=== PATIENT | female | born 1945 | race Asian ===

== ENCOUNTER 2020-01-28 08:21 | Day surgery (SDC) | payer OTHER, SELFPAY ==
[2020-01-22 10:03] VITALS: BMI 26.1
--- NOTE | 2020-01-24 08:45 | MHC.SHP ---
Pre-Procedural Eval Section A The patient is an INPATIENT: No The History & Physical has been completed within 30 days and I have reviewed it.: Yes Section B Chief Complaint: Cataract Left Eye Allergies: Allergies Allergy/AdvReac Type Severity Reaction Status Date / Time beet [BEET] Allergy Severe THROAT Verified 01/22/20 10:14 SWELLING carrot [CARROT] Allergy Severe THROAT Verified 01/22/20 10:14 SWELLING plantain [PLANTAIN] Allergy Severe THROAT Verified 01/22/20 10:14 SWELLING ARI Inhibitors AdvReac Intermediate Cough Verified 01/22/20 10:14 [ARI INHIBITORS] simvastatin [SIMVASTATIN] AdvReac Intermediate Muscle Pain Verified 01/22/20 10:14 ZULMA FRUIT Allergy Severe THROAT Uncoded 01/22/20 10:14 SWELLING SEASONAL ALLERGIES Allergy Intermediate ITCHY Uncoded 01/22/20 10:14 EYES, RUNNY NOSE Plan Diagnosis/Plan: Unchanged Patient has been examined and remains a candidate for the planned procedure
--- NOTE | 2020-01-25 09:02 | P.CONAN_ITS ---
Documented by User: Enid Tang 01/25/20 09:03 HPI - Anesthesia Eval Consult details Narrative: 75yo F for Cataract PCP cleared [facility] Past Medical History Medical History Arthritis Diabetes Elevated cholesterol HTN (hypertension) Lab test negative for COVID-19 virus Patient speaks only a foreign language Family History Family History Father No problems noted. Mother No problems noted. Surgical History Surgical History H/O colonoscopy History of appendectomy History of hemorrhoidectomy History of total knee arthroplasty History of tubal ligation Social History Social History Are you a primary medicare specialist to a significant other at home: No Do you presently have visiting nurse or other home services: No Smoking Status: Never smoker Use of substances other than those prescribed or required for medical reasons: No Have you been hit, kicked, punched, or otherwise hurt by someone within the past year? If so, by whom?: No Advance Directives Information Provided: No Recently lost weight without trying: No Meds Allergies Allergy/AdvReac Type Severity Reaction Status Date / Time beet [BEET] Allergy Severe THROAT Verified 01/22/20 10:14 SWELLING carrot [CARROT] Allergy Severe THROAT Verified 01/22/20 10:14 SWELLING plantain [PLANTAIN] Allergy Severe THROAT Verified 01/22/20 10:14 SWELLING ARI Inhibitors AdvReac Intermediate Cough Verified 01/22/20 10:14 [ARI INHIBITORS] simvastatin [SIMVASTATIN] AdvReac Intermediate Muscle Pain Verified 01/22/20 10:14 ZULMA FRUIT Allergy Severe THROAT Uncoded 01/22/20 10:14 SWELLING SEASONAL ALLERGIES Allergy Intermediate ITCHY Uncoded 01/22/20 10:14 EYES, RUNNY NOSE Home Medications Medication Instructions Recorded Confirmed Type ascorbic acid (vitamin C) [Vitamin 500 mg PO DAILY 01/22/20 01/22/20 History C] aspirin [Aspirin Low Dose] 81 mg PO DAILY 01/22/20 01/22/20 History ferrous sulfate [iron] 325 mg PO DAILY 01/22/20 01/22/20 History glimepiride 2 mg PO QAM 01/22/20 01/22/20 History loratadine 10 mg PO DAILY 01/22/20 01/22/20 History losartan 50 mg PO DAILY 01/22/20 01/28/20 History metformin 500 mg PO BID 01/22/20 01/22/20 History sdtyvqgpgmkv-rizngrec-yyorwh 1 tab PO DAILY 01/22/20 01/22/20 History [Centrum Silver] pravastatin 10 mg PO BEDTIME 01/22/20 01/22/20 History Exam Exam Date and Time: January 25, 2020901 Height,Weight and Vital Signs: Height 4 ft 10.5 in Weight 57.606 kg Narrative Narrative: EKG: NSR Documented by User: Lisa Early 01/28/20 09:46 PMFSH Past Medical History Medical History Arthritis Diabetes Elevated cholesterol HTN (hypertension) Lab test negative for COVID-19 virus Patient speaks only a foreign language Family History Family History Father No problems noted. Mother No problems noted. Surgical History Surgical History H/O colonoscopy History of appendectomy History of hemorrhoidectomy History of total knee arthroplasty History of tubal ligation Social History Social History Are you a primary medicare specialist to a significant other at home: No Do you presently have visiting nurse or other home services: No Smoking Status: Never smoker Use of substances other than those prescribed or required for medical reasons: No Have you been hit, kicked, punched, or otherwise hurt by someone within the past year? If so, by whom?: No Advance Directives Information Provided: No Recently lost weight without trying: No Meds Allergies Allergy/AdvReac Type Severity Reaction Status Date / Time beet [BEET] Allergy Severe THROAT Verified 01/22/20 10:14 SWELLING carrot [CARROT] Allergy Severe THROAT Verified 01/22/20 10:14 SWELLING plantain [PLANTAIN] Allergy Severe THROAT Verified 01/22/20 10:14 SWELLING ARI Inhibitors AdvReac Intermediate Cough Verified 01/22/20 10:14 [ARI INHIBITORS] simvastatin [SIMVASTATIN] AdvReac Intermediate Muscle Pain Verified 01/22/20 10:14 ZULMA FRUIT Allergy Severe THROAT Uncoded 01/22/20 10:14 SWELLING SEASONAL ALLERGIES Allergy Intermediate ITCHY Uncoded 01/22/20 10:14 EYES, RUNNY NOSE Home Medications Medication Instructions Recorded Confirmed Type ascorbic acid (vitamin C) [Vitamin 500 mg PO DAILY 01/22/20 01/22/20 History C] aspirin [Aspirin Low Dose] 81 mg PO DAILY 01/22/20 01/22/20 History ferrous sulfate [iron] 325 mg PO DAILY 01/22/20 01/22/20 History glimepiride 2 mg PO QAM 01/22/20 01/22/20 History loratadine 10 mg PO DAILY 01/22/20 01/22/20 History losartan 50 mg PO DAILY 01/22/20 01/28/20 History metformin 500 mg PO BID 01/22/20 01/22/20 History jclwmhfbqvbn-kezdwend-wbzjcp 1 tab PO DAILY 01/22/20 01/22/20 History [Centrum Silver] pravastatin 10 mg PO BEDTIME 01/22/20 01/22/20 History Exam Airway Mallampati Class: II TM Dist: >3cm Neck ROM: Full Heart: RRR Lungs: CTA BL Assessment and Plan Assessment Anesthesia Assessment: Anesthesia Plan Discussed and Chart Reviewed Final Anesthetic Review ASA Class: II Final Preanesthetic Review: Meds/Allgs Chart Reviewed and Consent Obtained/Reviewed Patient Risk: Low Procedure Risk: Low Anesthetic Plan Anesthetic Plan: MAC: Disposition: Standard PACU Documented by User: Monica Husain 01/28/20 10:14 [facility] Past Medical History Medical History Arthritis Diabetes Elevated cholesterol HTN (hypertension) Lab test negative for COVID-19 virus Patient speaks only a foreign language Family History Family History Father No problems noted. Mother No problems noted. Surgical History Surgical History H/O colonoscopy History of appendectomy History of hemorrhoidectomy History of total knee arthroplasty History of tubal ligation Social History Social History Are you a primary medicare specialist to a significant other at home: No Do you presently have visiting nurse or other home services: No Smoking Status: Never smoker Use of substances other than those prescribed or required for medical reasons: No Have you been hit, kicked, punched, or otherwise hurt by someone within the past year? If so, by whom?: No Advance Directives Information Provided: No Recently lost weight without trying: No Meds Allergies Allergy/AdvReac Type Severity Reaction Status Date / Time beet [BEET] Allergy Severe THROAT Verified 01/22/20 10:14 SWELLING carrot [CARROT] Allergy Severe THROAT Verified 01/22/20 10:14 SWELLING plantain [PLANTAIN] Allergy Severe THROAT Verified 01/22/20 10:14 SWELLING ARI Inhibitors AdvReac Intermediate Cough Verified 01/22/20 10:14 [ARI INHIBITORS] simvastatin [SIMVASTATIN] AdvReac Intermediate Muscle Pain Verified 01/22/20 10:14 ZULMA FRUIT Allergy Severe THROAT Uncoded 01/22/20 10:14 SWELLING SEASONAL ALLERGIES Allergy Intermediate ITCHY Uncoded 01/22/20 10:14 EYES, RUNNY NOSE Home Medications Medication Instructions Recorded Confirmed Type ascorbic acid (vitamin C) [Vitamin 500 mg PO DAILY 01/22/20 01/22/20 History C] aspirin [Aspirin Low Dose] 81 mg PO DAILY 01/22/20 01/22/20 History ferrous sulfate [iron] 325 mg PO DAILY 01/22/20 01/22/20 History glimepiride 2 mg PO QAM 01/22/20 01/22/20 History loratadine 10 mg PO DAILY 01/22/20 01/22/20 History losartan 50 mg PO DAILY 01/22/20 01/28/20 History metformin 500 mg PO BID 01/22/20 01/22/20 History repdtrvbwlnh-etapwjls-ehnczs 1 tab PO DAILY 01/22/20 01/22/20 History [Centrum Silver] pravastatin 10 mg PO BEDTIME 01/22/20 01/22/20 History
[2020-01-28 09:50] LABS: Glucose, Whole Blood 113 mg/dL (60-115)
[2020-01-28 10:02] VITALS: BP 187/87; PULSE 71; RESP 20; TEMP 36.1; O2SAT 100
[2020-01-28] MEDS: Tetracaine HCl/PF 0.5% Oph Sol 4 ML DROPS 1 DROP EYE-LEFT (10:12)
[2020-01-28] MEDS: Tropicamide 1 % Ophth Sol 3 ML BTL 1 DROP EYE-LEFT ×3 (10:14→10:21)
--- NOTE | 2020-01-28 10:46 | HO.PNOPHT ---
Ophthalmology Procedure Procedure Ophthalmology Viscoelastic: Angela Bobbyt Dual Pack Pro Ophthalmology Lenses: TECNIS [id number] (23) Procedure Notes: PREOPERATIVE DIAGNOSIS: Decreased visual acuity left eye secondary to cataract POSTOPERATIVE DIAGNOSIS: Same PROCEDURE: Left cataract extraction with intraocular lens insertion SURGEON: Alcon Nicole M.D. ANESTHESIA: Topical/MAC ESTIMATED BLOOD LOSS: None COMPLICATIONS: None After obtaining informed consent, the patient was brought to the operation room suite and placed in the supine position. After adequate sedation per anesthesia, topical drops of Tetracaine were given to the left eye. The eye was then prepped and draped in the usual sterile fashion. The operating room microscope was then positioned over the operative eye and a lid speculum placed. A paracentesis was created. Viscoelastic was then instilled into the anterior chamber. A three plane incision was then created temporally, utilizing a 2.85 mm keratome. Capsulotomy forceps were then utilized to create a circular tear capsulotomy. Hydrodissection and hydrodelineation were carried out until adequate mobilization of the nucleus occurred. Phacoemulsification was then utilized to remove the dense central nucleus followed by removal of the cortical material utilizing the automated aspiration irrigation unit. Viscoat elastic was instilled into the posterior capsular bag followed by placement of a posterior chamber intraocular lens without difficulty. The residual Viscoat elastic was then removed utilizing the automated IA machine. The wound was check and found to be watertight. The patient tolerated the procedure well and the lid speculum was removed. Intracameral injection of Vigamox 0.1 mL followed by a subtenon injection of Kenalog-40 0.2 mL were administered. The patient will be seen in the a.m.
[2020-01-28 10:50] VITALS: BP 166/78; PULSE 71; RESP 16; TEMP 36.1; O2SAT 99
== END 2020-01-28 11:06 | disposition home or self-care (01) ==
PROVIDERS: PCP Internal Medicine; Visit Provider Ophthalmology
PROC: (CPT 66985; principal; 2020-01-28 10:40)
DX: H25.12 Age-related nuclear cataract, left eye (principal); H54.7 Unspecified visual loss; I10 Essential (primary) hypertension; E11.9 Type 2 diabetes mellitus without complications; Z79.84 Long term (current) use of oral hypoglycemic drugs; Z79.899 Other long term (current) drug therapy; Z88.8 Allergy status to other drugs, medicaments and biological substances; Z96.651 Presence of right artificial knee joint
CPT/HCPCS: 66984; 82947; J2250; J3010; J3300; V2632

== ENCOUNTER 2020-02-18 08:59 | Day surgery (SDC) | payer OTHER, SELFPAY ==
[2020-01-22 10:29] VITALS: BMI 26.1
--- NOTE | 2020-02-11 14:32 | HO.ANESPROP2 ---
Documented by User: Enid Tang 02/11/20 14:32 HPI - Anesthesia Eval Consult details Narrative: 75yo F for Cataract Extraction 1st eye: Fent 50, Midaz 1 PMFSH Past Medical History Medical History Arthritis Diabetes Elevated cholesterol HTN (hypertension) Lab test negative for COVID-19 virus Patient speaks only a foreign language Family History Family History Father No problems noted. Mother No problems noted. Surgical History Surgical History H/O colonoscopy History of appendectomy History of hemorrhoidectomy History of total knee arthroplasty History of tubal ligation Social History Social History Smoking Status: Never smoker Use of substances other than those prescribed or required for medical reasons: No Have you been hit, kicked, punched, or otherwise hurt by someone within the past year? If so, by whom?: No Advance Directives Information Provided: No Recently lost weight without trying: No Meds Allergies Allergy/AdvReac Type Severity Reaction Status Date / Time beet [BEET] Allergy Severe THROAT Verified 01/22/20 10:14 SWELLING carrot [CARROT] Allergy Severe THROAT Verified 01/22/20 10:14 SWELLING plantain [PLANTAIN] Allergy Severe THROAT Verified 01/22/20 10:14 SWELLING ARI Inhibitors AdvReac Intermediate Cough Verified 01/22/20 10:14 [ARI INHIBITORS] simvastatin [SIMVASTATIN] AdvReac Intermediate Muscle Pain Verified 01/22/20 10:14 ZULMA FRUIT Allergy Severe THROAT Uncoded 01/22/20 10:14 SWELLING SEASONAL ALLERGIES Allergy Intermediate ITCHY Uncoded 01/22/20 10:14 EYES, RUNNY NOSE Home Medications Medication Instructions Recorded Confirmed Type ascorbic acid (vitamin C) [Vitamin 500 mg PO DAILY 01/22/20 01/22/20 History C] aspirin [Aspirin Low Dose] 81 mg PO DAILY 01/22/20 01/22/20 History ferrous sulfate [iron] 325 mg PO DAILY 01/22/20 01/22/20 History glimepiride 2 mg PO QAM 01/22/20 01/22/20 History loratadine 10 mg PO DAILY 01/22/20 01/22/20 History losartan 50 mg PO DAILY 01/22/20 01/28/20 History metformin 500 mg PO BID 01/22/20 01/22/20 History rnrnaosnzzss-ytatwiom-gnbtns 1 tab PO DAILY 01/22/20 01/22/20 History [Centrum Silver] pravastatin 10 mg PO BEDTIME 01/22/20 01/22/20 History Exam Exam Date and Time: February 11, 2020 1432 Height,Weight and Vital Signs: Height 4 ft 10.5 in Weight 57.606 kg Assessment and Plan Assessment Anesthesia Assessment: Chart Reviewed Documented by User: Lisa Early 02/18/20 09:54 PMFSH Past Medical History Medical History Arthritis Diabetes Elevated cholesterol HTN (hypertension) Lab test negative for COVID-19 virus Patient speaks only a foreign language Family History Family History Father No problems noted. Mother No problems noted. Surgical History Surgical History H/O colonoscopy History of appendectomy History of hemorrhoidectomy History of total knee arthroplasty History of tubal ligation Social History Social History Smoking Status: Never smoker Use of substances other than those prescribed or required for medical reasons: No Have you been hit, kicked, punched, or otherwise hurt by someone within the past year? If so, by whom?: No Advance Directives Information Provided: No Recently lost weight without trying: No Meds Allergies Allergy/AdvReac Type Severity Reaction Status Date / Time beet [BEET] Allergy Severe THROAT Verified 01/22/20 10:14 SWELLING carrot [CARROT] Allergy Severe THROAT Verified 01/22/20 10:14 SWELLING plantain [PLANTAIN] Allergy Severe THROAT Verified 01/22/20 10:14 SWELLING ARI Inhibitors AdvReac Intermediate Cough Verified 01/22/20 10:14 [ARI INHIBITORS] simvastatin [SIMVASTATIN] AdvReac Intermediate Muscle Pain Verified 01/22/20 10:14 ZULMA FRUIT Allergy Severe THROAT Uncoded 01/22/20 10:14 SWELLING SEASONAL ALLERGIES Allergy Intermediate ITCHY Uncoded 01/22/20 10:14 EYES, RUNNY NOSE Home Medications Medication Instructions Recorded Confirmed Type ascorbic acid (vitamin C) [Vitamin 500 mg PO DAILY 01/22/20 01/22/20 History C] aspirin [Aspirin Low Dose] 81 mg PO DAILY 01/22/20 01/22/20 History ferrous sulfate [iron] 325 mg PO DAILY 01/22/20 01/22/20 History glimepiride 2 mg PO QAM 01/22/20 01/22/20 History loratadine 10 mg PO DAILY 01/22/20 01/22/20 History losartan 50 mg PO DAILY 01/22/20 01/28/20 History metformin 500 mg PO BID 01/22/20 01/22/20 History nddjjswtxkkh-lhslnntx-cvjeba 1 tab PO DAILY 01/22/20 01/22/20 History [Centrum Silver] pravastatin 10 mg PO BEDTIME 01/22/20 01/22/20 History Exam Airway Mallampati Class: III TM Dist: >3cm Neck ROM: Full Heart: RRR Lungs: CTA BL Assessment and Plan Assessment Anesthesia Assessment: Anesthesia Plan Discussed and Chart Reviewed Final Anesthetic Review NPO: Yes (Sip water with meds) ASA Class: III Final Preanesthetic Review: Meds/Allgs Chart Reviewed and Consent Obtained/Reviewed Patient Risk: Low Procedure Risk: Low Anesthetic Plan Anesthetic Plan: MAC: Disposition: Standard PACU
--- NOTE | 2020-02-12 13:11 | MHC.SHP ---
Pre-Procedural Eval Section A The patient is an INPATIENT: No The History & Physical has been completed within 30 days and I have reviewed it.: Yes Section B Chief Complaint: Cataract Right Eye Allergies: Allergies Allergy/AdvReac Type Severity Reaction Status Date / Time beet [BEET] Allergy Severe THROAT Verified 01/22/20 10:14 SWELLING carrot [CARROT] Allergy Severe THROAT Verified 01/22/20 10:14 SWELLING plantain [PLANTAIN] Allergy Severe THROAT Verified 01/22/20 10:14 SWELLING ARI Inhibitors AdvReac Intermediate Cough Verified 01/22/20 10:14 [ARI INHIBITORS] simvastatin [SIMVASTATIN] AdvReac Intermediate Muscle Pain Verified 01/22/20 10:14 ZULMA FRUIT Allergy Severe THROAT Uncoded 01/22/20 10:14 SWELLING SEASONAL ALLERGIES Allergy Intermediate ITCHY Uncoded 01/22/20 10:14 EYES, RUNNY NOSE Plan Diagnosis/Plan: Unchanged Patient has been examined and remains a candidate for the planned procedure
[2020-02-18 09:38] VITALS: BP 171/68; PULSE 76; RESP 16; TEMP 36.1; O2SAT 98
[2020-02-18 09:46] LABS: Glucose, Whole Blood 103 mg/dL (60-115)
[2020-02-18] MEDS: Tetracaine HCl/PF 0.5% Oph Sol 4 ML DROPS 1 DROP EYE-RIGHT (09:46)
[2020-02-18] MEDS: Tropicamide 1 % Ophth Sol 3 ML BTL 1 DROP EYE-RIGHT ×3 (09:48→09:57)
[2020-02-18] MEDS: Lactated Ringers 500 ML 50 ML IV (09:56)
[2020-02-18 10:01] VITALS: BP 171/68; PULSE 76; RESP 16; TEMP 36.1; O2SAT 98
--- NOTE | 2020-02-18 10:53 | HO.PNOPHT ---
Ophthalmology Procedure Procedure Date of Service: 02/18/20 Ophthalmology Viscoelastic: Healon Duet Dual Pack Pro Ophthalmology Lenses: TECNIS [id number] (23.5) Procedure Notes: PREOPERATIVE DIAGNOSIS: Decreased visual acuity right eye secondary to cataract POSTOPERATIVE DIAGNOSIS: Same PROCEDURE: Right cataract extraction with intraocular lens insertion SURGEON: Alcon Nicole M.D. ANESTHESIA: Topical/MAC ESTIMATED BLOOD LOSS: None COMPLICATIONS: None After obtaining informed consent, the patient was brought to the operating room suite and placed in the supine position. After adequate sedation per anesthesia, topical drops of Tetracaine were given to the right eye. The eye was then prepped and draped in the usual sterile fashion. The operating room microscope was then positioned over the operative eye and a lid speculum placed. A paracentesis was created. Viscoelastic was then instilled into the anterior chamber. A three plane incision was then created temporally, utilizing a 2.85 mm keratome. Capsulotomy forceps were then utilized to create a circular tear capsulotomy. Hydrodissection and hydrodelineation were carried out until adequate mobilization of the nucleus occurred. Phacoemulsification was then utilized to remove the dense central nucleus followed by removal of the cortical material utilizing the automated aspiration irrigation unit. Viscoelastic was instilled into the posterior capsular bag followed by placement of a posterior chamber intraocular lens without difficulty. The residual Viscoelastic was then removed utilizing the automated IA machine. The wound was checked and found to be watertight. The patient tolerated the procedure well and the lid speculum was removed. Intracameral injection of Vigamox 0.1 mL followed by a subtenon injection of Kenalog-40 0.2 mL were administered. The patient will be seen in the a.m.
[2020-02-18 10:55] VITALS: BP 147/84; PULSE 79; RESP 16; TEMP 37.1; O2SAT 96
== END 2020-02-18 11:15 | disposition home or self-care (01) ==
PROVIDERS: PCP Internal Medicine; Visit Provider Ophthalmology
PROC: (CPT 66985; principal; 2020-02-18 11:10)
DX: H25.11 Age-related nuclear cataract, right eye (principal); E11.9 Type 2 diabetes mellitus without complications; I10 Essential (primary) hypertension; Z79.84 Long term (current) use of oral hypoglycemic drugs; Z79.899 Other long term (current) drug therapy
CPT/HCPCS: 66984; 82947; J2250; J3010; J3300; V2632

== ENCOUNTER 2020-02-23 09:43 | Outpatient (REF) | payer OTHER, SELFPAY ==
[2020-02-23 10:24] LABS: MANUAL DIFF FLAG NO
[2020-02-23 10:45] LABS: Creatinine Urine 81.12 mg/dL; Microalbum/Creatinine Ratio Ur 20.9 ug/mg cr
[2020-02-23 10:50] LABS: Alanine Aminotransferase 19 U/L (0-31); Albumin Level 4.2 g/dL (3.5-5.0); Alkaline Phosphatase 50 U/L (39-117); Anion Gap 15 (12-20); Aspartate Amino Transferase 17 U/L (5-31); Bilirubin Total 0.6 mg/dL (0.0-1.0); Blood Urea Nitrogen 10 mg/dL (9-16); Calcium 9.6 mg/dL (8.4-10.2); Carbon Dioxide 28 mmol/L (22-29); Chloride 102 mmol/L (96-108); Cholesterol 174 mg/dL; Estimated Glomerular Filt Rate > 60; Glucose Fasting 118 mg/dL (60-99); HDL Cholesterol 46 mg/dL; LDL Cholesterol Calculated 105 mg/dl; Potassium 4.9 mmol/l (3.3-5.1); Sodium 140 mmol/L (135-145); Total Protein 7.7 g/dL (6.5-8.0); Triglycerides 116 mg/dL
[2020-02-23 11:04] LABS: Basophils Absolute Auto 0.1 X10*3/uL (0.0-0.2); Basophils Percent Auto 0.9 % (0-2); Eosinophils Absolute Auto 0.7 X10*3/uL (0.0-0.4); Eosinophils Percent Auto 10.4 % (0-4); Hematocrit 36.3 % (37-47); Hemoglobin 11.1 g/dl (12.0-16.0); Imm Gran Abs Auto 0.02 X10*3/uL (0.00-0.03); Imm Gran Pct Auto 0.3 % (0.0-0.4); Lymphocytes Absolute Auto 2.4 X10*3/uL (1.2-4.9); Lymphocytes Percent Auto 35.8 % (20-40); Mean Corpuscular HGB Conc 30.6 g/dl (31.0-35.0); Mean Corpuscular Hemoglobin 23.7 pg (27.0-33.0); Mean Corpuscular Volume 77.6 fL (80-98); Mean Platelet Volume 9.2 fL (9.4-12.3); Monocytes Absolute Auto 0.5 X10*3/uL (0.1-1.2); Monocytes Percent Auto 7.5 % (2-11); Neutrophils Percent Auto 45.1 % (45-73); Platelet Count 372 X10*3/uL (160-400); Red Blood Count 4.68 X10*6/uL (4.20-5.50); Red Cell Distribution Width 15.6 % (11.0-16.0); White Blood Count 6.7 X10*3/uL (4.8-10.8)
[2020-02-23 11:14] LABS: Thyroid Stimulating Hormone 1.52 uIU/mL (0.32-4.0); Vitamin D 25-OH Total 25.8 ng/mL (>30)
[2020-02-23 11:15] LABS: T4 Thyroxine 8.5 ug/dL (4.5-12.0)
[2020-02-25 09:39] LABS: Folate > 20.0 ng/mL (> or = 4.0); Vitamin B12 249 pg/mL (200-900)
== END 2020-02-23 09:44 | disposition home or self-care (01) ==
LOC: HO.LAB 09:43
PROVIDERS: PCP Internal Medicine; Visit Provider Internal Medicine
DX: E11.65 Type 2 diabetes mellitus with hyperglycemia (principal); I10 Essential (primary) hypertension; E78.00 Pure hypercholesterolemia, unspecified
CPT/HCPCS: 36415; 80053; 80061; 82043; 82306; 82607; 82746; 84436; 84443; 85025

== ENCOUNTER 2020-10-18 09:33 | Outpatient (REF) | payer OTHER, SELFPAY ==
[2020-10-18 10:43] LABS: MANUAL DIFF FLAG NO
[2020-10-18 10:48] LABS: Basophils Absolute Auto 0.1 X10*3/uL (0.0-0.2); Basophils Percent Auto 0.9 % (0-2); Eosinophils Absolute Auto 0.5 X10*3/uL (0.0-0.4); Eosinophils Percent Auto 7.7 % (0-4); Hemoglobin 12.9 g/dl (12.0-16.0); Imm Gran Abs Auto 0.03 X10*3/uL (0.00-0.03); Imm Gran Pct Auto 0.5 % (0.0-0.4); Immature Retic Fraction 10.6 % (3.0-15.9); Lymphocytes Absolute Auto 2.5 X10*3/uL (1.2-4.9); Lymphocytes Percent Auto 38.2 % (20-40); Mean Corpuscular HGB Conc 33.1 g/dl (31.0-35.0); Mean Corpuscular Hemoglobin 29.1 pg (27.0-33.0); Mean Corpuscular Volume 87.8 fL (80-98); Mean Platelet Volume 9.3 fL (9.4-12.3); Monocytes Absolute Auto 0.5 X10*3/uL (0.1-1.2); Monocytes Percent Auto 7.9 % (2-11); Neutrophils Percent Auto 44.8 % (45-73); Platelet Count 287 X10*3/uL (160-400); Red Blood Count 4.44 X10*6/uL (4.20-5.50); Red Cell Distribution Width 12.7 % (11.0-16.0); Retic HGB Equivalent 32.5 pg (30.0-35.0); Reticulocyte Percent 1.4 % (0.5-1.8); Reticulocytes Absolute 0.063 X10*6/uL (0.026-0.095); White Blood Count 6.6 X10*3/uL (4.8-10.8)
[2020-10-18 10:54] LABS: Estimated Average Glucose 157 mg/dL; Hemoglobin A1c % 7.1 %
[2020-10-18 11:11] LABS: Alanine Aminotransferase 17 U/L (0-31); Albumin Level 4.3 g/dL (3.5-5.0); Alkaline Phosphatase 46 U/L (39-117); Anion Gap 16 (12-20); Aspartate Amino Transferase 15 U/L (5-31); Bilirubin Total 0.4 mg/dL (0.0-1.0); Blood Urea Nitrogen 7 mg/dL (9-16); Calcium 9.9 mg/dL (8.4-10.2); Carbon Dioxide 25 mmol/L (22-29); Chloride 104 mmol/L (96-108); Cholesterol 147 mg/dL; Estimated Glomerular Filt Rate > 60; Glucose Random 122 mg/dL (60-115); HDL Cholesterol 34 mg/dL; Iron 67 mcg/dL (30-160); LDL Cholesterol Calculated 70 mg/dl; Percent Iron Saturation 18 % (15-50); Potassium 4.6 mmol/L (3.3-5.1); Sodium 140 mmol/L (135-145); Total Iron Binding Capacity 380 mcg/dL (228-428); Total Protein 7.5 g/dL (6.5-8.0); Triglycerides 219 mg/dL; Unsaturated Iron Binding 313 ug/dL
[2020-10-18 11:32] LABS: Ferritin 53 ng/mL (10-250)
[2020-10-20 08:57] LABS: Folate > 20.0 ng/mL (> or = 4.0); Vitamin B12 1117 pg/mL (200-900)
== END 2020-10-18 09:34 | disposition home or self-care (01) ==
LOC: HO.LAB 09:33
PROVIDERS: PCP Internal Medicine; Visit Provider Internal Medicine
DX: E78.00 Pure hypercholesterolemia, unspecified (principal); D50.8 Other iron deficiency anemias; E11.65 Type 2 diabetes mellitus with hyperglycemia; E53.8 Deficiency of other specified B group vitamins
CPT/HCPCS: 36415; 80053; 80061; 82607; 82728; 82746; 83036; 83540; 85025; 85045

== ENCOUNTER 2021-03-05 09:32 | Outpatient (REF) | payer OTHER, SELFPAY ==
[2021-03-05 09:56] LABS: MANUAL DIFF FLAG NO
[2021-03-05 10:21] LABS: Basophils Percent Auto 0.7 % (0-2); Eosinophils Absolute Auto 0.5 X10*3/uL (0.0-0.4); Eosinophils Percent Auto 7.6 % (0-4); Hematocrit 39.9 % (37.0-47.0); Hemoglobin 13.2 g/dl (12.0-16.0); Imm Gran Abs Auto 0.02 X10*3/uL (0.00-0.03); Imm Gran Pct Auto 0.3 % (0.0-0.4); Immature Retic Fraction 11.1 % (3.0-15.9); Lymphocytes Absolute Auto 2.4 X10*3/uL (1.2-4.9); Lymphocytes Percent Auto 40.4 % (20-40); Mean Corpuscular HGB Conc 33.1 g/dl (31.0-35.0); Mean Corpuscular Hemoglobin 28.6 pg (27.0-33.0); Mean Corpuscular Volume 86.6 fL (80.0-98.0); Mean Platelet Volume 9.2 fL (9.4-12.3); Monocytes Absolute Auto 0.6 X10*3/uL (0.1-1.2); Monocytes Percent Auto 9.6 % (2-11); Neutrophils Absolute Auto 2.5 x10*3/uL (2.0-8.3); Neutrophils Percent Auto 41.4 % (45-73); Platelet Count 268 X10*3/uL (160-400); Red Blood Count 4.61 X10*6/uL (4.20-5.50); Red Cell Distribution Width 12.9 % (11.0-16.0); Retic HGB Equivalent 32.1 pg (30.0-35.0); Reticulocyte Percent 1.6 % (0.5-1.8); Reticulocytes Absolute 0.072 X10*6/uL (0.026-0.095)
[2021-03-05 10:25] LABS: Estimated Average Glucose 160 mg/dL; Hemoglobin A1c % 7.2 %
[2021-03-05 11:05] LABS: Alanine Aminotransferase 22 U/L (0-31); Albumin Level 4.1 g/dL (3.5-5.0); Alkaline Phosphatase 46 U/L (39-117); Anion Gap 14 (12-20); Aspartate Amino Transferase 16 U/L (5-31); Bilirubin Total 0.6 mg/dL (0.0-1.0); Blood Urea Nitrogen 8 mg/dL (9-16); Calcium 10.4 mg/dL (8.4-10.2); Carbon Dioxide 30 mmol/L (22-29); Chloride 103 mmol/L (96-108); Cholesterol 165 mg/dL; Estimated Glomerular Filt Rate > 60; Glucose Random 126 mg/dL (60-115); HDL Cholesterol 36 mg/dL; Iron 117 mcg/dL (30-160); LDL Cholesterol Calculated 88 mg/dl; Percent Iron Saturation 29 % (15-50); Potassium 5.2 mmol/L (3.3-5.1); Sodium 142 mmol/L (135-145); Total Iron Binding Capacity 409 mcg/dL (228-428); Total Protein 7.4 g/dL (6.5-8.0); Triglycerides 205 mg/dL; Unsaturated Iron Binding 292 ug/dL
[2021-03-05 11:06] LABS: Microalbum/Creatinine Ratio Ur 16.8 ug/mg cr
[2021-03-05 11:20] LABS: Ferritin 41 ng/mL (10-250); Free T4 (Free Thyroxine) 0.92 ng/dL (0.71-1.85); Thyroid Stimulating Hormone 2.02 uIU/mL (0.32-4.0); Vitamin D 25-OH Total 19.1 ng/mL (>30)
[2021-03-05 11:54] LABS: Folate > 20.0 ng/mL (> or = 4.0); Vitamin B12 400 pg/mL (200-900)
== END 2021-03-05 09:33 | disposition home or self-care (01) ==
LOC: HO.LAB 09:32
PROVIDERS: Visit Provider Internal Medicine
DX: D50.8 Other iron deficiency anemias (principal); E11.65 Type 2 diabetes mellitus with hyperglycemia; E78.00 Pure hypercholesterolemia, unspecified; I10 Essential (primary) hypertension
CPT/HCPCS: 36415; 80053; 80061; 82043; 82306; 82607; 82728; 82746; 83036; 83540; 84439; 84443; 85025; 85045

== ENCOUNTER 2021-08-31 14:26 | Outpatient (REF) | payer OTHER, SELFPAY ==
--- NOTE | ~2021-08-31 | XR_ITS ---
EXAMINATION: XR CHEST CLINICAL INFORMATION: Exam M81.0 - Age-related osteoporosis without current pathological fracture COMPARISON: Chest radiographs 09/23/2017, 02/05/2016 TECHNIQUE: 2 views of the chest were obtained. FINDINGS: The lungs are clear. The heart is within normal size. The vascularity is normal. There is no pneumothorax, airspace consolidation, groundglass opacity, or effusion. The hilar and mediastinal contours are similar to prior study. No acute bony abnormality. Again, there are multilevel degenerative changes thoracic spine. There is gaseous gastric fundus below the left diaphragm. No free air. XR/XR chest 2V IMPRESSION: Unremarkable examination.
== END 2021-08-31 14:27 | disposition home or self-care (01) ==
LOC: HO.XRAY 14:26
PROVIDERS: PCP Internal Medicine; Visit Provider Internal Medicine
DX: M81.0 Age-related osteoporosis without current pathological fracture (principal)
CPT/HCPCS: 71046

== ENCOUNTER 2021-09-09 12:48 | Outpatient (REF) | payer OTHER, SELFPAY ==
--- NOTE | ~2021-09-09 | MM_ITS ---
EXAMINATION: BONE DENSITOMETRY CLINICAL INDICATION: Age-related osteoporosis without current pathological fracture. COMPARISON: Previous BD dated 02/01/2019 and baseline BD dated 05/01/2009. TECHNIQUE: Using a SMART DXA System (software version: 13.1) manufactured by [employer], dual-energy x-ray absorptiometry was performed of the lumbar spine and left hip. The images are of good technical quality. Summary results are attached. FINDINGS: AP SPINE L1-L4: Current: BMD 0.989 g/cm2, Z-score 0.4, T-score -1.6, osteopenia, 1.0% increase from previous, 8.3% increase from baseline (<5% change is not significant). Prior: BMD 0.979 g/cm2. Baseline: BMD 0.913 g/cm2. LEFT FEMUR, NECK: Current: BMD 0.744 g/cm2, Z-score 0.1, T-score -2.1, osteopenia. Prior: BMD 0.765 g/cm2. Baseline: BMD 0.806 g/cm2. LEFT FEMUR, TOTAL: Current: BMD 0.888 g/cm2, Z-score 1.1, T-score -0.9, normal, 2.4% decrease from previous, 7.0% decrease from baseline (<5% change is not significant). Prior: BMD 0.910 g/cm2. Baseline: BMD 0.955 g/cm2. IDENTIFIED RISK FACTORS: Osteoporosis, history of fracture (adult). Early menopause, secondary osteoporosis, hysterectomy, bilateral oophorectomy. HISTORY OF FRACTURE: None listed. MEDICATIONS: Vitamin D. MM/XR DEXA axial skeleton IMPRESSION: 1. DIAGNOSIS: Osteopenia based on the lowest T-score value of -2.1 in the femoral neck applying World Health Organization criteria. 2. 10-YEAR FRACTURE RISK PREDICTION, FRAX: Major osteoporotic fracture (clinical spine, forearm, hip or shoulder) 17.6%. Hip fracture 10.9%. 3. Treatment Recommendations: NOF guidelines recommend consideration for treatment in postmenopausal women and men age 50 and older presenting with the following: -A hip or vertebral (clinical or morphometric) fracture. -T-score less than or equal to -2.5 at the femoral neck or spine after appropriate evaluation to exclude secondary causes. -Low bone mass at the hip or spine and a 10-year fracture probability by FRAX of greater than or equal to 3% for hip fracture or greater than or equal to 20% for major osteoporotic fracture based on the [place] adapted WHO algorithm. 4. Other Recommendations: All treatment decisions require clinical judgment and consideration of individual patient factors, including patient preferences, comorbidities, previous drug use, risk factors not captured in the FRAX model (e.g. frailty, falls, vitamin D deficiency, increased bone turnover, interval significant decline in bone density) and possible under or overestimation of fracture risk by FRAX. Additional medical evaluation for secondary cause of low bone mineral density may be appropriate. FUTURE SCAN RECOMMENDATION: People with diagnosed cases of osteoporosis or at high risk for fracture should have regular bone mineral density tests. For patients eligible for Medicare, routine testing is allowed once every 2 years. The testing frequency can be increased to one year for patients who have rapidly progressing disease, those who are receiving or discontinuing medical therapy to restore bone mass, or have additional risk factors.
== END 2021-09-09 12:49 | disposition home or self-care (01) ==
LOC: HO.MAMMO 12:48
PROVIDERS: PCP Internal Medicine; Visit Provider Internal Medicine
DX: Z13.820 Encounter for screening for osteoporosis (principal); M81.0 Age-related osteoporosis without current pathological fracture; Z78.0 Asymptomatic menopausal state
CPT/HCPCS: 77080

== ENCOUNTER 2021-12-03 12:34 | Outpatient (REF) | payer OTHER, SELFPAY ==
--- NOTE | ~2021-12-03 | XR_ITS ---
EXAMINATION: X-RAY KNEES STANDING BILATERAL CLINICAL INFORMATION: Right knee pain. COMPARISON: 01/08/2019 knee radiographs. TECHNIQUE: Lateral and axillary views of the left knee were obtained along with bilateral standing AP views of the knees. FINDINGS: Moderate to severe tricompartmental degenerative joint changes are seen in the left knee most pronounced in the medial femoral-tibial compartment with joint space narrowing and periarticular sclerosis. There is a trace suprapatellar joint effusion. No acute fracture. The soft tissues are unremarkable. Right knee hardware appears intact without abnormality. XR/XR knee LT 2V IMPRESSION: 1. Left knee moderate to severe degenerative joint changes without acute abnormality or significant change. 2. No overt right knee hardware abnormality.
--- NOTE | ~2021-12-03 | XR_ITS ---
EXAMINATION: X-RAY KNEES STANDING BILATERAL CLINICAL INFORMATION: Right knee pain. COMPARISON: 01/08/2019 knee radiographs. TECHNIQUE: Lateral and axillary views of the left knee were obtained along with bilateral standing AP views of the knees. FINDINGS: Moderate to severe tricompartmental degenerative joint changes are seen in the left knee most pronounced in the medial femoral-tibial compartment with joint space narrowing and periarticular sclerosis. There is a trace suprapatellar joint effusion. No acute fracture. The soft tissues are unremarkable. Right knee hardware appears intact without abnormality. XR/XR knee standing BI IMPRESSION: 1. Left knee moderate to severe degenerative joint changes without acute abnormality or significant change. 2. No overt right knee hardware abnormality.
== END 2021-12-03 12:35 | disposition home or self-care (01) ==
LOC: HO.HOSX 12:34
PROVIDERS: Visit Provider Physician Assistant
DX: M17.12 Unilateral primary osteoarthritis, left knee (principal)
CPT/HCPCS: 20610; 73560; 73565; J1020

== ENCOUNTER → 2022-01-21 13:55 | Outpatient (BNVA) | payer OTHER, SELFPAY | PROVIDERS: PCP Internal Medicine; Visit Provider Physician Assistant | DX: M17.12 Unilateral primary osteoarthritis, left knee (principal) | CPT/HCPCS: 20610; J7323 ==

== ENCOUNTER → 2022-01-28 13:19 | Outpatient (BNVA) | payer OTHER, SELFPAY | PROVIDERS: PCP Internal Medicine; Visit Provider Physician Assistant | DX: M17.12 Unilateral primary osteoarthritis, left knee (principal) | CPT/HCPCS: 20610; J7323 ==

== ENCOUNTER → 2022-02-04 13:16 | Outpatient (BNVA) | payer OTHER, SELFPAY | PROVIDERS: PCP Internal Medicine; Visit Provider Physician Assistant | DX: M17.12 Unilateral primary osteoarthritis, left knee (principal) | CPT/HCPCS: 20610; J7323 ==

== ENCOUNTER 2022-05-26 09:45 | Outpatient (REF) | payer OTHER, SELFPAY ==
[2022-05-26 10:10] LABS: MANUAL DIFF FLAG NO
[2022-05-26 10:28] LABS: Basophils Absolute Auto 0.1 X10*3/uL (0.0-0.2); Basophils Percent Auto 0.9 % (0-2); Eosinophils Absolute Auto 0.5 X10*3/uL (0.0-0.4); Eosinophils Percent Auto 7.8 % (0-4); Hematocrit 39.2 % (37.0-47.0); Imm Gran Abs Auto 0.02 X10*3/uL (0.00-0.03); Imm Gran Pct Auto 0.3 % (0.0-0.4); Lymphocytes Absolute Auto 2.6 X10*3/uL (1.2-4.9); Lymphocytes Percent Auto 40.2 % (20-40); Mean Corpuscular HGB Conc 33.2 g/dl (31.0-35.0); Mean Corpuscular Hemoglobin 27.9 pg (27.0-33.0); Mean Corpuscular Volume 84.1 fL (80.0-98.0); Mean Platelet Volume 9.1 fL (9.4-12.3); Monocytes Absolute Auto 0.6 X10*3/uL (0.1-1.2); Monocytes Percent Auto 8.6 % (2-11); Neutrophils Absolute Auto 2.7 x10*3/uL (2.0-8.3); Neutrophils Percent Auto 42.2 % (45-73); Platelet Count 280 X10*3/uL (160-400); Red Blood Count 4.66 X10*6/uL (4.20-5.50); White Blood Count 6.4 X10*3/uL (4.8-10.8)
[2022-05-26 10:41] LABS: Estimated Average Glucose 186 mg/dL; Hemoglobin A1c % 8.1 %
[2022-05-26 11:07] LABS: Alanine Aminotransferase 19 U/L (0-31); Albumin Level 4.2 g/dL (3.5-5.0); Alkaline Phosphatase 48 U/L (39-117); Anion Gap 15 (12-20); Aspartate Amino Transferase 16 U/L (5-31); Bilirubin Total 0.6 mg/dL (0.0-1.0); Blood Urea Nitrogen 8 mg/dL (9-16); Calcium 9.9 mg/dL (8.4-10.2); Carbon Dioxide 28 mmol/L (22-29); Chloride 104 mmol/L (96-108); Cholesterol 180 mg/dL; Estimated Glomerular Filt Rate > 60; Glucose Random 143 mg/dL (60-115); HDL Cholesterol 37 mg/dL; LDL Cholesterol Calculated 98 mg/dl; Potassium 4.9 mmol/L (3.3-5.1); Sodium 142 mmol/L (135-145); Total Protein 7.2 g/dL (6.5-8.0); Triglycerides 229 mg/dL
[2022-05-26 11:39] LABS: Folate 12.3 ng/mL (> or = 4.0); Free T4 (Free Thyroxine) 0.92 ng/dL (0.71-1.85); Vitamin B12 384 pg/mL (200-900); Vitamin D 25-OH Total 46.9 ng/mL (>30)
[2022-05-26 12:17] LABS: Microalbum/Creatinine Ratio Ur 16.5 ug/mg cr
== END 2022-05-26 09:46 | disposition home or self-care (01) ==
LOC: HO.LAB 09:45
PROVIDERS: PCP Internal Medicine; Visit Provider Internal Medicine
DX: E11.65 Type 2 diabetes mellitus with hyperglycemia (principal); E78.00 Pure hypercholesterolemia, unspecified; I10 Essential (primary) hypertension; M85.80 Other specified disorders of bone density and structure, unspecified site; E55.9 Vitamin D deficiency, unspecified
CPT/HCPCS: 36415; 80053; 80061; 82043; 82306; 82607; 82746; 83036; 84439; 84443; 85025

== ENCOUNTER 2022-06-09 12:13 | Outpatient (REF) | payer OTHER, SELFPAY ==
[2022-06-09 13:04] LABS: INTERNATIONAL NORM RATIO 1.1 (0.9-1.1); Prothrombin Time 13.2 SEC (10.0-13.1)
== END 2022-06-09 12:14 | disposition home or self-care (01) ==
LOC: HO.LAB 12:13
PROVIDERS: PCP Internal Medicine; Visit Provider Nurse Practitioner Family
DX: Z01.818 Encounter for other preprocedural examination (principal); E11.65 Type 2 diabetes mellitus with hyperglycemia; I10 Essential (primary) hypertension; D50.9 Iron deficiency anemia, unspecified; E11.9 Type 2 diabetes mellitus without complications; Z96.652 Presence of left artificial knee joint
CPT/HCPCS: 36415; 85610

== ENCOUNTER → 2022-06-25 10:26 | Outpatient (BNVA) | payer OTHER, SELFPAY | PROVIDERS: PCP Internal Medicine; Visit Provider Physician Assistant | DX: Z13.89 Encounter for screening for other disorder (principal) ==

== ENCOUNTER 2022-06-30 06:39 | Inpatient (IN) | payer OTHER, SELFPAY ==
[2022-06-23 12:16] VITALS: BP 145/67; PULSE 84; RESP 20; O2SAT 97; BMI 27.1
[2022-06-23 15:01] LABS: MRSA Nasal PCR NEGATIVE (Negative); SA Nasal PCR NEGATIVE (Negative)
--- NOTE | 2022-06-29 09:00 | P.CONAN_ITS ---
Documented by User: Enid Tang NP 06/29/22 09:05 HPI - Anesthesia Eval Consult details Narrative: 77yo F for Left Knee Replacement Total PCP cleared Right [facility] Active Problems Active Problems: All Active Problems (Updated 06/09/22 @ 11:55 by PAMELA Boo) HTN (hypertension) (Acute) Iron deficiency anemia (Acute) Allergic rhinitis (Acute) Cough (Acute) Osteoarthritis of left knee (Acute) Osteopenia (Acute) Preoperative clearance (Acute) Hypercholesterolemia (Acute) Knee osteoarthritis (Acute) Vitamin B12 deficiency (Acute) Type 2 diabetes mellitus with hyperglycemia (Acute) Past Medical History Medical History Age-related osteoporosis without current pathological fracture Anemia Arthritis Cataract Hypercholesterolemia Knee osteoarthritis Osteoporosis Patient speaks only a foreign language Type 2 diabetes mellitus with hyperglycemia Vitamin B12 deficiency Vitamin D deficiency Family History Family History Father No problems noted. Mother No problems noted. Brother No problems noted. Son No problems noted. Son No problems noted. Daughter No problems noted. Sister No problems noted. Sister No problems noted. Sister No problems noted. Surgical History Surgical History H/O colonoscopy History of appendectomy History of bilateral cataract extraction History of hemorrhoidectomy History of total knee arthroplasty History of tubal ligation Social History Social History Housing: House Are you a primary director of managed care to a significant other at home: No Do you presently have visiting nurse or other home services: No Alcohol intake: never Patient Tobacco Use Status: Never used Tobacco Tobacco use type: Cigarette e-Cigarette/Vaping Use: Never Used Second Hand Smoke Exposure: No Use of substances other than those prescribed or required for medical reasons: No Have you been hit, kicked, punched, or otherwise hurt by someone within the past year? 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 Cognitive needs: No Hearing needs: No Vision needs: No Meds Allergies Allergy/AdvReac Type Severity Reaction Status Date / Time beet [BEET] Allergy Severe THROAT Verified 06/25/22 10:44 SWELLING carrot [CARROT] Allergy Severe THROAT Verified 06/25/22 10:44 SWELLING plantain [PLANTAIN] Allergy Severe THROAT Verified 06/25/22 10:44 SWELLING ARI Inhibitors AdvReac Intermediate Cough Verified 06/25/22 10:44 [ARI INHIBITORS] simvastatin [SIMVASTATIN] AdvReac Intermediate Muscle Pain Verified 06/25/22 10:44 ZULMA FRUIT Allergy Severe THROAT Uncoded 06/25/22 10:44 SWELLING SEASONAL ALLERGIES Allergy Intermediate ITCHY Uncoded 06/25/22 10:44 EYES, RUNNY NOSE Home Medications Medication Instructions Recorded Confirmed Last Taken Type cholecalciferol (vitamin D3) 25 25 mcg PO DAILY 03/31/21 06/25/22 Unknown History mcg (1,000 unit) tablet loratadine 10 mg tablet (Allergy 10 mg PO DAILY 06/25/22 06/25/22 Unknown History Relief (loratadine)) Exam Exam Date and Time: June 29, 2022 0900 Height,Weight and Vital Signs: Height 4 ft 10 in Weight 58.967 kg Last Vital Signs Pulse 84 06/23/22 12:16 Resp 20 06/23/22 12:16 BP 145/67 H 06/23/22 12:16 Pulse Ox 97 06/23/22 12:16 O2 Del Method Room Air 06/23/22 12:16 Pertinent Lab Results Pertinent Lab Results: Laboratory Tests 06/23/22 06/23/22 12:55 Unknown Nasal Screen MRSA (PCR) NEGATIVE Nasal S. aureus Screen NEGATIVE Nasal MRSA/S.aureus Interp SEE NOTE Blood Type O Positive Antibody Screen NEGATIVE Laboratory Tests 05/26/22 05/26/22 10:09 10:09 WBC 6.4 Hgb 13.0 Hct 39.2 Plt Count 280 Sodium 142 Potassium 4.9 Chloride 104 Carbon Dioxide 28 BUN 8 L Creatinine 0.67 Narrative Narrative: EKG 05/2022 NSR, 72 BPM Assessment and Plan Assessment Anesthesia Assessment: Chart Reviewed Documented by User: Manish Ha MD 06/30/22 07:28 [facility] Past Medical History Medical History Age-related osteoporosis without current pathological fracture Anemia Arthritis Cataract Hypercholesterolemia Knee osteoarthritis Osteoporosis Patient speaks only a foreign language Type 2 diabetes mellitus with hyperglycemia Vitamin B12 deficiency Vitamin D deficiency Family History Family History Father No problems noted. Mother No problems noted. Brother No problems noted. Son No problems noted. Son No problems noted. Daughter No problems noted. Sister No problems noted. Sister No problems noted. Sister No problems noted. Family history of problems with anesthesia: No Surgical History Surgical History H/O colonoscopy History of appendectomy History of bilateral cataract extraction History of hemorrhoidectomy History of total knee arthroplasty History of tubal ligation History of Problems with Anesthesia: No Social History Social History Housing: House Are you a primary director of managed care to a significant other at home: No Do you presently have visiting nurse or other home services: No Alcohol intake: never Patient Tobacco Use Status: Never used Tobacco Tobacco use type: Cigarette e-Cigarette/Vaping Use: Never Used Second Hand Smoke Exposure: No Use of substances other than those prescribed or required for medical reasons: No Have you been hit, kicked, punched, or otherwise hurt by someone within the past year? 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 Cognitive needs: No Hearing needs: No Vision needs: No Meds Allergies Allergy/AdvReac Type Severity Reaction Status Date / Time beet [BEET] Allergy Severe THROAT Verified 06/25/22 10:44 SWELLING carrot [CARROT] Allergy Severe THROAT Verified 06/25/22 10:44 SWELLING plantain [PLANTAIN] Allergy Severe THROAT Verified 06/25/22 10:44 SWELLING ARI Inhibitors AdvReac Intermediate Cough Verified 06/25/22 10:44 [ARI INHIBITORS] simvastatin [SIMVASTATIN] AdvReac Intermediate Muscle Pain Verified 06/25/22 10:44 ZULMA FRUIT Allergy Severe THROAT Uncoded 06/25/22 10:44 SWELLING SEASONAL ALLERGIES Allergy Intermediate ITCHY Uncoded 06/25/22 10:44 EYES, RUNNY NOSE Home Medications Medication Instructions Recorded Confirmed Last Taken Type cholecalciferol (vitamin D3) 25 25 mcg PO DAILY 03/31/21 06/25/22 Unknown History mcg (1,000 unit) tablet loratadine 10 mg tablet (Allergy 10 mg PO DAILY 06/25/22 06/25/22 Unknown History Relief (loratadine)) Exam Airway Mallampati Class: II TM Dist: <=3cm Neck ROM: Limited Heart: rrr Lungs: cta Assessment and Plan Assessment Anesthesia Assessment: Anesthesia Plan Discussed Final Anesthetic Review Family History of Problems with Anesthesia: No History of Problems with Anesthesia: No NPO: Yes ASA Class: III Final Preanesthetic Review: No Changes in Pt Med Stat, Meds/Allgs Chart Reviewed, Consent Obtained/Reviewed and Anes Risks/Benef Reviewed Patient Risk: Intermediate Procedure Risk: Intermediate Anesthetic Plan Anesthetic Plan: Spinal and Regional Block Disposition: Standard PACU
[2022-06-30] VITALS (11 sets, daily range): BP systolic 113–157; BP diastolic 60–78; PULSE 66–105; RESP 15–20; TEMP 36.3–37.5; O2SAT 93–97
--- NOTE | ~2022-06-30 | XR_ITS ---
EXAMINATION: XR KNEE, LEFT CLINICAL INFORMATION: Postop COMPARISON: Previous x-ray November 2021 TECHNIQUE: Two views of the left knee. FINDINGS: There is a new 3 component knee replacement in satisfactory position. Bone alignment is normal. No fracture or dislocation Postoperative changes to the soft tissues. XR/XR knee LT 2V IMPRESSION: Satisfactory appearance of left knee replacement.
[2022-06-30 07:03] LABS: Hematocrit 39.3 % (37.0-47.0); Hemoglobin 13.2 g/dl (12.0-16.0)
[2022-06-30 07:16] LABS: Glucose, Whole Blood 163 mg/dL (60-115)
[2022-06-30 07:34] LABS: COVID-19 Test Negative (Negative); IDNOW Serial# 08D9AD1C
[2022-06-30] MEDS: Lactated Ringers 1,000 ML 100 ML IVCONT ×3 (07:39→20:25)
--- NOTE | 2022-06-30 10:25 | PHA.MEDREC ---
Pharmacy Consult ? Medication Reconciliation Pharmacy has completed the medication reconciliation. Pharmacy has confirmed the med rec done by short stay nursing.
[2022-06-30] MEDS: glipiZIDE 5 MG TABLET PO (11:24)
[2022-06-30] MEDS: oxyCODONE HCl Immed Release 5 MG TABLET PO ×2 (11:24→18:32)
[2022-06-30] MEDS: HYDROmorphone HCl 0.5 MG/0.5 ML SYRINGE 0.25 MG IVPUSH ×3 (12:31→20:18)
[2022-06-30] MEDS: ceFAZolin Sodium/Dextrose,Iso 2 GM/50 ML PIGGYBACK IV (13:11)
[2022-06-30] MEDS: oxyCODONE HCl ER 10 MG TAB.ER.12H PO ×2 (13:12→20:18)
--- NOTE | 2022-06-30 14:08 | MHC.CM.PN ---
Met with patient family at request of Physical Therapist. Pt/Family interested in STR. Preferences obtained and referrals have been sent. PT rec is Home with services. It was explained to the Pt and family that Insurance authorization will be needed for STR. They understand that P.T. is recommending Home with services. Once a bed is offered the SNF will seek auth. DISPO will be up to [facility].
--- NOTE | 2022-06-30 16:17 | PM.OP ---
Brief Operative Note Date of Service: 06/30/22 Pre-op diagnosis: Left knee OA Post-op diagnosis: same Procedure: Left TKA Implants: [place] Triathlon press fit tibia and cemented PS femur with 12PS insert and 29a press fit patella Surgeon: Gen Kay MD Anesthesia: GETA Was an Contracts Specialist used for this Procedure?: No Contracts Specialist: Donna Santos Estimated blood loss (mL): 150 IV fluids (mL): 1,000 Pathology: other Condition: stable Disposition: PACU
--- NOTE | 2022-06-30 18:31 | HO.PM.IMCN ---
History of Present Illness Data of Consult Service Date: 06/30/22 Requesting physician: Ruthann Carter Primary Care Provider: MD ROMAIN Stokes Reason for consult: medical management 77 year old female with history of iron deficiency anemia, vtiamin b12 deficiency, vegetarian diet, noninsulin dependent type 2 diabetes, diabetic polyneuropathy, and hypertension admitted to orthopedic surgery for management of osteoarthritis left knee s/p TKA with consult placed to hospitalist service for medical management. Pt is reporting 8/10 pain of the left knee. Has no other complaints at this time. Review of Systems Review of Systems: General: No fevers, malaise, unintentional weight loss HEENT: No blurred vision, diplopia. No sore throat, nasal congestion, rhinorrhea, sinus pain, ear pain Cardiovascular: No chest pain, palpitations, or leg edema Respiratory: No shortness of breath, wheezing, cough GI: No abdominal pain, nausea, vomiting, diarrhea, constipation, melena, hematochezia : No dysuria, hematuria, increased urinary frequency, decreased urinary output MSK: No myalgia, back pain. +left knee pain Neuro: No headaches, weakness, paresthesias Skin: No rashes or lesions PMFSH Medical History Age-related osteoporosis without current pathological fracture Anemia Arthritis Cataract Hypercholesterolemia Knee osteoarthritis Osteoporosis Patient speaks only a foreign language Type 2 diabetes mellitus with hyperglycemia Vitamin B12 deficiency Vitamin D deficiency Family History Father No problems noted. Mother No problems noted. Brother No problems noted. Son No problems noted. Son No problems noted. Daughter No problems noted. Sister No problems noted. Sister No problems noted. Sister No problems noted. Surgical History H/O colonoscopy History of appendectomy History of bilateral cataract extraction History of hemorrhoidectomy History of total knee arthroplasty History of tubal ligation Social History Household Members: Family Housing: Apartment Are you a primary manager home healthcare to a significant other at home: No Do you presently have visiting nurse or other home services: No Alcohol intake: never Patient Tobacco Use Status: Never used Tobacco Tobacco use type: Cigarette e-Cigarette/Vaping Use: Never Used Second Hand Smoke Exposure: No Use of substances other than those prescribed or required for medical reasons: No Currently Displaying Signs/Symptoms of Drug Intoxication Withdrawal: No Have you been hit, kicked, punched, or otherwise hurt by someone within the past year? If so, by whom?: No Do you feel safe in your current relationship?: Yes Is there a partner from a previous relationship who is making you feel unsafe now?: No Are you made to feel afraid or neglected: No Are you DNR?: No Advance Directives: No Advance Directives Information Provided: Yes (Kobe Malone Daughter in law- copy on chart) Advance Directives on File: No Do you have thoughts of harming others: None Do you have a plan to hurt others: No Plan Recently lost weight without trying: No Eating poorly because of decreased appetite: No Nutrition Risks: No Nutritional Risk Patient : No : No Poor oral hygiene: No service: No Current occupational status: retired 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 Cognitive needs: No Hearing needs: No Vision needs: No Meds Allergies Allergy/AdvReac Type Severity Reaction Status Date / Time beet [BEET] Allergy Severe THROAT Verified 06/25/22 10:44 SWELLING carrot [CARROT] Allergy Severe THROAT Verified 06/25/22 10:44 SWELLING plantain [PLANTAIN] Allergy Severe THROAT Verified 06/25/22 10:44 SWELLING ARI Inhibitors AdvReac Intermediate Cough Verified 06/25/22 10:44 [ARI INHIBITORS] simvastatin [SIMVASTATIN] AdvReac Intermediate Muscle Pain Verified 06/25/22 10:44 ZULMA FRUIT Allergy Severe THROAT Uncoded 06/25/22 10:44 SWELLING SEASONAL ALLERGIES Allergy Intermediate ITCHY Uncoded 06/25/22 10:44 EYES, RUNNY NOSE Active Medications: Current Medications Acetaminophen (Acetaminophen 325 Mg Tablet) 650 mg PO Q6H PRN PRN Reason: Pain, Mild (Pain Scale 1-3) Amlodipine Besylate (Amlodipine Besylate 5 Mg Tablet) 5 mg PO DAILY TIMOTEO; Protocol Aspirin (Aspirin 325 Mg Tablet) 325 mg PO BID [facility] Celecoxib (Celecoxib 200 Mg Capsule) 200 mg PO BID [facility] Docusate Sodium (Docusate Sodium 100 Mg Capsule) 100 mg PO BID [facility] Glipizide (Glipizide 5 Mg Tablet) 5 mg PO DAILY [facility] Last Admin: 06/30/22 11:24 Dose: 5 mg Hydromorphone HCl (Hydromorphone Hcl 0.5 Mg/0.5 Ml Syringe) 0.25 mg IVPUSH Q4H PRN; Protocol PRN Reason: Pain, Severe (Pain Scale 7-10) Last Admin: 06/30/22 16:21 Dose: 0.25 mg Lactated Ringer's (Lr) 1,000 mls @ 100 mls/hr IVCONT .Q10H [facility] Last Admin: 06/30/22 11:25 Dose: 100 mls/hr Lactated Ringer's (Lr) 1,000 mls @ 100 mls/hr IVCONT .Q10H [facility] Last Admin: 06/30/22 11:27 Dose: Not Given Loratadine (Loratadine 10 Mg Tablet) 10 mg PO DAILY [facility] Losartan Potassium (Losartan Potassium 50 Mg Tablet) 50 mg PO DAILY [facility]; Protocol Metformin HCl (Metformin Hcl 500 Mg Tablet) 500 mg PO BID [facility] Ondansetron HCl (Ondansetron Hcl 4 Mg/2 Ml Vial) 4 mg IVPUSH Q8H PRN PRN Reason: Nausea and Vomiting Oxycodone HCl (Oxycodone Hcl Immed Release 5 Mg Tablet) 5 mg PO Q4H PRN PRN Reason: Pain, Moderate (Pain Scale 4-6 Last Admin: 06/30/22 11:24 Dose: 5 mg Oxycodone HCl (Oxycodone Hcl Er 10 Mg Tab.Er.12h) 10 mg PO BID [facility] Last Admin: 06/30/22 13:12 Dose: 10 mg Pravastatin Sodium (Pravastatin Sodium 10 Mg Tablet) 10 mg PO DAILY [facility] Sodium Chloride (0.9 % Sodium Chloride Flush 3 Ml Syringe) 3 ml IVFLUSH QSHIFT [facility] Last Admin: 06/30/22 14:56 Dose: Not Given Vitamin D (Cholecalciferol (Vitamin D3) 25 Mcg Tablet) 25 mcg PO DAILY [facility] Home Medications Medication Instructions Recorded Confirmed Last Taken Type cholecalciferol (vitamin D3) 25 25 mcg PO DAILY 03/31/21 06/25/22 06/29/22 History mcg (1,000 unit) tablet loratadine 10 mg tablet (Allergy 10 mg PO DAILY 06/25/22 06/30/22 06/29/22 History Relief (loratadine)) Physical Exam Vital Signs and Narrative: Vital Signs: Last Vital Signs Temp 97.9 F 06/30/22 15:33 Pulse 79 06/30/22 15:33 Resp 20 06/30/22 15:33 BP 157/74 H 06/30/22 15:33 Pulse Ox 93 06/30/22 15:33 O2 Del Method Room Air 06/30/22 15:33 BMI result Body Mass Index 27.1 Constitutional - Awake and Alert, No apparent distress Eyes - PERRLA, EOMI Cardiovascular - S1S2, RRR, No edema Respiratory - Normal lung expansion, Normal respiratory effort, No respiratory distress, CTA bilaterally Gastrointestinal - NT / ND; +BS; No rebound or guarding Extremities - no calf tenderness bilaterally, no swelling Skin - Warm/Dry Neurological - Alert & oriented x3 Psychological - Appropriate affect Results Labs 06/30/22 06:56 Labs: Laboratory Results - last 24 hr 06/30/22 06/30/22 06:56 07:10 POC Glucose 163 H COVID-19 ([facility]) Negative COVID-19 Clin Com See Note Imaging Radiologist's Impressions: Impressions Knee X-Ray 06/30/22 10:32 IMPRESSION: Satisfactory appearance of left knee replacement. Assessment and Plan (1) Knee osteoarthritis: Status: Acute Plan 77 year old female with history of iron deficiency anemia, vtiamin b12 deficiency, vegetarian diet, noninsulin dependent type 2 diabetes, diabetic polyneuropathy, and hypertension admitted to orthopedic surgery for management of osteoarthritis left knee s/p TKA with consult placed to hospitalist service for medical management. #Osteoarthritis left knee s/p Left TKA POD 0 -plan per orthopedic surgery # [id number] type 2 diabetes- without hyperglycemia -POC glucose -Diabetic diet -Continue home meds #HTN- reasonably controlled -resume antihypertives tomorrow am #Diabetic polyneuropathy -continue gabapentin Thank you for allowing me to participate in this consult. Signing off at this time. Please do not hesitate to call for further questions. Time Spent With Patient Time: Total time managing care of this patient today ____ minutes.
[2022-06-30] MEDS: Acetaminophen 325 MG TABLET 650 MG PO (20:17)
[2022-06-30] MEDS: metFORMIN HCl 500 MG TABLET PO (20:18)
[2022-06-30] MEDS: 0.9 % Sodium Chloride Flush 3 ML SYRINGE IVFLUSH (20:18)
[2022-06-30] MEDS: Celecoxib 200 MG CAPSULE PO (20:18)
[2022-06-30] MEDS: Docusate Sodium 100 MG CAPSULE PO (20:18)
[2022-07-01 03:33] VITALS: BP 149/70; PULSE 96; RESP 18; TEMP 36.8; O2SAT 96
[2022-07-01] MEDS: oxyCODONE HCl Immed Release 5 MG TABLET PO ×3 (05:47→18:11)
[2022-07-01] MEDS: Acetaminophen 325 MG TABLET 650 MG PO ×2 (05:48→18:11)
[2022-07-01] MEDS: Lactated Ringers 1,000 ML 100 ML IVCONT (05:48)
[2022-07-01 06:16] LABS: MANUAL DIFF FLAG NO
[2022-07-01 06:20] LABS: Basophils Percent Auto 0.5 % (0-2); Eosinophils Absolute Auto 0.1 X10*3/uL (0.0-0.4); Eosinophils Percent Auto 1.4 % (0-4); Hematocrit 35.8 % (37.0-47.0); Hemoglobin 11.9 g/dl (12.0-16.0); Imm Gran Abs Auto 0.03 X10*3/uL (0.00-0.03); Imm Gran Pct Auto 0.3 % (0.0-0.4); Lymphocytes Absolute Auto 2.3 X10*3/uL (1.2-4.9); Lymphocytes Percent Auto 26.5 % (20-40); Mean Corpuscular HGB Conc 33.2 g/dl (31.0-35.0); Mean Corpuscular Hemoglobin 28.5 pg (27.0-33.0); Mean Corpuscular Volume 85.6 fL (80.0-98.0); Mean Platelet Volume 10.4 fL (9.4-12.3); Monocytes Percent Auto 11.8 % (2-11); Neutrophils Absolute Auto 5.2 x10*3/uL (2.0-8.3); Neutrophils Percent Auto 59.5 % (45-73); Platelet Count 168 X10*3/uL (160-400); Red Blood Count 4.18 X10*6/uL (4.20-5.50); Red Cell Distribution Width 13.1 % (11.0-16.0); White Blood Count 8.8 X10*3/uL (4.8-10.8)
[2022-07-01 07:01] VITALS: BP 125/60; PULSE 98; RESP 16; TEMP 36.6; O2SAT 93
[2022-07-01] MEDS: Docusate Sodium 100 MG CAPSULE PO ×2 (07:27→20:51)
[2022-07-01] MEDS: Losartan Potassium 50 MG TABLET PO (07:27)
[2022-07-01] MEDS: Aspirin 325 MG TABLET PO ×2 (07:28→20:50)
[2022-07-01] MEDS: Celecoxib 200 MG CAPSULE PO ×2 (07:28→20:51)
[2022-07-01] MEDS: Loratadine 10 MG TABLET PO (07:28)
[2022-07-01] MEDS: amLODIPine Besylate 5 MG TABLET PO (07:28)
[2022-07-01] MEDS: Pravastatin Sodium 10 MG TABLET PO (07:28)
[2022-07-01] MEDS: glipiZIDE 5 MG TABLET PO (07:28)
[2022-07-01] MEDS: oxyCODONE HCl ER 10 MG TAB.ER.12H PO ×2 (07:29→20:50)
[2022-07-01] MEDS: metFORMIN HCl 500 MG TABLET PO ×2 (07:29→20:51)
[2022-07-01] MEDS: Cholecalciferol (Vitamin D3) 25 MCG TABLET PO (07:29)
[2022-07-01 07:48] LABS: Anion Gap 19 (12-20)
[2022-07-01 07:52] LABS: Blood Urea Nitrogen 8 mg/dL (9-16); Calcium 9.2 mg/dL (8.4-10.2); Carbon Dioxide 19 mmol/L (22-29); Chloride 102 mmol/L (96-108); Creatinine Clr Calc Pharmacy 54.1; Estimated Glomerular Filt Rate > 60; Glucose Fasting 136 mg/dL (60-99); Potassium 4.6 mmol/L (3.3-5.1); Sodium 135 mmol/L (135-145)
--- NOTE | 2022-07-01 10:06 | PM.PNORT ---
Subjective Subjective Date of Service: 07/01/22 Interval history: POD1 s/p LTKA. Patient is up and ambulating with physical therapy. Pain is managed. No overnight events. No additional complaints. Physical Exam Vital Signs: Vital Signs: Last Vital Signs Temp 97.9 F 07/01/22 07:01 Pulse 98 07/01/22 07:01 Resp 16 07/01/22 07:01 BP 125/60 07/01/22 07:01 Pulse Ox 93 07/01/22 07:01 O2 Del Method Room Air 07/01/22 07:01 BMI result Body Mass Index 27.1 Const: General: cooperative, healthy appearing and no acute distress Resp: Effort & Inspection: normal respiratory effort and able to speak in complete sentences Cardio: Rate: regular rate Peripheral pulses: Peripheral pulses 2+ throughout GI: Palpation (GI): Soft to palpation Skin: Lesions: no lesions Rashes: no rashes Extrem: Other: Aquacel dressing is c/d/i. NVI. Procedures Date of Service Date of Service: 07/01/22 Progress Note: A&P Assessment and plan (1) Status post total knee replacement, left: Status: Acute Plan Continue pain mgmnt Begin ASA for dvt ppx begin PT for LTKA Dispo planning-Pending PT eval, pain mgmnt Time Spent With Patient Time: Total time managing care of this patient today ____ minutes. Quality Stroke Does the patient have a stroke diagnosis?: No VTE Prior VTE?: No VTE Risk Level:: Medical - moderate - high VTE Device Contraindication: N/A - Device Ordered VTE Drug Contraindication: N/A - Med Ordered
--- NOTE | 2022-07-01 10:59 | HO.POSTANES ---
Post Anesthesia Evaluation Post Anesthesia Evaluation Vital Signs: Vital Signs Temp Pulse Resp BP Pulse Ox O2 Del Method 07/01/22 07:01 97.9 F 98 16 125/60 93 Room Air 07/01/22 03:33 98.3 F 96 18 149/70 H 96 Room Air 06/30/22 23:47 99.5 F 105 H 16 149/70 H 95 Room Air Anesthesia: Spinal and Nerve Block Mental Status: Awake Pain Control: Satisfactory Nausea/Vomiting: None Hydration: Adequate Anesthesia-Related Issues: No Anes. Related Issues
--- NOTE | 2022-07-01 11:19 | MHC.CM.PN ---
IMM DELIVERED PT LIVES WITH DAUGHTER AND FAMILY BUT IN A MOTEL RM AND UPSTAIRS APT. INDEPENDENT AT BASELINE WITH CANE USE OCCASIONALLY. +HCP PER DAUGHTER, COPY REQUESTED. +C[place] VAX X4 [place] DR[place] [facility] [place]: PT RECOMMENDS HOME WITH SERVICES. NEW REFERRAL PLACED TO [facility]. PT/FAMILY REQUEST BLS TRANSPORT. CM WILL CONTINUE TO FOLLOW FOR PLAN.
[2022-07-01 11:33] VITALS: BP 131/61; PULSE 110; RESP 18; TEMP 36.6; O2SAT 93
[2022-07-01] MEDS: 0.9 % Sodium Chloride Flush 3 ML SYRINGE IVFLUSH ×2 (15:13→23:25)
[2022-07-01 15:24] VITALS: BP 143/71; PULSE 100; RESP 18; TEMP 38.2; O2SAT 93
--- NOTE | 2022-07-01 15:40 | P.BOP_ITS ---
Brief Operative Note Date of Service: 06/30/22 Pre-op diagnosis: Date of Service: 06/30/22 Pre-op diagnosis: Left knee OA Post-op diagnosis: same Procedure: Left TKA Implants: [place] Triathlon press fit tibia and cemented PS femur with 12PS insert and 29a press fit patella Surgeon: Gen Kay MD Anesthesia: GETA Was an Napper Runner used for this Procedure?: No Napper Runner: Donna Santos Estimated blood loss (mL): 150 IV fluids (mL): 1,000 Pathology: other Condition: stable Disposition: PACU Procedure in detail: The patient was brought to the operating room and prepped and draped in standard sterile fashion. A time-out was called to identify proper site proper procedure proper surgeon and IV antibiotics were administered. 1 g of IV tranexamic acid was administered. I began by making a midline incision to the retinaculum and performed a medial parapatellar arthrotomy. The patella was translated laterally and the knee was flexed up. There was tricompartmental severe OA . I performed a small medial peel and resected the infrapatellar fat pad. Bypro's line was then used to drill my intramedullary femoral guide and my distal femur cut of 10 mm was made in 5 degrees of valgus while protecting the soft tissues. I then measured a # 1 femur and placed my cutting guide and made my anterior posterior and chamfer cuts protecting the soft tissues at all times. I then made a box cut and removed the PCL. Once I was satisfied with my cuts I turned my attention to the tibia. I removed the meniscus medially and laterally and , using an external cutting guide, in line with the tibial crest and the third ray, I made my distal tibial cut in 0 deg slope of while protecting the posterior soft tissues at all times. An extension block was used to confirm appropriate amount of bony resection. I then sized a #1 tibia and once I was satisfied that there was complete tibial coverage I placed my trial and with the trial femur in place took the knee through range of motion. I was satisfied with the extension and flexion as well as the stability and balance at 0, 30 and 90 degrees. I then turned my attention to the patella where I removed 1 cm from the undersurface of the patella and then trialed a 29a patellar button. Again the knee was taken through range of motion I was satisfied with the tracking. I then returned to the femur and drilled my femoral lug holes and prepared the tibia. A femoral bone plug was placed and the knee was irrigated copiously. I then press fit the patella, tibia and femur in standard fashion. The femoral trial was not stable so I elected to cement this in place. Standard cementation techniques were used and the femur was cemented in palce while applying axial compression. I trialed different inserts until I selected a #12ps insert. The final insert was placed and a 3 minutes iodine soak with local TXA was performed. A Werewolf cautery wand was used to maintain hemostasis over the capsule and meniscal beds, the gutters and peripatellar soft tissues. The knee was then closed with a running Quill suture, a 3 0 Vicryl and jenn on the skin. Patient was then placed in sterile dressing and brought to recovery room in stable condition there were no known complications. Surgeon: Gen Kay MD Was an Napper Runner used for this Procedure?: No Estimated blood loss (mL): 200
[2022-07-01 19:43] VITALS: BP 130/59; PULSE 120; RESP 19; TEMP 37.2; O2SAT 97
[2022-07-01 21:15] VITALS: PULSE 96
[2022-07-02 00:06] VITALS: BP 116/58; PULSE 99; RESP 18; TEMP 36.6; O2SAT 95
[2022-07-02] MEDS: oxyCODONE HCl Immed Release 5 MG TABLET PO ×2 (03:11→07:09)
[2022-07-02 04:07] VITALS: BP 130/57; PULSE 96; RESP 18; TEMP 36.7; O2SAT 96
[2022-07-02 06:03] LABS: MANUAL DIFF FLAG NO
[2022-07-02 06:08] LABS: Basophils Percent Auto 0.4 % (0-2); Eosinophils Absolute Auto 0.1 X10*3/uL (0.0-0.4); Eosinophils Percent Auto 1.5 % (0-4); Hemoglobin 10.9 g/dl (12.0-16.0); Imm Gran Abs Auto 0.04 X10*3/uL (0.00-0.03); Imm Gran Pct Auto 0.4 % (0.0-0.4); Lymphocytes Absolute Auto 2.1 X10*3/uL (1.2-4.9); Mean Corpuscular Hemoglobin 27.7 pg (27.0-33.0); Mean Corpuscular Volume 83.8 fL (80.0-98.0); Mean Platelet Volume 9.2 fL (9.4-12.3); Monocytes Absolute Auto 1.2 X10*3/uL (0.1-1.2); Monocytes Percent Auto 12.4 % (2-11); Neutrophils Absolute Auto 5.9 x10*3/uL (2.0-8.3); Neutrophils Percent Auto 63.3 % (45-73); Platelet Count 202 X10*3/uL (160-400); Red Blood Count 3.94 X10*6/uL (4.20-5.50); Red Cell Distribution Width 13.1 % (11.0-16.0); White Blood Count 9.3 X10*3/uL (4.8-10.8)
[2022-07-02 06:26] LABS: Anion Gap 12 (12-20); Blood Urea Nitrogen 13 mg/dL (9-16); Calcium 8.8 mg/dL (8.4-10.2); Carbon Dioxide 26 mmol/L (22-29); Chloride 101 mmol/L (96-108); Estimated Glomerular Filt Rate > 60; Glucose Fasting 149 mg/dL (60-99); Potassium 4.3 mmol/L (3.3-5.1); Sodium 135 mmol/L (135-145)
[2022-07-02 07:09] VITALS: BP 131/73; PULSE 104; RESP 18; TEMP 37.2; O2SAT 96
[2022-07-02] MEDS: 0.9 % Sodium Chloride Flush 3 ML SYRINGE IVFLUSH (07:09)
[2022-07-02] MEDS: Loratadine 10 MG TABLET PO (07:09)
[2022-07-02] MEDS: Celecoxib 200 MG CAPSULE PO (07:09)
[2022-07-02] MEDS: Aspirin 325 MG TABLET PO (07:09)
[2022-07-02] MEDS: oxyCODONE HCl ER 10 MG TAB.ER.12H PO (07:09)
[2022-07-02] MEDS: glipiZIDE 5 MG TABLET PO (07:10)
[2022-07-02] MEDS: Cholecalciferol (Vitamin D3) 25 MCG TABLET PO (07:10)
[2022-07-02] MEDS: Losartan Potassium 50 MG TABLET PO (07:10)
[2022-07-02] MEDS: amLODIPine Besylate 5 MG TABLET PO (07:10)
[2022-07-02] MEDS: Pravastatin Sodium 10 MG TABLET PO (07:10)
[2022-07-02] MEDS: Docusate Sodium 100 MG CAPSULE PO (07:10)
[2022-07-02] MEDS: metFORMIN HCl 500 MG TABLET PO (07:10)
--- NOTE | 2022-07-02 08:46 | MHC.CM.PN ---
DP: PT HAS BEEN MEDICALLY CLEARED FOR DC HOME WITH NEW [facility] FOR HOME P.Ad RN AWARE. DAUGHTER UPDATED. [facility] NOTIFIED OF DC. BLS TRANSPORT BOOKED FOR 10:30 AM
[2022-07-02 09:00] VITALS: BP 131/73; PULSE 104; O2SAT 96
--- NOTE | 2022-07-02 09:04 | P.PNIM_ITS ---
Subjective Subjective Date of Service: 07/02/22 Interval History: f/u on med consult, doing well post op other some pain Physical Exam Vital Signs: Vital Signs: Last Vital Signs Temp 98.9 F 07/02/22 07:09 Pulse 104 H 07/02/22 07:09 Resp 18 07/02/22 07:09 BP 131/73 07/02/22 07:09 Pulse Ox 96 07/02/22 07:09 O2 Del Method Room Air 07/02/22 07:09 BMI result Body Mass Index 27.1 Const: Other: General: AO X 3, no acute distress Resp: no distress Skin: No rash, wound dressing intact Neuro: motor grossly intact Psych: appropriate affect Objective Data Active Medications Acetaminophen (Acetaminophen 325 Mg Tablet) 650 mg PO Q6H PRN PRN Reason: Pain, Mild (Pain Scale 1-3) Last Admin: 07/01/22 18:11 Dose: 650 mg Documented By: DENISE Amlodipine Besylate (Amlodipine Besylate 5 Mg Tablet) 5 mg PO DAILY [facility]; Protoc ol Last Admin: 07/02/22 07:10 Dose: 5 mg Documented By: DANETTE Aspirin (Aspirin 325 Mg Tablet) 325 mg PO BID [facility] Last Admin: 07/02/22 07:09 Dose: 325 mg Documented By: DANETTE Celecoxib (Celecoxib 200 Mg Capsule) 200 mg PO BID [facility] Last Admin: 07/02/22 07:09 Dose: 200 mg Documented By: DANETTE Docusate Sodium (Docusate Sodium 100 Mg Capsule) 100 mg PO BID [facility] Last Admin: 07/02/22 07:10 Dose: 100 mg Documented By: DANETTE Glipizide (Glipizide 5 Mg Tablet) 5 mg PO DAILY [facility] Last Admin: 07/02/22 07:10 Dose: 5 mg Documented By: DANETTE Hydromorphone HCl (Hydromorphone Hcl 0.5 Mg/0.5 Ml Syringe) 0.25 mg IVPUSH Q4H PRN; Protocol PRN Reason: Pain, Severe (Pain Scale 7-10) Last Admin: 06/30/22 20:18 Dose: 0.25 mg Documented By: PAM Loratadine (Loratadine 10 Mg Tablet) 10 mg PO DAILY [facility] Last Admin: 07/02/22 07:09 Dose: 10 mg Documented By: DANETTE Losartan Potassium (Losartan Potassium 50 Mg Tablet) 50 mg PO DAILY [facility]; Protocol Last Admin: 07/02/22 07:10 Dose: 50 mg Documented By: DANETTE Metformin HCl (Metformin Hcl 500 Mg Tablet) 500 mg PO BID [facility] Last Admin: 07/02/22 07:10 Dose: 500 mg Documented By: DANETTE Ondansetron HCl (Ondansetron Hcl 4 Mg/2 Ml Vial) 4 mg IVPUSH Q8H PRN PRN Reason: Nausea and Vomiting Oxycodone HCl (Oxycodone Hcl Immed Release 5 Mg Tablet) 5 mg PO Q4H PRN PRN Reason: Pain, Moderate (Pain Scale 4-6 Last Admin: 07/02/22 07:09 Dose: 5 mg Documented By: DANETTE Oxycodone HCl (Oxycodone Hcl Er 10 Mg Tab.Er.12h) 10 mg PO BID [facility] Last Admin: 07/02/22 07:09 Dose: 10 mg Documented By: DANETTE Pravastatin Sodium (Pravastatin Sodium 10 Mg Tablet) 10 mg PO DAILY [facility] Last Admin: 07/02/22 07:10 Dose: 10 mg Documented By: DANETTE Sodium Chloride (0.9 % Sodium Chloride Flush 3 Ml Syringe) 3 ml IVFLUSH QSHIFT [facility] Last Admin: 07/02/22 07:09 Dose: 3 ml Documented By: DANETTE Vitamin D (Cholecalciferol (Vitamin D3) 25 Mcg Tablet) 25 mcg PO DAILY [facility] Last Admin: 07/02/22 07:10 Dose: 25 mcg Documented By: DANETTE Labs 07/02/22 05:25 07/02/22 05:25 Labs: Laboratory Results - last 24 hr 07/02/22 07/02/22 05:25 05:25 MCV 83.8 MCH 27.7 MCHC 33.0 RDW 13.1 Plt Count 202 MPV 9.2 L Immature Gran % (Auto) 0.4 Neut % (Auto) 63.3 Lymph % (Auto) 22.0 Wirt % (Auto) 12.4 H Eos % (Auto) 1.5 Baso % (Auto) 0.4 Lymph # (Auto) 2.1 Wirt # (Auto) 1.2 Eos # (Auto) 0.1 Baso # (Auto) 0.0 Abs Immat Gran (auto) 0.04 H Absolute Neuts (auto) 5.9 Absolute Nucleated RBC 0.000 Nucleated RBC % (auto) 0.0 Anion Gap 12 Estim Creat Clear Calc 44.0 Estimated GFR > 60 Fasting Glucose 149 H Calcium 8.8 Assessment and Plan (1) HTN (hypertension): Status: Acute (2) Type 2 diabetes mellitus with hyperglycemia: Status: Acute Plan 77 year old female with history of iron deficiency anemia, vtiamin b12 deficiency, vegetarian diet, noninsulin dependent type 2 diabetes, diabetic polyneuropathy, and hypertension admitted to orthopedic surgery for management of osteoarthritis left knee s/p TKA with consult placed to hospitalist service for medical management. #Osteoarthritis left knee s/p Left TKA 06/30 -plan per orthopedic surgery # [id number] type 2 diabetes- without hyperglycemia -POC glucose -Diabetic diet -resume home meds upon discharge #HTN- reasonably controlled -resume home meds upon discharge #Diabetic polyneuropathy -continue gabapentin medically ok to discharge, singing off Time Spent With Patient Time: Total time managing care of this patient today ____ minutes. Quality Stroke Does the patient have a stroke diagnosis?: No VTE Prior VTE?: No VTE Risk Level:: Medical - moderate - high VTE Device Contraindication: N/A - Device Ordered VTE Drug Contraindication: N/A - Med Ordered
--- NOTE | 2022-07-02 10:00 | PM.DS ---
DS: Providers Provider Date of Service: 07/02/22 Date of admission: 06/30/22 06:39 Primary care physician: Johnathan Mcginnis MD Consults: 06/30/22 11:05 Consult to Hospitalist Routine Comment: Consulting Provider: Hospitalist Reason For Exam: routine medical management DS: Diagnosis Discharge Diagnosis (1) Status post total knee replacement, left: Status: Acute DS: Summary Hospital Course Hospital Course: The patient underwent a successful Left total knee arthroplasty on 06/30/22, was transferred to PACU and then to the floor to recover. During their stay, their vitals were stable, afebrile at 98.9. Labs were unremarkable, H/H10.9/33.0 . POD 1 he was started on ASA 325mg tabs po bid for DVT ppx, they also received Physical Therapy services twice a day. Physical therapy should include gait training, ROM to tolerance and quad strength. He is WBAT. Prior to discharge, his dressing was changed, incision clean dry and intact, new Aquacel dressing applied. The Aquacel dressing shoulder remain intact and dry at all times. Any concerns with the dressing, please contact orthopedic office. No showering. The plan is to be discharged home with vna services. Time Spent with Patient Time attestation: Total time managing care of this patient today ____ minutes. Discharge coordination time: Less than 30 minutes Quality: Safe Use of Opioids Does Pt have an Active Cancer Diagnosis on the Problem List?: No Quality: Stroke Does the patient have a stroke diagnosis?: No Physical Exam Vital Signs: Vital Signs: Last Vital Signs Temp 98.9 F 07/02/22 07:09 Pulse 104 H 07/02/22 09:00 Resp 18 07/02/22 07:09 BP 131/73 07/02/22 09:00 Pulse Ox 96 07/02/22 09:00 O2 Del Method Room Air 07/02/22 07:09 BMI result Body Mass Index 27.1 Const: General: cooperative, healthy appearing and no acute distress Resp: Effort & Inspection: normal respiratory effort and able to speak in complete sentences Cardio: Rate: regular rate Peripheral pulses: Peripheral pulses 2+ throughout GI: Palpation (GI): Soft to palpation Skin: Lesions: no lesions Rashes: no rashes Extrem: Other: Aquacel dressing is c/d/i. NVI. DS: Data Data Completed and Pending Pending studies at discharge: Pending at discharge 06/30/22 09:25 Surgical [PTH] Routine Labs on day of discharge: Laboratory Results - last 24 hr 07/02/22 07/02/22 05:25 05:25 WBC 9.3 RBC 3.94 L Hgb 10.9 L Hct 33.0 L MCV 83.8 MCH 27.7 MCHC 33.0 RDW 13.1 Plt Count 202 MPV 9.2 L Immature Gran % (Auto) 0.4 Neut % (Auto) 63.3 Lymph % (Auto) 22.0 [place] % (Auto) 12.4 H Eos % (Auto) 1.5 Baso % (Auto) 0.4 Lymph # (Auto) 2.1 [place] # (Auto) 1.2 Eos # (Auto) 0.1 Baso # (Auto) 0.0 Abs Immat Gran (auto) 0.04 H Absolute Neuts (auto) 5.9 Absolute Nucleated RBC 0.000 Nucleated RBC % (auto) 0.0 Sodium 135 Potassium 4.3 Chloride 101 Carbon Dioxide 26 Anion Gap 12 BUN 13 Creatinine 0.80 Estim Creat Clear Calc 44.0 Estimated GFR > 60 Fasting Glucose 149 H Calcium 8.8 Discharge Plan Discharge Anticipated Discharge Date/Time: 07/02/22 08:25 Patient Disposition: Home Health Service Discharge Diagnosis: LT TKA Referrals: Jaelyn MACHADO [Outside] - 1 Week ([facility] HOME [facility]ICAL [facility]- A THERAPIST WILL CONTACT YOU TO SET UP FIRST VISIT.) Donna Santos PA-C [Physician Ultrasound Technol] - 2 Weeks (07/15/22 2:15 [facility] [place] [facility] Surgeons Donna Santos PA-C) Discharge Medications: New celecoxib 200 mg Capsule 200 mg PO BID 30 Days Qty: 60 0RF acetaminophen 325 mg Tablet 650 mg PO Q6H PRN (Reason: Pain, Mild (Pain Scale 1-3)) 30 Days Qty: 240 0RF aspirin 325 mg Tablet 325 mg PO BID 42 Days Qty: 84 0RF oxycodone 5 mg Tablet 5 mg PO Q4H PRN (Reason: Pain, Moderate (Pain Scale 4-6) 7 Days Qty: 42 0RF Rx Instructions: Partial Fill upon patient request. Continued (DME) lancets [OneTouch UltraSoft Lancets] Misc See Rx Instructions .Route Qty: 100 3RF Rx Instructions: As directed check BS QD losartan 50 mg tablet 50 mg PO DAILY Qty: 90 2RF metformin 500 mg tablet 500 mg PO BID Qty: 180 2RF (DME) blood sugar diagnostic Strip See Rx Instructions .ROUTE .MEDSUPPLY Qty: 100 3RF Rx Instructions: As directed check the blood sugar once a day amlodipine 5 mg tablet 5 mg PO DAILY 90 Days Qty: 90 3RF pravastatin 10 mg tablet 10 mg PO DAILY Qty: 90 3RF cholecalciferol (vitamin D3) 25 mcg (1,000 unit) tablet 25 mcg PO DAILY glimepiride 2 mg tablet 2 mg PO QAM Qty: 90 2RF (DME) lancets [OneTouch Delica Lancets] 33 gauge misc See Rx Instructions .ROUTE .MEDSUPPLY Qty: 100 3RF Rx Instructions: As directed check the blood sugar q.day loratadine [Allergy Relief (loratadine)] 10 mg tablet 10 mg PO DAILY Discontinued acetaminophen [Tylenol Arthritis Pain] 650 mg tablet extended release 650 mg PO Q8H PRN (Reason: pain) 90 Days Qty: 270 3RF Discharge Orders: Discharge Order (Routine); Ordered 07/02/22 Ordered By: Ruthann Carter Diet: Regular diet Activity on Discharge: Use cane or walker Stand Alone Forms: Patient Portal Discharge page Care Plan Goals: Restore function of joint Health Concerns: none Plan of Treatment: Physical Therapy Pain management DVT prophylaxis Assessment: Physical Therapy for Total knee arthroplasty: WBAT, gait training, ROM 0-12, quad strength Limit stair climbing No showering, no tub bath-keep dressing clean, dry and intact No driving x6 weeks Continue Aspirin twice a day x 6 weeks Follow up with [facility] [place] Orthopedics in 2 weeks: 07/15/22 2:15 [facility] [place] Orthopedic SurgeonsDonna Santos PA-C --you will also have your first out patient PT eval on the day of your post op appt-so please plan on being in the office that day for an extended period of time.
--- NOTE | 2022-07-02 10:04 | W.MHC.F2F ---
Service Date Service Date: 07/02/22 Encounter Date of encounter: 07/02/22 Reasons for Services Signs and symptoms assessed: left knee pain , swelling, weakness, difficulty with ambulation. Reason for physical therapy: home safety and mobility, therapeutic exercises, restore joint function, gait/transfer training, ADL training and energy conservation Reason for occupational therapy: home safety and mobility, therapeutic exercises, restore joint function, gait/transfer training, ADL training and energy conservation MD Overseeing Care: Gen Kay Homebound: Leaving the home is medically contraindicated at this time without the asist of a device and/or another person due th the listed conditions above and below. Reason homebound: unsteady gait / fall risk, pain with ambulation, poor balance / fall risk and unable to drive Homebound supporting statement: Pt. is considered home bound due to recent surgery. Unable to drive, poor balance, poor gait mechanics. Certification: Based on the above findings, I certify that this patient is confined to the home and needs intermittent custodial care, physical therapy and/or speech therapy, or continues to need occupational therapy. The patient is under my care, and I have initiated the establishment of the plan of care. The patient will be followed by a physician who will periodically review the plan of care. Time Spent With Patient Time: Total time managing care of this patient today ____ minutes.
== END 2022-07-02 12:00 | disposition home health service (06) | DRG 470 ==
LOC: HO.SSSA 06:41 → HO.S3 10:27
PROVIDERS: Physician Assistant; Admitting Provider Orthopaedic Surgery; PCP Internal Medicine; Visit Provider Orthopaedic Surgery
PROC: 0SRD0J9 Replacement of Left Knee Joint with Synthetic Substitute, Cemented, Open Approach (ICD-10-PCS; CPT 27447; principal; 2022-06-30 08:40)
DX: M17.12 Unilateral primary osteoarthritis, left knee (principal); G89.18 Other acute postprocedural pain; E11.42 Type 2 diabetes mellitus with diabetic polyneuropathy; I10 Essential (primary) hypertension; Z20.822 Contact with and (suspected) exposure to COVID-19; Z79.82 Long term (current) use of aspirin; Z79.84 Long term (current) use of oral hypoglycemic drugs; Z79.899 Other long term (current) drug therapy
CPT/HCPCS: 36415; 73560; 80048; 82947; 85014; 85018; 85025; 86850; 86900; 86901; 87635; 87640; 87641; 88305; 88311; 97110; 97116; 97162; C1713; C1776; J0131; J0690; J1170; J2370

== ENCOUNTER → 2022-07-15 14:04 | Outpatient (BNVA) | payer OTHER, SELFPAY | PROVIDERS: PCP Internal Medicine; Visit Provider Physician Assistant | DX: M25.562 Pain in left knee (principal); M81.0 Age-related osteoporosis without current pathological fracture; Z96.652 Presence of left artificial knee joint | CPT/HCPCS: 99212 ==

== ENCOUNTER 2022-08-25 10:43 | Outpatient (REF) | payer OTHER, SELFPAY ==
[2022-08-25 10:56] LABS: MANUAL DIFF FLAG NO
[2022-08-25 11:26] LABS: Hematocrit 37.8 % (37.0-47.0); Imm Gran Pct Auto 0.4 % (0.0-0.4); Mean Corpuscular HGB Conc 31.7 g/dl (31.0-35.0); Mean Corpuscular Hemoglobin 26.6 pg (27.0-33.0); Mean Corpuscular Volume 83.8 fL (80.0-98.0); Mean Platelet Volume 8.6 fL (9.4-12.3); Neutrophils Percent Auto 44.9 % (45-73); Platelet Count 329 X10*3/uL (160-400); Red Blood Count 4.51 X10*6/uL (4.20-5.50); Red Cell Distribution Width 12.9 % (11.0-16.0); White Blood Count 7.2 X10*3/uL (4.8-10.8)
[2022-08-25 11:27] LABS: Basophils Absolute Auto 0.1 X10*3/uL (0.0-0.2); Eosinophils Absolute Auto 0.5 X10*3/uL (0.0-0.4); Eosinophils Percent Auto 7.2 % (0-4); Imm Gran Abs Auto 0.03 X10*3/uL (0.00-0.03); Lymphocytes Absolute Auto 2.8 X10*3/uL (1.2-4.9); Lymphocytes Percent Auto 38.3 % (20-40); Monocytes Absolute Auto 0.6 X10*3/uL (0.1-1.2); Monocytes Percent Auto 8.2 % (2-11); Neutrophils Absolute Auto 3.3 x10*3/uL (2.0-8.3); Reticulocyte Percent 1.2 % (0.5-1.8); Reticulocytes Absolute 0.055 X10*6/uL (0.026-0.095)
[2022-08-25 12:15] LABS: Alanine Aminotransferase 15 U/L (0-31); Albumin Level 4.3 g/dL (3.5-5.0); Alkaline Phosphatase 67 U/L (39-117); Anion Gap 16 (12-20); Aspartate Amino Transferase 15 U/L (5-31); Bilirubin Total 0.5 mg/dL (0.0-1.0); Blood Urea Nitrogen 6 mg/dL (9-16); Calcium 10.8 mg/dL (8.4-10.2); Carbon Dioxide 25 mmol/L (22-29); Chloride 104 mmol/L (96-108); Estimated Glomerular Filt Rate > 60; Glucose Random 155 mg/dL (60-115); Iron 59 mcg/dL (30-160); Percent Iron Saturation 14 % (15-50); Potassium 4.7 mmol/L (3.3-5.1); Sodium 140 mmol/L (135-145); Total Iron Binding Capacity 420 mcg/dL (228-428); Total Protein 7.8 g/dL (6.5-8.0); Unsaturated Iron Binding 361 ug/dL
[2022-08-25 12:42] LABS: Ferritin 31 ng/mL (10-250); Folate 12.8 ng/mL (> or = 4.0); Vitamin B12 354 pg/mL (200-900)
== END 2022-08-25 10:44 | disposition home or self-care (01) ==
LOC: HO.LAB 10:43
PROVIDERS: PCP Internal Medicine; Visit Provider Internal Medicine
DX: Z13.9 Encounter for screening, unspecified (principal); D64.9 Anemia, unspecified
CPT/HCPCS: 36415; 80053; 82607; 82728; 82746; 83540; 85025; 85045

== ENCOUNTER 2022-08-31 13:44 | Outpatient (REF) | payer OTHER, SELFPAY ==
--- NOTE | ~2022-08-31 | XR_ITS ---
EXAMINATION: Knee x-ray CLINICAL INFORMATION: Pain COMPARISON: Previous x-ray most recent June 2022 TECHNIQUE: Standing AP view of both knees and lateral and sunrise view of the left knee FINDINGS: Left knee: There is a 3 component knee replacement in satisfactory position. No fracture or dislocation. There is a moderate joint effusion. There is soft tissue swelling over the anterior knee. There is new linear soft tissue calcification projecting over the anterior superior knee. Standing AP view of the right knee demonstrates a 3 component knee replacement. XR/XR knee LT 2V IMPRESSION: Satisfactory appearance of left knee replacement. Moderate joint effusion and anterior soft tissue swelling. New linear soft tissue calcification over the anterior superior knee.
--- NOTE | ~2022-08-31 | XR_ITS ---
EXAMINATION: Knee x-ray CLINICAL INFORMATION: Pain COMPARISON: Previous x-ray most recent June 2022 TECHNIQUE: Standing AP view of both knees and lateral and sunrise view of the left knee FINDINGS: Left knee: There is a 3 component knee replacement in satisfactory position. No fracture or dislocation. There is a moderate joint effusion. There is soft tissue swelling over the anterior knee. There is new linear soft tissue calcification projecting over the anterior superior knee. Standing AP view of the right knee demonstrates a 3 component knee replacement. XR/XR knee standing BI IMPRESSION: Satisfactory appearance of left knee replacement. Moderate joint effusion and anterior soft tissue swelling. New linear soft tissue calcification over the anterior superior knee.
[2022-08-31 16:09] LABS: Creatinine Urine 24.22 mg/dL
[2022-09-01 13:24] LABS: Calcium (PTHI) 10.1 mg/dL (8.6-10.4); PTHI 21 pg/mL (16-77)
[2022-09-02 13:53] LABS: Calcium, Ionized 5.2 mg/dL (4.7-5.5)
== END 2022-08-31 13:45 | disposition home or self-care (01) ==
LOC: HO.LAB 13:44
PROVIDERS: PCP Internal Medicine; Visit Provider Internal Medicine
DX: E11.65 Type 2 diabetes mellitus with hyperglycemia (principal); E83.52 Hypercalcemia; M25.561 Pain in right knee
CPT/HCPCS: 36415; 73560; 73565; 82330; 83970

== ENCOUNTER 2022-09-02 07:21 | Outpatient (REF) | payer OTHER, SELFPAY | END 2022-09-02 07:22 | disposition home or self-care (01) | LOC: HO.HOSX 07:21 | PROVIDERS: Visit Provider Physician Assistant | DX: Z47.1 Aftercare following joint replacement surgery (principal); Z96.652 Presence of left artificial knee joint | CPT/HCPCS: 99212 ==

== ENCOUNTER 2022-12-02 14:57 | Outpatient (AMB) | payer OTHER, SELFPAY ==
--- NOTE | 2022-12-02 15:16 | A.OFFVIS_ITS ---
Intake Intake Visit Reasons: OV-LT TKA 06/30/22 NE Intake Note: Jenna is a 77 year old female who presents today for a post operative follow up s/p left TKA 06/30/22. Allergies beet [BEET] Allergy (Severe, Verified 12/02/22 15:17) THROAT SWELLING carrot [CARROT] Allergy (Severe, Verified 12/02/22 15:17) THROAT SWELLING plantain [PLANTAIN] Allergy (Severe, Verified 12/02/22 15:17) THROAT SWELLING ARI Inhibitors [ARI INHIBITORS] Adverse Reaction (Intermediate, Verified 12/02/22 15:17) Cough simvastatin [SIMVASTATIN] Adverse Reaction (Intermediate, Verified 12/02/22 15:17) Muscle Pain ZULMA FRUIT Allergy (Severe, Uncoded 12/02/22 15:17) THROAT SWELLING SEASONAL ALLERGIES Allergy (Intermediate, Uncoded 12/02/22 15:17) ITCHY EYES, RUNNY NOSE HPI OV-LT TKA 06/30/22 NE HPI Details 5 months s/p left TKA. Doing well overal l but still with occasional pain at night. No fever/chills. Walking regularly PFSH Medical History Age-related osteoporosis without current pathological fracture Cataract Hypercholesterolemia Vitamin D deficiency Knee osteoarthritis Vitamin B12 deficiency Anemia Type 2 diabetes mellitus with hyperglycemia Osteoporosis Patient speaks only a foreign language Arthritis HTN (hypertension) Surgical History History of bilateral cataract extraction H/O colonoscopy History of total knee arthroplasty History of hemorrhoidectomy History of tubal ligation History of appendectomy Family History Father No problems noted. Mother No problems noted. Brother No problems noted. Son No problems noted. Son No problems noted. Daughter No problems noted. Sister No problems noted. Sister No problems noted. Sister No problems noted. 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 0-130 deg motion. Stable arc. No gait antalgia. Assessment & Plan Assessment & Plan (1) Status post total knee replacement, left: Comment: 06/30/2022 Dr. Kay Code(s): Z96.652 - Presence of left artificial knee joint Plan: Doing well s/p left TKA Reassured patient regarding progress and pain. Ordered compounding cream for night pain. f/u as needed Discussed dental prophylaxis Coding Level of Care Code Est Pt Level 3 (48986) Diagnoses Status post total knee replacement, left Z96.652
== END 2022-12-02 15:30 | disposition home or self-care (01) ==
PROVIDERS: PCP Internal Medicine; Visit Provider Orthopaedic Surgery
DX: Z47.1 Aftercare following joint replacement surgery (principal); Z96.652 Presence of left artificial knee joint
CPT/HCPCS: 99213

== ENCOUNTER → 2022-12-02 14:57 | Outpatient (BNVA) | payer OTHER, SELFPAY | PROVIDERS: PCP Internal Medicine; Visit Provider Orthopaedic Surgery | DX: Z47.1 Aftercare following joint replacement surgery (principal); Z96.652 Presence of left artificial knee joint | CPT/HCPCS: 99212 ==

== ENCOUNTER 2022-12-14 09:46 | Outpatient (AMB) | payer OTHER, SELFPAY ==
[2022-12-14 09:49] VITALS: BP 122/68; PULSE 73; O2SAT 98; BMI 26.5
--- NOTE | 2022-12-14 09:49 | MHC.PC.OV ---
Vital Signs 12/14/22 09:49 Height 4 ft 11 in Weight 131 lb BMI 26.5 BP 122/68 Blood Pressure Location Lt brachial Position Sitting Pulse 73 Pulse Source Pulse Oximeter Pulse Oximetry (%) 98 Oxygen Delivery Method Room Air Intake Visit Reasons: Diabetes mellitus Allergies beet [BEET] Allergy (Severe, Verified 12/14/22 09:50) THROAT SWELLING carrot [CARROT] Allergy (Severe, Verified 12/14/22 09:50) THROAT SWELLING plantain [PLANTAIN] Allergy (Severe, Verified 12/14/22 09:50) THROAT SWELLING ARI Inhibitors [ARI INHIBITORS] Adverse Reaction (Intermediate, Verified 12/14/22 09:50) Cough simvastatin [SIMVASTATIN] Adverse Reaction (Intermediate, Verified 12/14/22 09:50) Muscle Pain ZULMA FRUIT Allergy (Severe, Uncoded 12/14/22 09:50) THROAT SWELLING SEASONAL ALLERGIES Allergy (Intermediate, Uncoded 12/14/22 09:50) ITCHY EYES, RUNNY NOSE Medication List - Last Reconciled 12/14/22 by Johnathan Mcginnis MD acetaminophen 650 mg (2 x 325 mg) PO Q6H PRN 30 days amlodipine 5 mg PO DAILY 90 days [Bedside commode [facility] 5feet weight 132lbs] blood sugar diagnostic test 3 times a day after surgery cyanocobalamin (vitamin B-12) 1,000 mcg PO DAILY glimepiride 2 mg PO QAM lancets 3x's per day after surgery lancets (OneTouch Delica Lancets) As directed check the blood sugar q.day losartan 50 mg PO DAILY metformin 500 mg PO BID pravastatin 10 mg PO DAILY Tobacco use date assessed: 08/25/22 Fall risk assessment: No Falls in past year Last assessed Fall Risk: 12/14/22 Dental Screening Dental Screen Date: 12/14/22 Did you have a dental visit in the last 12 months?: Yes Did you have a dental problem in the last 6 months where you did not have access to dental care?: No Was dental information given to patient?: Patient has dentist HPI Diabetes mellitus HPI Details 77-year-old overweight female with controlled diabetes mellitus hypertension hypercholesterolemia last seen in August 2022 patient had left total knee replacement. Patient is here for follow-up [facility] Medical History Age-related osteoporosis without current pathological fracture Cataract Hypercholesterolemia Vitamin D deficiency Knee osteoarthritis Vitamin B12 deficiency Anemia Type 2 diabetes mellitus with hyperglycemia Osteoporosis Patient speaks only a foreign language Arthritis HTN (hypertension) Surgical History History of bilateral cataract extraction H/O colonoscopy History of total knee arthroplasty History of hemorrhoidectomy History of tubal ligation History of appendectomy Family History (Updated 12/14/22 @ 09:51 by Sugey Leon [facility]) Father No problems noted. Mother No problems noted. Brother No problems noted. Son No problems noted. Son No problems noted. Daughter No problems noted. Sister No problems noted. Sister No problems noted. Sister No problems noted. 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 1. Little interest or pleasure in doing things: several days 2. Feeling down, depressed, or hopeless: more than half the days 3. Trouble falling or staying asleep, or sleeping too much: nearly every day 4. Feeling tired or having little energy: not at all 5. Poor appetite or overeating: not at all 6. Feeling bad about yourself - or that you are a failure or have let yourself or your family down: not at all 7. Trouble concentrating on things, such as reading the newspaper or watching television: not at all 8. Moving or speaking so slowly that other people could have noticed. Or the opposite - being so fidgety or restless that you have been moving around a lot more than usual: not at all 9. Thoughts that you would be better off or of hurting yourself in some way: not at all Total score: 6 Depression Screening Interpretation: Negative 11232 - PHQ-9 Billing: Yes Source: Developed by Drs. Stevo Felix, Santy Adhikari and colleagues, with an educational roxana from [employer]. Thrive Questionnaire Date Thrive assessed: 05/18/22 AUDIT C Alcohol Use Questionnaire (AUDIT-C) 1. How often do you have a drink containing alcohol?: Never 2. How many drinks containing alcohol do you have on a typical day when you are drinking?: 1 or 2 3. How often do you have six or more drinks on one occasion?: Never Total Score: 0 Score Reviewed/Action Taken: No JENNY-7 AMB Questionnaire JENNY-7 Date JENNY - 7 assessed: 05/18/22 Source: Developed by Drs. Stevo Felix, Santy Adhikari and colleagues, with an educational roxana from [employer]. Physical exam (Primary Care) Vital Signs: Last Vital Signs Pulse 73 12/14/22 09:49 BP 122/68 12/14/22 09:49 Pulse Ox 98 12/14/22 09:49 Oxygen Delivery Method Room Air 12/14/22 09:49 BMI result Body Mass Index 26.5 Tobacco/Smoking Status: Tobacco use Status Tobacco use date assessed 08/25/22 12/14/22 09:51 Patient Tobacco Use Status Never used Tobacco 12/14/22 09:51 Tobacco use type Cigarette 12/14/22 09:51 e-Cigarette/Vaping Use Never Used 12/14/22 09:51 PHQ-9: PHQ-9 Score PHQ-9: Total score 6 12/14/22 10:05 Depression Screening Interpretation: Negative Thrive Assessment: Date of Thrive Assessment Date Thrive assessed 05/18/22 12/14/22 09:51 Const General: alert; No acute distress Eyes Conjunctivae: conjunctivae normal Resp Auscultation: clear to auscultation bilaterally Cardio Rate: regular rate Rhythm: regular rhythm GI Inspection: Yes normal to inspection Extrem General: Yes normal to inspection and No edema Results AMB Hemoglobin A1c AMB Hemoglobin A1c 6.8 % Last Edit by Sugey Leon CMA on 12/14/22 10:06 Results Reviewed Results Reviewed: Laboratory Last Values Hgb A1c (Clinic) 6.8 % (4.0-6.0) H 12/14/22 09:51 Assessment and Plan Assessment & Plan (1) Anemia: Code(s): D64.9 - Anemia, unspecified Plan: Resolved (2) Type 2 diabetes mellitus with hyperglycemia: Comment: Dr. Trejo Code(s): E11.65 - Type 2 diabetes mellitus with hyperglycemia Qualifiers: Diabetes mellitus salvage determiner insulin use: without chcf use Qualified Code(s): E11.65 - Type 2 diabetes mellitus with hyperglycemia Plan: Decrease the amount of carbohydrate intake, pasta, bread, rice and potatoes are all sugar and that is aside from all the sweet stuff, remember that fruits are good but they are Sweet also. Hemoglobin A1c goal of less than 7.0 patient is on glimepiride 2 mg once a day metformin 500 mg twice a day (3) HTN (hypertension): Code(s): I10 - Essential (primary) hypertension Qualifiers: Hypertension type: essential hypertension Qualified Code(s): I10 - Essential (primary) hypertension Plan: Continue with blood pressure medication. Decrease salt intake and exercise patient on losartan 50 mg once a day and amlodipine 5 mg once a day (4) Hypercholesterolemia: Code(s): E78.00 - Pure hypercholesterolemia, unspecified Plan: Avoid fried foods, chicken skin, eggs, butter margarine, pastries and meat. Be it pork or beef they have a lot of cholesterol LDL goal of less than 100 and triglyceride of less than 150 on pravastatin 10 mg once a day patient's last blood work was May 2022 (5) Status post total knee replacement, left: Comment: 06/30/2022 Dr. Kay Code(s): Z96.652 - Presence of left artificial knee joint Plan: Patient continues to follow-up with physical therapy as well as Orthopedics Orders: Orders AMB Hemoglobin A1c Today Z13.9 - Encounter for screening, unspecified Coding Level of Care Code Est Pt Level 4 (81404) Diagnoses Anemia D64.9 Type 2 diabetes mellitus with hyperglycemia, without long-term current use of insulin E11.65 Diabetes mellitus salvage determiner insulin use: without chcf use Essential hypertension I10 Hypertension type: essential hypertension Hypercholesterolemia E78.00 Status post total knee replacement, left Z96.652
== END 2022-12-14 10:42 | disposition home or self-care (01) ==
PROVIDERS: PCP Internal Medicine; Visit Provider Internal Medicine
DX: E11.65 Type 2 diabetes mellitus with hyperglycemia (principal); I10 Essential (primary) hypertension; D64.9 Anemia, unspecified; E78.00 Pure hypercholesterolemia, unspecified; Z96.652 Presence of left artificial knee joint
CPT/HCPCS: 83036; 99214

== ENCOUNTER 2023-07-23 09:46 | Outpatient (REF) | payer OTHER, SELFPAY ==
[2023-07-23 10:00] LABS: MANUAL DIFF FLAG NO
[2023-07-23 10:16] LABS: Basophils Absolute Auto 0.1 X10*3/uL (0.0-0.2); Basophils Percent Auto 1.2 % (0-2); Eosinophils Absolute Auto 0.5 X10*3/uL (0.0-0.4); Eosinophils Percent Auto 8.4 % (0-4); Hematocrit 39.2 % (37.0-47.0); Hemoglobin 11.8 g/dl (12.0-16.0); Imm Gran Abs Auto 0.02 X10*3/uL (0.00-0.03); Imm Gran Pct Auto 0.3 % (0.0-0.4); Lymphocytes Absolute Auto 2.4 X10*3/uL (1.2-4.9); Lymphocytes Percent Auto 39.6 % (20-40); Mean Corpuscular HGB Conc 30.1 g/dl (31.0-35.0); Mean Corpuscular Hemoglobin 23.5 pg (27.0-33.0); Mean Corpuscular Volume 77.9 fL (80.0-98.0); Mean Platelet Volume 9.7 fL (9.4-12.3); Monocytes Absolute Auto 0.5 X10*3/uL (0.1-1.2); Monocytes Percent Auto 8.3 % (2-11); Neutrophils Absolute Auto 2.6 x10*3/uL (2.0-8.3); Neutrophils Percent Auto 42.2 % (45-73); Platelet Count 346 X10*3/uL (160-400); Red Blood Count 5.03 X10*6/uL (4.20-5.50); White Blood Count 6.1 X10*3/uL (4.8-10.8)
[2023-07-23 11:17] LABS: Creatinine Urine 41.73 mg/dL; Microalbum/Creatinine Ratio Ur 26.3 ug/mg cr (<30)
[2023-07-23 11:22] LABS: Alanine Aminotransferase 16 U/L (0-31); Albumin Level 4.1 g/dL (3.5-5.0); Alkaline Phosphatase 57 U/L (39-117); Anion Gap 17 (12-20); Aspartate Amino Transferase 14 U/L (5-31); Bilirubin Total 0.2 mg/dL (0.0-1.0); Blood Urea Nitrogen 9 mg/dL (9-16); Calcium 10.5 mg/dL (8.4-10.2); Carbon Dioxide 24 mmol/L (22-29); Chloride 103 mmol/L (96-108); Cholesterol 161 mg/dL (<200); Estimated Glomerular Filt Rate > 60; Glucose Random 136 mg/dL (60-115); HDL Cholesterol 40 mg/dL (>40); LDL Cholesterol Calculated 93 mg/dL (<100); Potassium 4.6 mmol/L (3.3-5.1); Sodium 139 mmol/L (135-145); Total Protein 7.9 g/dL (6.5-8.0); Triglycerides 141 mg/dL (<150)
[2023-07-23 11:31] LABS: Estimated Average Glucose 171 mg/dL; Hemoglobin A1c % 7.6 % (<6.0)
[2023-07-23 11:38] LABS: Free T4 (Free Thyroxine) 1.04 ng/dL (0.71-1.85); Thyroid Stimulating Hormone 2.64 uIU/mL (0.32-4.0)
[2023-07-23 11:53] LABS: Folate 8.9 ng/mL (> or = 4.0); Vitamin B12 1839 pg/mL (200-900)
== END 2023-07-23 09:47 | disposition home or self-care (01) ==
LOC: HO.LAB 09:46
PROVIDERS: PCP Internal Medicine; Visit Provider Internal Medicine
DX: E11.65 Type 2 diabetes mellitus with hyperglycemia (principal); E78.00 Pure hypercholesterolemia, unspecified
CPT/HCPCS: 36415; 80053; 80061; 82043; 82306; 82570; 82607; 82746; 83036; 84439; 84443; 85025

== ENCOUNTER 2023-07-28 15:37 | Outpatient (AMB) | payer OTHER, SELFPAY ==
--- NOTE | 2023-07-28 15:40 | MHC.PC.OV ---
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 Accompanied by: daughter in law Allergies beet [BEET] Allergy (Severe, Verified 07/28/23 15:50) THROAT SWELLING carrot [CARROT] Allergy (Severe, Verified 07/28/23 15:50) THROAT SWELLING plantain [PLANTAIN] Allergy (Severe, Verified 07/28/23 15:50) THROAT SWELLING ARI Inhibitors [ARI INHIBITORS] Adverse Reaction (Intermediate, Verified 07/28/23 15:50) Cough simvastatin [SIMVASTATIN] Adverse Reaction (Intermediate, Verified 07/28/23 15:50) Muscle Pain ZULMA FRUIT Allergy (Severe, Uncoded 07/28/23 15:50) THROAT SWELLING SEASONAL ALLERGIES Allergy (Intermediate, Uncoded 07/28/23 15:50) ITCHY EYES, RUNNY NOSE Medication List - Last Reconciled 07/28/23 by Johnathan Mcginnis MD acetaminophen 650 mg (2 x 325 mg) PO Q6H PRN 30 days amlodipine 5 mg PO DAILY 90 days [Bedside commode [address] weight 132lbs] blood sugar diagnostic test 3 times a day after surgery cyanocobalamin (vitamin B-12) 1,000 mcg PO DAILY fexofenadine (Angeline Allergy) 180 mg PO DAILY glimepiride 2 mg PO QAM ibuprofen 600 mg PO Q8H PRN lancets 3x's per day after surgery lancets (OneTouch Delica Lancets) As directed check the blood sugar q.day losartan 50 mg PO DAILY metformin 500 mg PO BID pravastatin 10 mg PO DAILY Tobacco use date assessed: 08/25/22 Dental Screening Dental Screen Date: 12/14/22 HPI DM follow up HPI Details 78-year-old overweight female with diabetes mellitus hypercholesterolemia coming in for follow-up. Last seen in November 2022. Patient is due for colonoscopy mammogram. Bone density last done in August 2021. Patient has been seeing Ophthalmology last seen January 2023 dry eye s PFSH Medical History Age-related osteoporosis without current pathological fracture Cataract Hypercholesterolemia Vitamin D deficiency Knee osteoarthritis Vitamin B12 deficiency Anemia Type 2 diabetes mellitus with hyperglycemia Osteoporosis Patient speaks only a foreign language Arthritis HTN (hypertension) Surgical History History of bilateral cataract extraction H/O colonoscopy History of total knee arthroplasty History of hemorrhoidectomy History of tubal ligation History of appendectomy Family History (Updated 12/14/22 @ 09:51 by Sugey Leon [facility]) Father No problems noted. Mother No problems noted. Brother No problems noted. Son No problems noted. Son No problems noted. Daughter No problems noted. Sister No problems noted. Sister No problems noted. Sister No problems noted. 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 1. Little interest or pleasure in doing things: not at all 2. Feeling down, depressed, or hopeless: not at all 3. Trouble falling or staying asleep, or sleeping too much: not at all 4. Feeling tired or having little energy: not at all 5. Poor appetite or overeating: not at all 6. Feeling bad about yourself - or that you are a failure or have let yourself or your family down: not at all 7. Trouble concentrating on things, such as reading the newspaper or watching television: not at all 8. Moving or speaking so slowly that other people could have noticed. Or the opposite - being so fidgety or restless that you have been moving around a lot more than usual: not at all 9. Thoughts that you would be better off or of hurting yourself in some way: not at all Total score: 0 Depression Screening Interpretation: Negative Depression Screening Done: Yes 42831 - PHQ-9 Billing: Yes Source: Developed by Drs. Stevo Felix, Yaneth Maldonado, Santy Mcintosh and colleagues, with an educational roxana from [employer]. Thrive Questionnaire Date Thrive assessed: 07/28/23 I am a: Patient What is your living situation today?: I have a steady place to live Within the past 12 months, did the food you bought not last and you didn't have the money to get more?: Never true Within the past 12 months, did you worry whether your food would run out before you got money to buy more?: Never true Do you have trouble paying for medicines?: No Do you have trouble getting transportation to medical appointments?: No Do you have trouble paying your heating and electricity bill?: No Do you have trouble taking care of your child, family member or friend?: No Do you have trouble with day-to-day activities such as bathing, preparing meals, shopping, managing finances, etc.?: No Are you currently unemployed and looking for a job?: No Are you interested in more education?: No Please select the resources that you would like help with: None Currently or been in a relationship where the following occur: no concerns reported THRIVE Score: 0 AUDIT C Alcohol Use Questionnaire (AUDIT-C) 1. How often do you have a drink containing alcohol?: Never 2. How many drinks containing alcohol do you have on a typical day when you are drinking?: 1 or 2 3. How often do you have six or more drinks on one occasion?: Never Total Score: 0 Score Reviewed/Action Taken: No JENNY-7 AMB Questionnaire JENNY-7 Date JENNY - 7 assessed: 07/28/23 Feeling nervous, anxious, or on edge: 0 = Not at all Not being able to stop or control worryin = Not at all Worrying too much about different things: 0 = Not at all Trouble relaxin = Not at all Being so restless that it is hard to sit still: 0 = Not at all Becoming easily annoyed or irritable: 0 = Not at all Feeling afraid as if something awful might happen: 0 = Not at all Total JENNY-7 score (0-4 normal; 5-9 mild; 10-14 moderate; 15-21 severe): 0 Source: Developed by Drs. Stevo Felix, Yaneth Maldonado, Santy Mcintosh and colleagues, with an educational roxana from [employer]. JENNY-7 Assessment Billing JENNY-7 Assessment Tool: JENNY-7 Assessment 96832 Physical exam (Primary Care) Vital Signs: Last Vital Signs Pulse 80 07/28/23 15:46 BP 140/70 H 07/28/23 15:46 Pulse Ox 97 07/28/23 15:46 Oxygen Delivery Method Room Air 07/28/23 15:46 BMI result Body Mass Index 26.0 Tobacco/Smoking Status: Tobacco use Status Tobacco use date assessed 08/25/22 07/28/23 15:42 Patient Tobacco Use Status Never used Tobacco 07/28/23 15:42 Tobacco use type Cigarette 07/28/23 15:42 e-Cigarette/Vaping Use Never Used 07/28/23 15:42 PHQ-9: PHQ-9 Score PHQ-9: Total score 0 07/28/23 15:56 Depression Screening Interpretation: Negative Thrive Assessment: Date of Thrive Assessment Date Thrive assessed 07/28/23 07/28/23 15:56 Currently or been in a relationship where the following occur: no concerns reported Const General: alert; No acute distress Eyes Conjunctivae: conjunctivae normal Resp Auscultation: clear to auscultation bilaterally Cardio Rate: regular rate Rhythm: regular rhythm GI Inspection: Yes normal to inspection Extrem General: Yes normal to inspection and No edema Assessment and Plan Assessment & Plan (1) Type 2 diabetes mellitus with hyperglycemia: Comment: Dr. 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 Hemoglobin A1c goal of less than 7.0. On glimepiride 2 mg once a day metformin 500 mg twice a day (2) Iron deficiency anemia: Code(s): D50.9 - Iron deficiency anemia, unspecified Qualifiers: Iron deficiency anemia type: inadequate dietary iron intake Qualified Code(s): D50.8 - Other iron deficiency anemias Plan: Discussed about iron deficiency anemia (3) Hypercholesterolemia: Code(s): E78.00 - Pure hypercholesterolemia, unspecified Plan: Avoid fried foods, chicken skin, eggs, butter margarine, pastries and meat. Be it pork or beef they have a lot of cholesterol LDL goal of less than 100 and triglyceride of less than 150. Medications: New ferrous sulfate 325 mg PO DAILY 90 tabs 2RF D50.8 - Other iron deficiency anemias ascorbate calcium (vitamin C) 500 mg PO DAILY 90 tabs 2RF D50.9 - Iron deficiency anemia, unspecified docusate sodium (Colace) 100 mg PO DAILY 30 caps 12RF hydrocortisone-acetic acid 1-2 % 4 drps otic (ear) left TID 10 mL 0RF blood sugar diagnostic (Birthday GorillaTouch Ultra Test strips) As directed check the blood sugar twice a day 200 ea 3RF E11.65 - Type 2 diabetes mellitus with hyperglycemia Changed From lancets (Birthday GorillaTouch Delica Lancets) As directed check the blood sugar q.day 100 ea 3RF E11.65 - Type 2 diabetes mellitus with hyperglycemia To lancets As directed check the blood sugar twice .day 200 ea 3RF E11.65 - Type 2 diabetes mellitus with hyperglycemia From metformin 500 mg PO BID 180 tabs 2RF E11.65 - Type 2 diabetes mellitus with hyperglycemia To metformin 1,000 mg PO BID 90 days 180 tabs 2RF E11.65 - Type 2 diabetes mellitus with hyperglycemia Coding Level of Care Code New Pt Level 4 (41440) Diagnoses Type 2 diabetes mellitus with hyperglycemia, without long-term current use of insulin E11.65 Diabetes mellitus ferry 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
[2023-07-28 15:46] VITALS: BP 140/70; PULSE 80; O2SAT 97; BMI 26.0
[2023-07-28 16:07] VITALS: BP 120/60
== END 2023-07-28 16:30 | disposition home or self-care (01) ==
PROVIDERS: PCP Internal Medicine; Visit Provider Internal Medicine
DX: E11.65 Type 2 diabetes mellitus with hyperglycemia (principal); D50.8 Other iron deficiency anemias; E78.00 Pure hypercholesterolemia, unspecified
CPT/HCPCS: 99214

== ENCOUNTER 2023-07-29 12:00 | Outpatient (AMB) | payer OTHER, SELFPAY ==
[2023-07-29 12:03] VITALS: BMI 25.9
--- NOTE | 2023-07-29 12:03 | MHC.OFFVIS ---
Vital Signs 07/29/23 12:03 Height 4 ft 11 in Weight 128 lb BMI 25.9 Intake Visit Reasons: OV-LT TKA 06/30/22 NE Intake Note: Jenna is a 77 year old female who presents today for a post operative follow up s/p left TKA 06/30/22. PAtient reports that she is still having some pain, and cracking of the knee. She feels this cracking with extension of the knee. Struggles getting in and out of the car. She complains of muscle pain in the back, which makes it difficult to turn over in bed at night Allergies beet [BEET] Allergy (Severe, Verified 07/28/23 15:50) THROAT SWELLING carrot [CARROT] Allergy (Severe, Verified 07/28/23 15:50) THROAT SWELLING plantain [PLANTAIN] Allergy (Severe, Verified 07/28/23 15:50) THROAT SWELLING ARI Inhibitors [ARI INHIBITORS] Adverse Reaction (Intermediate, Verified 07/28/23 15:50) Cough simvastatin [SIMVASTATIN] Adverse Reaction (Intermediate, Verified 07/28/23 15:50) Muscle Pain ZULMA FRUIT Allergy (Severe, Uncoded 07/28/23 15:50) THROAT SWELLING SEASONAL ALLERGIES Allergy (Intermediate, Uncoded 07/28/23 15:50) ITCHY EYES, RUNNY NOSE HPI HPI OV-LT TKA 06/30/22 NE: Details: Jenna is a 77 year old female who presents today for a post operative follow up s/p left TKA 06/30/22. PAtient reports that she is still having some pain, and cracking of the knee. She feels this cracking with extension of the knee. Struggles getting in and out of the car. She complains of muscle pain in the back, which makes it difficult to turn over in bed at night [facility] Medical History Age-related osteoporosis without current pathological fracture Cataract Hypercholesterolemia Vitamin D deficiency Knee osteoarthritis Vitamin B12 deficiency Anemia Type 2 diabetes mellitus with hyperglycemia Osteoporosis Patient speaks only a foreign language Arthritis HTN (hypertension) Surgical History History of bilateral cataract extraction H/O colonoscopy History of total knee arthroplasty History of hemorrhoidectomy History of tubal ligation History of appendectomy Family History (Updated 12/14/22 @ 09:51 by Sugey Leon [facility]) Father No problems noted. Mother No problems noted. Brother No problems noted. Son No problems noted. Son No problems noted. Daughter No problems noted. Sister No problems noted. Sister No problems noted. Sister No problems noted. 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 Kay Code(s): Z96.652 - Presence of left artificial knee joint Category: Surgical Plan: This is a 78-year-old woman who is 1 year status post left knee replacement. She is overall satisfied but feels that her right knee replacement is faring better than her left. She does have occasional discomfort feels like it occasionally gives way. She does have a trace effusion and I recommend strengthening and activity as tolerated. I reviewed this with her. There is no evidence of infection or other concerning process this was reassuring to her. She can return to see me in a time. Coding Level of Care Code Est Pt Level 3 (04884) Diagnoses Status post total knee replacement, left Z96.652
== END 2023-07-29 12:31 | disposition home or self-care (01) ==
PROVIDERS: PCP Internal Medicine; Visit Provider Orthopaedic Surgery
DX: Z47.89 Encounter for other orthopedic aftercare (principal); Z96.652 Presence of left artificial knee joint
CPT/HCPCS: 99213

== ENCOUNTER → 2023-07-29 12:00 | Outpatient (BNVA) | payer OTHER, SELFPAY | PROVIDERS: PCP Internal Medicine; Visit Provider Orthopaedic Surgery | DX: Z47.1 Aftercare following joint replacement surgery (principal); Z96.652 Presence of left artificial knee joint | CPT/HCPCS: 99212 ==

== ENCOUNTER 2023-12-13 10:07 | Outpatient (REF) | payer OTHER, SELFPAY ==
[2023-12-13 10:24] LABS: MANUAL DIFF FLAG NO
[2023-12-13 10:43] LABS: Basophils Absolute Auto 0.1 X10*3/uL (0.0-0.2); Eosinophils Absolute Auto 0.3 X10*3/uL (0.0-0.4); Eosinophils Percent Auto 5.7 % (0-4); Hematocrit 39.2 % (37.0-47.0); Hemoglobin 12.8 g/dl (12.0-16.0); Imm Gran Abs Auto 0.01 X10*3/uL (0.00-0.03); Imm Gran Pct Auto 0.2 % (0.0-0.4); Immature Retic Fraction 10.9 % (3.0-15.9); Lymphocytes Absolute Auto 2.2 X10*3/uL (1.2-4.9); Lymphocytes Percent Auto 37.7 % (20-40); Mean Corpuscular HGB Conc 32.7 g/dl (31.0-35.0); Mean Corpuscular Hemoglobin 26.8 pg (27.0-33.0); Mean Corpuscular Volume 82.2 fL (80.0-98.0); Mean Platelet Volume 8.6 fL (9.4-12.3); Monocytes Absolute Auto 0.5 X10*3/uL (0.1-1.2); Monocytes Percent Auto 9.2 % (2-11); Neutrophils Absolute Auto 2.7 x10*3/uL (2.0-8.3); Neutrophils Percent Auto 46.2 % (45-73); Platelet Count 266 X10*3/uL (160-400); Red Blood Count 4.77 X10*6/uL (4.20-5.50); Red Cell Distribution Width 15.8 % (11.0-16.0); Retic HGB Equivalent 31.7 pg (30.0-35.0); Reticulocyte Percent 1.3 % (0.5-1.8); Reticulocytes Absolute 0.063 X10*6/uL (0.026-0.095); White Blood Count 5.8 X10*3/uL (4.8-10.8)
[2023-12-13 11:04] LABS: Estimated Average Glucose 131 mg/dL; Hemoglobin A1c % 6.2 % (<6.0)
[2023-12-13 11:27] LABS: Alanine Aminotransferase 14 U/L (0-31); Albumin Level 4.2 g/dL (3.5-5.0); Alkaline Phosphatase 46 U/L (39-117); Anion Gap 11 (12-20); Aspartate Amino Transferase 17 U/L (5-31); Bilirubin Total 0.5 mg/dL (0.0-1.0); Blood Urea Nitrogen 6 mg/dL (9-16); Calcium 9.8 mg/dL (8.4-10.2); Carbon Dioxide 30 mmol/L (22-29); Chloride 103 mmol/L (96-108); Cholesterol 173 mg/dL (<200); Estimated Glomerular Filt Rate > 60; Glucose Random 112 mg/dL (60-115); HDL Cholesterol 40 mg/dL (>40); Iron 99 mcg/dL (30-160); LDL Cholesterol Calculated 101 mg/dL (<100); Percent Iron Saturation 27 % (15-50); Potassium 4.5 mmol/L (3.3-5.1); Sodium 139 mmol/L (135-145); Total Iron Binding Capacity 368 mcg/dL (228-428); Total Protein 7.5 g/dL (6.5-8.0); Triglycerides 160 mg/dL (<150); Unsaturated Iron Binding 269 ug/dL
[2023-12-13 11:28] LABS: Creatinine Urine 43.07 mg/dL
[2023-12-13 11:29] LABS: Ferritin 28 ng/mL (10-250); Free T4 (Free Thyroxine) 1.04 ng/dL (0.71-1.85); Thyroid Stimulating Hormone 1.44 uIU/mL (0.32-4.0); Vitamin D 25-OH Total 42.4 ng/mL (>30)
[2023-12-13 11:45] LABS: Folate 10.7 ng/mL (> or = 4.0); Vitamin B12 588 pg/mL (200-900)
== END 2023-12-13 10:08 | disposition home or self-care (01) ==
LOC: HO.LAB 10:07
PROVIDERS: Visit Provider Internal Medicine
DX: E11.65 Type 2 diabetes mellitus with hyperglycemia (principal); E78.00 Pure hypercholesterolemia, unspecified
CPT/HCPCS: 36415; 80053; 80061; 82306; 82570; 82607; 82728; 82746; 83036; 83540; 84439; 84443; 85025; 85045

== ENCOUNTER 2023-12-16 14:53 | Outpatient (AMB) | payer OTHER, SELFPAY ==
--- NOTE | 2023-12-16 14:58 | A.OFFPC_ITS ---
Vital Signs 12/16/23 14:59 Height 4 ft 11 in Weight 125 lb 8 oz BMI 25.3 BP 130/60 Blood Pressure Location Lt brachial Position Sitting Pulse 78 Pulse Source Pulse Oximeter Pulse Oximetry (%) 97 Oxygen Delivery Method Room Air Intake Visit Reasons: PE Intake Note: Patient is here today for a physical. Pulmonologist Required: No Wallpaper Inspector: Present Accompanied by: Son Allergies beet [BEET] Allergy (Severe, Verified 12/16/23 14:59) THROAT SWELLING carrot [CARROT] Allergy (Severe, Verified 12/16/23 14:59) THROAT SWELLING plantain [PLANTAIN] Allergy (Severe, Verified 12/16/23 14:59) THROAT SWELLING ARI Inhibitors [ARI INHIBITORS] Adverse Reaction (Intermediate, Verified 12/16/23 14:59) Cough simvastatin [SIMVASTATIN] Adverse Reaction (Intermediate, Verified 12/16/23 14:59) Muscle Pain ZULMA FRUIT Allergy (Severe, Uncoded 12/16/23 14:59) THROAT SWELLING SEASONAL ALLERGIES Allergy (Intermediate, Uncoded 12/16/23 14:59) ITCHY EYES, RUNNY NOSE Medication List - Last Reconciled 12/16/23 by Johnathan Mcginnis MD amlodipine 5 mg PO DAILY 90 days ascorbate calcium (vitamin C) 500 mg PO DAILY [Bedside commode [facility] 5feet weight 132lbs] blood sugar diagnostic test 3 times a day after surgery blood sugar diagnostic (OneTouch Ultra Test strips) As directed check the blood sugar twice a day cyanocobalamin (vitamin B-12) 1,000 mcg PO DAILY ferrous sulfate 325 mg PO DAILY glimepiride 2 mg PO QAM lancets 3x's per day after surgery lancets As directed check the blood sugar twice .day losartan 50 mg PO DAILY metformin 1,000 mg PO BID 90 days pravastatin 10 mg PO DAILY Tobacco use date assessed: 12/16/23 Fall risk assessment: No Falls in past year Last assessed Fall Risk: 12/16/23 Dental Screening Dental Screen Date: 12/16/23 Did you have a dental visit in the last 12 months?: Yes Did you have a dental problem in the last 6 months where you did not have access to dental care?: No Was dental information given to patient?: Patient has dentist HPI PE HPI Details 78-year-old female with diabetes mellitu s iron deficiency anemia hypercholesterolemia coming in for physical exam. Last seen in 08/08/2023. Patient's colonoscopy is due, mammogram is due and bone density is due. Review of the notes patient had Orthopedics status post left total knee arthroplasty 06/30/2022 advised physical therapy. [facility] Medical History Age-related osteoporosis without current pathological fracture Cataract Hypercholesterolemia Vitamin D deficiency Knee osteoarthritis Vitamin B12 deficiency Anemia Type 2 diabetes mellitus with hyperglycemia Osteoporosis Patient speaks only a foreign language Arthritis HTN (hypertension) Surgical History History of bilateral cataract extraction H/O colonoscopy History of total knee arthroplasty History of hemorrhoidectomy History of tubal ligation History of appendectomy Family History Father No problems noted. Mother No problems noted. Brother No problems noted. Son No problems noted. Son No problems noted. Daughter No problems noted. Sister No problems noted. Sister No problems noted. Sister No problems noted. 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 1. Little interest or pleasure in doing things: more than half the days 2. Feeling down, depressed, or hopeless: not at all 3. Trouble falling or staying asleep, or sleeping too much: not at all 4. Feeling tired or having little energy: not at all 5. Poor appetite or overeating: not at all 6. Feeling bad about yourself - or that you are a failure or have let yourself or your family down: not at all 7. Trouble concentrating on things, such as reading the newspaper or watching television: not at all 8. Moving or speaking so slowly that other people could have noticed. Or the opposite - being so fidgety or restless that you have been moving around a lot more than usual: not at all 9. Thoughts that you would be better off or of hurting yourself in some way: not at all Total score: 2 Depression Screening Interpretation: Positive Depression Screening Done: Yes Source: Developed by Drs. Stevo Felix, Santy Adhikari and colleagues, with an educational roxana from [employer] Thrive Questionnaire Date Thrive assessed: 07/28/23 JENNY-7 AMB Questionnaire JENNY-7 Date JENNY - 7 assessed: 07/28/23 Source: Developed by Drs. Stevo Felix, Santy Adhikari and colleagues, with an educational roxana from [employer] ([employer]). Review of Systems Const Denies poor appetite and Denies weakness Eyes Denies no additional complaints ENT Reports Normal hearing present, Denies dizziness, Denies nasal congestion, Denies tinnitus and Denies sore throat Card Denies chest pain, Denies syncope, Denies rapid heart rate and Denies dyspnea Resp Denies cough and Denies dyspnea GI Denies change in stool character, Reports constipation, Denies diarrhea, Denies nausea and Denies vomiting Denies urinary frequency, Denies difficulty voiding and Denies dysuria Neuro Reports Normal hearing present, Denies confusion, Denies dizziness, Denies syncope and Denies weakness Psych Denies confusion Physical exam (Primary Care) Vital Signs: Last Vital Signs Pulse 78 12/16/23 14:59 BP 130/60 12/16/23 14:59 Pulse Ox 97 12/16/23 14:59 Oxygen Delivery Method Room Air 12/16/23 14:59 BMI result Body Mass Index 25.3 Tobacco/Smoking Status: Tobacco use Status Tobacco use date assessed 12/16/23 12/16/23 15:05 Patient Tobacco Use Status Never used Tobacco 12/16/23 15:05 Tobacco use type Cigarette 12/16/23 15:05 e-Cigarette/Vaping Use Never Used 12/16/23 15:05 PHQ-9: PHQ-9 Score PHQ-9: Total score 2 12/16/23 15:05 Depression Screening Interpretation: Positive Thrive Assessment: Date of Thrive Assessment Date Thrive assessed 07/28/23 12/16/23 15:05 Const General: No confusion Orientation/consciousness: No confusion HENMT Head: Yes normocephalic Ears: external ears normal and TM's normal bilaterally Face and sinus: Yes normal facial exam Mouth: moist mucous membranes Throat: Yes tonsils normal Eyes Conjunctivae: conjunctivae normal Pupils: Equal, round and reactive pupils present and Pupil accommodation reflex normal Direct Ophthalmoscopy: normal light reflex Neck Neck: No lymphadenopathy Thyroid: Thyroid normal Chest Chest palpation & inspection: normal inspection of the chest Resp Effort & Inspection: normal respiratory effort and no audible wheezes Auscultation: clear to auscultation bilaterally, no crackles, no wheezes and lung sounds not diminished Cardio Rate: regular rate Rhythm: regular rhythm Peripheral pulses: radial pulses present and dorsalis pedis present GI Other: guaiac neg Palpation (GI): no masses Auscultation: normal bowel sounds and normoactive bowel sounds Skin General skin exam: no rashes or lesions noted Rashes: no rashes Neuro General: No confusion Cranial nerves: Yes Equal, round and reactive pupils present and Yes Normal hearing present Cognition (Neuro): normal cognition Gait exam (Neuro): Normal gait present Motor exam (neuro): 5/5 motor strength present throughout Deep tendon reflexes (DTR's): Right brachioradialis reflex intensity grade: 2+, Left brachioradialis reflex intensity grade: 2+, Right patellar reflex intensity grade: 2+ and Left patellar reflex intensity grade: 2+ Extrem General: No edema Assessment and Plan Assessment & Plan (1) Annual physical exam: Code(s): Z00.00 - Encounter for general adult medical examination without abnormal findings Plan: Patient is advised to eat healthy, keep well hydrated, keep active and have adequate sleep. (2) Type 2 diabetes mellitus with hyperglycemia: Comment: Dr. Trejo Code(s): E11.65 - Type 2 diabetes mellitus with hyperglycemia Qualifiers: Diabetes mellitus senior care insulin use: without senior care use Qualified Code(s): E11.65 - Type 2 diabetes mellitus with hyperglycemia Plan: Decrease the amount of carbohydrate intake, pasta, bread, rice and potatoes are all sugar and that is aside from all the sweet stuff, remember that fruits are good but they are Sweet also. Hemoglobin A1c goal of less than 7.0 patient is on glimepiride 2 mg once a day metformin a 1000 mg twice a day (3) Hypercholesterolemia: Code(s): E78.00 - Pure hypercholesterolemia, unspecified Plan: Avoid fried foods, chicken skin, eggs, butter margarine, pastries and meat. Be it pork or beef they have a lot of cholesterol LDL goal of less than 100 and triglyceride of less than 150 on pravastatin 10 mg once a day (4) Osteopenia: Comment: August 2021 Code(s): M85.80 - Other specified disorders of bone density and structure, unspecified site Plan: Reminded about bone density (5) Colon cancer screening: Code(s): Z12.11 - Encounter for screening for malignant neoplasm of colon Plan: Reminded about colonoscopy (6) Breast cancer screening by mammogram: Code(s): Z. - Encounter for screening mammogram for malignant neoplasm of breast Plan: Patient is reminded about mammogram (7) HTN (hypertension): Code(s): I10 - Essential (primary) hypertension Qualifiers: Hypertension type: essential hypertension Qualified Code(s): I10 - Essential (primary) hypertension Plan: Continue with blood pressure medication. Decrease salt intake and exercise on amlodipine 5 mg once a day losartan 50 mg once a day Medications: Refilled pravastatin 10 mg PO DAILY 90 tabs 3RF D64.9 - Anemia, unspecified Coding Level of Care Code Est Pt Prev Care >65y(11424) Diagnoses Annual physical exam Z00.00 Type 2 diabetes mellitus with hyperglycemia, without long-term current use of insulin E11.65 Diabetes mellitus senior care insulin use: without adjunct faculty for medical terminology use Hypercholesterolemia E78.00 Osteopenia M85.80 Colon cancer screening Z12.11 Breast cancer screening by mammogram Z12.31 Essential hypertension I10 Hypertension type: essential hypertension
[2023-12-16 14:59] VITALS: BP 130/60; PULSE 78; O2SAT 97; BMI 25.3
== END 2023-12-16 15:40 | disposition home or self-care (01) ==
PROVIDERS: PCP Internal Medicine; Visit Provider Internal Medicine
DX: Z00.00 Encounter for general adult medical examination without abnormal findings (principal); E11.65 Type 2 diabetes mellitus with hyperglycemia; E78.00 Pure hypercholesterolemia, unspecified; M85.80 Other specified disorders of bone density and structure, unspecified site; Z12.11 Encounter for screening for malignant neoplasm of colon; Z12.31 Encounter for screening mammogram for malignant neoplasm of breast; I10 Essential (primary) hypertension

== ENCOUNTER → 2023-12-16 14:53 | Outpatient (BNVA) | payer OTHER, SELFPAY | PROVIDERS: PCP Internal Medicine; Visit Provider Internal Medicine | DX: Z00.01 Encounter for general adult medical examination with abnormal findings (principal); E11.65 Type 2 diabetes mellitus with hyperglycemia; E78.00 Pure hypercholesterolemia, unspecified; D64.9 Anemia, unspecified; M85.80 Other specified disorders of bone density and structure, unspecified site; I10 Essential (primary) hypertension | CPT/HCPCS: 99397 ==

== ENCOUNTER 2024-04-06 09:58 | Outpatient (AMB) | payer OTHER, SELFPAY ==
[2024-04-06 10:03] VITALS: BP 112/72; PULSE 76; O2SAT 96; BMI 25.9
--- NOTE | 2024-04-06 10:03 | A.OFFPC_ITS ---
Vital Signs 04/06/24 10:03 Height 4 ft 11 in Weight 128 lb BMI 25.9 BP 112/72 Blood Pressure Location Lt brachial Position Sitting Pulse 76 Pulse Source Pulse Oximeter Pulse Oximetry (%) 96 Oxygen Delivery Method Room Air Intake Visit Reasons: DM Allergies beet [BEET] Allergy (Severe, Verified 04/06/24 10:03) THROAT SWELLING carrot [CARROT] Allergy (Severe, Verified 04/06/24 10:03) THROAT SWELLING plantain [PLANTAIN] Allergy (Severe, Verified 04/06/24 10:03) THROAT SWELLING ARI Inhibitors [ARI INHIBITORS] Adverse Reaction (Intermediate, Verified 04/06/24 10:03) Cough simvastatin [SIMVASTATIN] Adverse Reaction (Intermediate, Verified 04/06/24 10:03) Muscle Pain ZULMA FRUIT Allergy (Severe, Uncoded 04/06/24 10:03) THROAT SWELLING SEASONAL ALLERGIES Allergy (Intermediate, Uncoded 04/06/24 10:03) ITCHY EYES, RUNNY NOSE Medication List - Last Reconciled 04/06/24 by Johnathan Mcginnis MD amlodipine 5 mg PO DAILY 90 days ascorbate calcium (vitamin C) 500 mg PO DAILY [Bedside commode [facility] 5feet weight 132lbs] blood sugar diagnostic test 3 times a day after surgery blood sugar diagnostic (Blue[employer]icTouch Ultra Test strips) As directed check the blood sugar twice a day cyanocobalamin (vitamin B-12) 1,000 mcg PO DAILY cyclobenzaprine 5 mg PO BEDTIME PRN ferrous sulfate 325 mg PO DAILY fexofenadine (Angeline Allergy) 180 mg PO DAILY gabapentin 100 mg PO BEDTIME glimepiride 2 mg PO QAM lancets 3x's per day after surgery lancets As directed check the blood sugar twice .day losartan 50 mg PO DAILY metformin 1,000 mg PO BID 90 days pravastatin 10 mg PO DAILY Tobacco use date assessed: 04/06/24 Fall risk assessment: No Falls in past year Last assessed Fall Risk: 04/06/24 Dental Screening Dental Screen Date: 04/06/24 Did you have a dental visit in the last 12 months?: Yes Did you have a dental problem in the last 6 months where you did not have access to dental care?: No Was dental information given to patient?: Patient has dentist HPI DM HPI Details The patient is an 79-year-old female presenting with pain management needs and chronic condition follow-up. She has type 2 diabetes mellitus complicated by neuropathy, evidenced by tingling and numbness in her fingers, particularly at night. Her diabetes management has seen fluctuations in blood glucose levels, noted by an HbA1c of 6.5%. The patient is aware that better co ntrol of blood sugar levels can mitigate neuropathic symptoms. Previously, she was on gabapentin but is not currently taking it. The patient also has hypercholesterolemia, with a concern for elevated LDL cholesterol at 101 mg/dL and triglycerides. Her cholesterol levels were last checked in November. Additionally, she experiences allergic rhinitis, treated with Zyrtec, which causes sleepiness. She was advised that an alternative might be preferable. A skin laceration with no signs of infection was noted, likely due to bumping or scratching, with healing anticipated to be slow due to her diabetes. She complains of tendinopathy related to repetitive use of an iPad. The patient reports generalized muscle pain and stiffness, particularly in the neck, for which she seeks management. She was noted to have ear congestion and was previously advised to use allergy medication. The patient manages family-related responsibilities, including housework and caregiving, which impacts her health behaviors, such as dietary indulgences. [facility] Medical History (Updated 04/06/24 @ 10:29 by Johnathan Mcginnis MD) Iron deficiency anemia Anemia Age-related osteoporosis without current pathological fracture Cataract Hypercholesterolemia Vitamin D deficiency Knee osteoarthritis Vitamin B12 deficiency Type 2 diabetes mellitus with hyperglycemia Osteoporosis Patient speaks only a foreign language Arthritis HTN (hypertension) Surgical History History of bilateral cataract extraction H/O colonoscopy History of total knee arthroplasty History of hemorrhoidectomy History of tubal ligation History of appendectomy Family History Father No problems noted. Mother No problems noted. Brother No problems noted. Son No problems noted. Son No problems noted. Daughter No problems noted. Sister No problems noted. Sister No problems noted. Sister No problems noted. 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 1. Little interest or pleasure in doing things: more than half the days 2. Feeling down, depressed, or hopeless: not at all 3. Trouble falling or staying asleep, or sleeping too much: not at all 4. Feeling tired or having little energy: not at all 5. Poor appetite or overeating: not at all 6. Feeling bad about yourself - or that you are a failure or have let yourself or your family down: not at all 7. Trouble concentrating on things, such as reading the newspaper or watching television: not at all 8. Moving or speaking so slowly that other people could have noticed. Or the opposite - being so fidgety or restless that you have been moving around a lot more than usual: not at all 9. Thoughts that you would be better off or of hurting yourself in some way: not at all Total score: 2 Depression Screening Interpretation: Positive Depression Screening Done: Yes Source: Developed by Drs. Stevo Felix, Yaneth Maldonado, Santy Mcintosh and colleagues, with an educational roxana from [employer]. Thrive Questionnaire Date Thrive assessed: 04/06/24 I am a: Patient What is your living situation today?: I have a steady place to live Within the past 12 months, did the food you bought not last and you didn't have the money to get more?: Never true Within the past 12 months, did you worry whether your food would run out before you got money to buy more?: Never true Do you have trouble paying for medicines?: No Do you have trouble getting transportation to medical appointments?: No Do you have trouble paying your heating and electricity bill?: No Do you have trouble taking care of your child, family member or friend?: No Do you have trouble with day-to-day activities such as bathing, preparing meals, shopping, managing finances, etc.?: No Are you currently unemployed and looking for a job?: No Are you interested in more education?: No Currently or been in a relationship where the following occur: No concerns reported THRIVE Score: 0 AUDIT C Alcohol Use Questionnaire (AUDIT-C) 1. How often do you have a drink containing alcohol?: Never 2. How many drinks containing alcohol do you have on a typical day when you are drinking?: 1 or 2 3. How often do you have six or more drinks on one occasion?: Never Total Score: 0 Score Reviewed/Action Taken: No JENNY-7 AMB Questionnaire JENNY-7 Date JENNY - 7 assessed: 04/06/24 Feeling nervous, anxious, or on edge: 0 = Not at all Not being able to stop or control worryin = Not at all Worrying too much about different things: 0 = Not at all Trouble relaxin = Not at all Being so restless that it is hard to sit still: 0 = Not at all Becoming easily annoyed or irritable: 0 = Not at all Feeling afraid as if something awful might happen: 0 = Not at all Total JENNY-7 score (0-4 normal; 5-9 mild; 10-14 moderate; 15-21 severe): 0 Source: Developed by Drs. Stevo Felix, Yaneth Maldonado, Santy Mcintosh and colleagues, with an educational roxana from [employer]. Physical exam (Primary Care) Vital Signs: Last Vital Signs Pulse 76 04/06/24 10:03 BP 112/72 04/06/24 10:03 Pulse Ox 96 04/06/24 10:03 Oxygen Delivery Method Room Air 04/06/24 10:03 BMI result Body Mass Index 25.9 Tobacco/Smoking Status: Tobacco use Status Tobacco use date assessed 04/06/24 04/06/24 10:05 Patient Tobacco Use Status Never used Tobacco 04/06/24 10:05 Tobacco use type Cigarette 04/06/24 10:05 e-Cigarette/Vaping Use Never Used 04/06/24 10:05 PHQ-9: PHQ-9 Score PHQ-9: Total score 2 04/06/24 10:22 Depression Screening Interpretation: Positive Thrive Assessment: Date of Thrive Assessment Date Thrive assessed 04/06/24 04/06/24 10:05 Currently or been in a relationship where the following occur: No concerns reported Const General: alert; No acute distress Eyes Conjunctivae: conjunctivae normal Resp Auscultation: clear to auscultation bilaterally Cardio Rate: regular rate Rhythm: regular rhythm GI Inspection: Yes normal to inspection Extrem General: Yes normal to inspection and No edema Results AMB Hemoglobin A1c AMB Hemoglobin A1c 6.5 % Last Edit by Sugey Leon CMA on 04/06/24 10 :19 Results Reviewed Results Reviewed: Laboratory Last Values Hgb A1c (Clinic) 6.5 % (4.0-6.0) H 04/06/24 10:05 Coding Level of Care Code Est Pt Level 4 (61472) Complex EM visit Add On G2211 Diagnoses Type 2 diabetes mellitus with hyperglycemia, without long-term current use of insulin E11.65 Diabetes mellitus terminal carman insulin use: without half-way use Essential hypertension I10 Hypertension type: essential hypertension Osteopenia M85.80 Hypercholesterolemia E78.00 Diabetic neuropathy E11.40 Allergic rhinitis J30.9 Assessment & Plan Assessment & Plan (1) Type 2 diabetes mellitus with hyperglycemia: Comment: Dr. Trejo Code(s): E11.65 - Type 2 diabetes mellitus with hyperglycemia Category: Medical Qualifiers: Diabetes mellitus half-way insulin use: without half-way use Qualified Code(s): E11.65 - Type 2 diabetes mellitus with hyperglycemia (2) HTN (hypertension): Code(s): I10 - Essential (primary) hypertension Category: Medical Qualifiers: Hypertension type: essential hypertension Qualified Code(s): I10 - Essential (primary) hypertension (3) Osteopenia: Comment: August 2021 Code(s): M85.80 - Other specified disorders of bone density and structure, unspecified site Category: Medical (4) Hypercholesterolemia: Code(s): E78.00 - Pure hypercholesterolemia, unspecified Category: Medical (5) Diabetic neuropathy: Code(s): E11.40 - Type 2 diabetes mellitus with diabetic neuropathy, unspecified Category: Medical (6) Allergic rhinitis: Code(s): J30.9 - Allergic rhinitis, unspecified Category: Medical Plan - Adjust diabetes management to improve glycemic control and address neuropathy symptoms. Consider reinitiating gabapentin for neuropathic pain if symptoms persist. - Monitor lipid levels; consider dietary modifications or medication adjustments to address hypercholesterolemia. - Change allergic rhinitis management from Zyrtec to Angeline to reduce sedation. Monitor for ongoing symptoms or side effects. - Treat the minor skin laceration conservatively; monitor for signs of infection given delayed healing due to diabetes. - Advise reduction in repetitive activities contributing to tendinopathy; consider physical therapy or other conservative measures. - For muscle pain and stiffness, consider prescribing cyclobenzaprine for intermittent use as a muscle relaxer. - Evaluate ear congestion with possible changes in allergy medication or advice on other symptomatic relief methods. - Reinforce the importance of lifestyle modifications, including dietary adjustments and physical activity, to aid in symptom management and chronic condition control. - Consider referral to a registration representative due to diabetes and previous foot doctor recommendations. - Ensure patient's family is informed of ongoing management strategies and lifestyle adjustments to support her health. - Order blood work for updated HbA1c and lipid profile to reassess current status and therapy effectiveness. Orders: Orders AMB Hemoglobin A1c Today Z13.9 - Encounter for screening, unspecified Lipid Panel 3 Months E78.00 - Pure hypercholesterolemia, unspecified Hemoglobin A1c 3 Months E78.00 - Pure hypercholesterolemia, unspecified Comprehensive Met. Panel 3 Months E78.00 - Pure hypercholesterolemia, unspecified Referrals Podiatry Referral E11.65 - Type 2 diabetes mellitus with hyperglycemia Medications: New fexofenadine (Angeline Allergy) 180 mg PO DAILY 90 tabs 0RF J30.9 - Allergic rhinitis, unspecified cyclobenzaprine 5 mg PO BEDTIME PRN 30 tabs 0RF muscle spasm J30.9 - Allergic rhinitis, unspecified gabapentin 100 mg PO BEDTIME 90 caps 0RF E11.40 - Type 2 diabetes mellitus with diabetic neuropathy, unspecified Refilled ascorbate calcium (vitamin C) 500 mg PO DAILY 90 tabs 2RF D50.9 - Iron deficiency anemia, unspecified ferrous sulfate 325 mg PO DAILY 90 tabs 2RF D50.8 - Other iron deficiency anemias metformin 1,000 mg PO BID 180 tabs 2RF 90 days E11.65 - Type 2 diabetes mellitus with hyperglycemia
== END 2024-04-06 10:53 | disposition home or self-care (01) ==
PROVIDERS: PCP Internal Medicine; Visit Provider Internal Medicine
DX: E11.65 Type 2 diabetes mellitus with hyperglycemia (principal); I10 Essential (primary) hypertension; M85.80 Other specified disorders of bone density and structure, unspecified site; E78.00 Pure hypercholesterolemia, unspecified; E11.40 Type 2 diabetes mellitus with diabetic neuropathy, unspecified; J30.9 Allergic rhinitis, unspecified; Z13.9 Encounter for screening, unspecified

== ENCOUNTER → 2024-04-06 09:58 | Outpatient (BNVA) | payer OTHER, SELFPAY | PROVIDERS: PCP Internal Medicine; Visit Provider Internal Medicine | DX: E11.65 Type 2 diabetes mellitus with hyperglycemia (principal); E78.00 Pure hypercholesterolemia, unspecified; E11.40 Type 2 diabetes mellitus with diabetic neuropathy, unspecified; I10 Essential (primary) hypertension; M85.80 Other specified disorders of bone density and structure, unspecified site; J30.9 Allergic rhinitis, unspecified | CPT/HCPCS: 83036; 99212 ==

== ENCOUNTER 2024-08-07 09:16 | Outpatient (REF) | payer OTHER, SELFPAY ==
--- OUTSIDE RECORDS SUMMARY | 2024-08-07 10:01 | XMS_ITS | Patient Health Record ---
Author Organization [facility] Address [address] [place] [address] Care Team Providers Care Sap Bpc Architect Name Role Phone Johnathan Mcginnis Primary Care Provider Boubacar Black Unavailable [phone] Allergies Allergen (clinical drug ingredient) Drug/Non Drug Allergy documented on EMR Reaction Allergy Type Onset Date Status beet (uncoded) Unknown Allergy Activ e solitario fruit (uncoded) Unknown Allergy Active Plantain plantain (uncoded) Unknown Allergy A ctive Carrot Flavor Unknown Drug Allergy Act eugene Seasonal IC Unknown Drug Allergy Activ e angiotensin-converting enzyme inhibitor (FN) ARI Inhibitors Unknown Drug Allergy Acti ve simvastatin Simvastatin Unknown Drug Allergy Act eugene Reason For Referral No Information Medications Medication SIG (Take, Route, Frequency, Duration) Notes Start Date End Date Status Vitamin C Active Ferrous Sulfate 325 (65 Fe) MG 1 tablet Orally Once a day for 30 day(s) Active Zoledronic Acid Acti ve Sennosides Active Cyanocobalamin Activ e Loratadine Active Aspirin 81 MG 1 tablet Orally Once a day for 30 day(s) Active Extra Depth Diabetic Shoes with 3 Pair Custom heat-molded multi-density innersoles for 1 year Dx: 12/23/2020 Active Glimepiride 2 MG 1 tablet with breakf ast or the first main meal of the day Orally Once a day for 30 day(s) Active Losartan Potassium 50 MG 1 tablet Orally Once a day for 30 day(s) Active Pravastatin Sodium 10 MG 1 tablet Orally Once a day for 30 day(s) Active metFORMIN HCl 500 MG 1 tablet with a freida l Orally Once a day for 30 day(s) Active Social History Alcohol Screen Question Answer Notes Did you have a drink containing alcohol in the p ast year? No Points 0 Interpretation Negative Problems Problem Type SNOMED Code ICD Code Onset Dates Problem Status W/U Status Risk Notes Problem Type 2 diabetes mellitus with diabetic polyneuropathy (E11.42) Active confirmed Encounters Encounter Location Date Provider Diagnosis [facility] [address] [place] [phone] 07/16/2024 Boubacar Allred Plan Of Treatment Pending Test Test Name Order Date X ray : Foot, right 3V 12/23/2020 [id number] SKIN LESIONS, 2 TO 4 12/24/19 21 Next Appt Details Provider Name:Boubacar Allred , 10/15/2024 09:00:00 AM, [address] [address], [place], [address], Insurance Providers Payer Name Payer Address Payer Phone Subscriber Number Group Number Insured Name Patient Relationship to Insured Coverage Start Date Coverage End Date [facility] [address] [place] [phone] [id number] Edgar Malone Self - patient is the insured Medical (General) History Medical History History ICD Code Diabetic Hypertension Hypercholesterolemia Cataracts Osteoporosis Arthritis Anemia Back,Hip,and Knee pain Joint implants/screws Surgical History Surgery Date(Month/Year) appendectomy hemorrhoidectomy total knee arthroplasty 2018 tubal ligation
--- OUTSIDE RECORDS SUMMARY | 2024-08-07 10:01 | XMS_ITS ---
Author Organization [facility] Address [address] [place] [address] Care Team Providers Care Crane Crew Supervisor Name Role Phone Johnathan Mcginnis Primary Care Provider Boubacar Black Unavailable [phone] REASON FOR VISIT r/s PROVIDER RELATIONS ADVOCATE 07/26/24 Encounters Encounter [facility] [address] [facility] Boubacar Allred Plan Of Treatment Next Appt Details Provider Name:Boubacar Allred , 10/15/2024 09:00:00 AM, [address] [place] [address], [phone], Progress Notes * Bhumika MALONEOB: (79 yo F)Acc No.[id number]:07/16/2024 Patient:?Otto MALONEjoslynkasiangie :1945???Age:79 Y???Sex:Female Address:[address] [place] [address], [address] * true * Date:? Generated for Florentinoi comfort/Radha/eTransmitting on:?08/07/2024 10:01 AM EDT
--- OUTSIDE RECORDS SUMMARY | 2024-08-07 10:01 | XMS_ITS | Clinical Summary ---
Author Organization [facility] Address [address] [facility] [address] [place] [address] Care Team Providers Care Condenser Tube Tender Name Role Phone Unavailable Primary Care Provider Unavailabl e Medications GNP 8 Hour Pain Reliever 650 MG ER tabletIndicatio ns:Tooth pain TAKE 1 TABLET BY MOUTH EVERY 8 HOURS NEEDED. SWALLOW WHOLE WITH WATER 20 tablet 03/23/2023 Active Social History Tobacco Use Types Packs/Day Years Used Date Smoking Tobacco: Never Assessed Comments Unknown Sex and Gender Information Value Date Recorded Sex Assigned at Female 2022 10:38 AM EDT Legal Sex Female 10:38 AM EDT Gender Identity Female 2022 10:38 AM EDT Sexual Orientation Don't know 2022 10 :38 AM EDT Plan of Treatment Health Maintenance Due Date Last Done Comments Depression Screening 1945 Alcohol/Substance Use Screening 1956 Tobacco Screening 1957 DTaP/Tdap/Td Vaccines (1 - Tdap) 01/17/1963 Pneumococcal Vaccine: 50+ Ye ars (1 of 1 - PCV) 01/17/1994 Zoster Vaccines (1 of 2) 01/17/1994 RSV Patients and Pa tients Aged 60 years or older (1 - 1-dose 75+ series) 01/17/2019 COVID-19 Vaccine ( - 2023-2 5 season) 2023 Influenza Vaccine (#1) 2023 HIB Vaccines Aged Out No longer eligi ble based on patient's age to complete this topic HPV Vaccines Aged Out No longer eligi ble based on patient's age to complete this topic Hepatitis A Vaccines Aged Out No long er eligible based on patient's age to complete this topic Hepatitis B Vaccines Aged Out No long er eligible based on patient's age to complete this topic IPV Vaccines Aged Out No longer eligi ble based on patient's age to complete this topic Meningococcal B Vaccine Aged Out No l onger eligible based on patient's age to complete this topic Meningococcal Vaccine Aged Out No uriah ketty eligible based on patient's age to complete this topic RSV under 20 months Aged Out No longe r eligible based on patient's age to complete this topic Rotavirus Vaccines Aged Out No longer eligible based on patient's age to complete this topic
--- OUTSIDE RECORDS SUMMARY | 2024-08-07 10:01 | XMS_ITS ---
Author Organization [facility] Address [address] [place] [address] Care Team Providers Care Clean Out Driller Name Role Phone Johnathan Mcginnis Primary Care Provider Boubacar Black Unavailable [phone] Encounters Encounter Location Date Provider Diagnosis [address] [address] 07/26/2024 Boubacar Allred Plan Of Treatment Next Appt Details Provider Name:Boubacar Allred , 10/15/2024 09:00:00 AM, [address] [place] [address], [phone], Progress Notes * Kymberly MALONEnDOB: (79 yo F)Acc No.[id number]:07/26/2024 Progress Notes Patient:?Edgar MALONE Provider:?Boubacar Allred DPM :1945???Age:79 Y???Sex:Female D ate:07/26/2024 Address:[address] [place] [address] [phone] Pcp:Johnathan Mcginnis Subjective: * Chief Complaints: * ??? * Medical History:? Objective: * Vitals:? Assessment: Plan: * Treatment: * Images: * The named appointment provid er may or may not be the originator of this progress note, and it is not deemed complete until electronically signed by the appointment provider. Sign off status: Pending * Provider:?Boubacar Allred DPM Date:?2024 Generated for Erik moyer/Radha/Los on:?08/07/2024 10:01 AM EDT
--- OUTSIDE RECORDS SUMMARY | 2024-08-07 10:01 | XMS_ITS | Encounter Summary ---
Author Organization [facility] Address [address] [facility] [address] [place] [address] Care Team Providers Care Labor Employment Associate Name Role Phone Unavailable Primary Care Provider Unavailabl e Reason for Visit * Reason Comments Med Refill Encounter Details Date Type Department Care Team (Late st Contact Info) Description 03/23/2023 Refill [facility] [address] [place], [place] [phone] Salud Marley BDS [address] [place], [place] [phone] Tooth pain Social History Tobacco Use Types Packs/Day Years Used Date Smoking Tobacco: Never Assessed Comments Unknown Sex and Gender Information Value Date Recorded Sex Assigned at Female 2022 10:38 AM EDT Legal Sex Female 10:38 AM EDT Gender Identity Female 2022 10:38 AM EDT Sexual Orientation Don't know 2022 10 :38 AM EDT documented as of this encounter Miscellaneous Notes * Telephone Encounter - Salud Marley BDS - 03/23/2023 6:06 PM EST Approving, but needs appt for additional refills. documented in this encounter Plan of Treatment Not on file documented as of this encounter Visit Diagnoses Diagnosis Tooth pain Unspecified disorder of the teeth and supporting structures documented in this encounter
[2024-08-07 10:13] LABS: Appearance Urine Turbid; Color Urine Yellow; Glucose Urine UA Negative (Negative); Leukocyte Esterase Urine Large (3+) (Negative); Nitrite Urine Positive (Negative); UMIC TRIGGER UACC YES; Urine Blood Small (1+) (Negative); Urine Ketones Negative (Negative); Urine Protein Trace mg/dL (Neg-Trace)
[2024-08-07 10:27] LABS: Estimated Average Glucose 131 mg/dL; Hemoglobin A1C 154.6473 umol/L; Hemoglobin A1c % 6.2 % (<6.0); Total Hemoglobin (HGBA1C) 3522.4541 umol/L
[2024-08-07 10:32] LABS: Alanine Aminotransferase 21 U/L (0-31); Albumin Level 4.2 g/dL (3.5-5.0); Alkaline Phosphatase 45 U/L (39-117); Anion Gap 11 (12-20); Aspartate Amino Transferase 21 U/L (5-31); Bilirubin Total 0.5 mg/dL (0.0-1.0); Blood Urea Nitrogen 9 mg/dL (9-16); Carbon Dioxide 28 mmol/L (22-29); Chloride 104 mmol/L (96-108); Cholesterol 172 mg/dL (<200); Estimated Glomerular Filt Rate > 60; Glucose Random 88 mg/dL (60-115); HDL Cholesterol 40 mg/dL (>40); LDL Cholesterol Calculated 102 mg/dL (<100); Potassium 4.7 mmol/L (3.3-5.1); Sodium 138 mmol/L (135-145); Total Protein 7.4 g/dL (6.5-8.0); Triglycerides 153 mg/dL (<150)
[2024-08-07 10:35] LABS: Bacteria Urine 4+ (None Seen); Hyaline Casts Urine 0-2 /LPF (0-2); Squamous Epithelial Cell Urine 0-2 /HPF (0-2); UACC Culture Trigger YES; WBC Urine >50 /HPF (0-5)
== END 2024-08-07 09:17 | disposition home or self-care (01) ==
LOC: HO.LAB 09:16
PROVIDERS: PCP Internal Medicine; Visit Provider Internal Medicine
DX: E78.00 Pure hypercholesterolemia, unspecified (principal); R30.0 Dysuria; Z13.1 Encounter for screening for diabetes mellitus
CPT/HCPCS: 36415; 80053; 80061; 81001; 81003; 83036; 87086; 87088; 87186

== ENCOUNTER 2024-08-08 14:30 | Outpatient (AMB) | payer OTHER, SELFPAY ==
--- NOTE | 2024-08-08 14:33 | MHC.PC.OV ---
Vital Signs 08/08/24 14:37 Height 4 ft 11 in Weight 126 lb 2 oz BMI 25.5 BP 120/60 Blood Pressure Location Lt brachial Position Sitting Pulse 83 Pulse Source Pulse Oximeter Temp 97.1 F Temp Source Temporal Artery Scan Pulse Oximetry (%) 98 Oxygen Delivery Method Room Air Intake Visit Reasons: MD Intake Note: Patient is here to follow up on DM. Dishwasher Required: No Pig Conveyor Operator: Present Accompanied by: Daughter-inlaw Allergies beet [BEET] Allergy (Severe, Verified 08/08/24 14:53) THROAT SWELLING carrot [CARROT] Allergy (Severe, Verified 08/08/24 14:53) THROAT SWELLING plantain [PLANTAIN] Allergy (Severe, Verified 08/08/24 14:53) THROAT SWELLING ARI Inhibitors [ARI INHIBITORS] Adverse Reaction (Intermediate, Verified 08/08/24 14:53) Cough simvastatin [SIMVASTATIN] Adverse Reaction (Intermediate, Verified 08/08/24 14:53) Muscle Pain ZULMA FRUIT Allergy (Severe, Uncoded 08/08/24 14:53) THROAT SWELLING SEASONAL ALLERGIES Allergy (Intermediate, Uncoded 08/08/24 14:53) ITCHY EYES, RUNNY NOSE Medication List - Last Reconciled 08/08/24 by Birgit Burciaga PA-C amlodipine 5 mg PO DAILY 90 days ascorbate calcium (vitamin C) 500 mg PO DAILY [Bedside commode [facility] 5feet weight 132lbs] blood sugar diagnostic test 3 times a day after surgery blood sugar diagnostic (JumiaTouch Ultra Test strips) As directed check the blood sugar twice a day cyanocobalamin (vitamin B-12) 1,000 mcg PO DAILY cyclobenzaprine 5 mg PO BEDTIME PRN ferrous sulfate 325 mg PO DAILY fexofenadine (Angeline Allergy) 180 mg PO DAILY gabapentin 100 mg PO BEDTIME glimepiride 2 mg PO QAM lancets 3x's per day after surgery lancets As directed check the blood sugar twice .day losartan 50 mg PO DAILY metformin 1,000 mg PO BID 90 days nitrofurantoin monohyd/m-cryst 100 mg (Macrobid) 100 mg PO Q12H 7 days olopatadine 0.1% 1 drp ophthalmic (eye) BID pravastatin 10 mg PO DAILY Tobacco use date assessed: 08/08/24 Fall risk assessment: No Falls in past year Last assessed Fall Risk: 08/08/24 Dental Screening Dental Screen Date: 04/06/24 HPI MD HOYOS Details 79-year-old female with past medical history of hypercholesterolemia, diabetes mellitus, hypertension and diabetic neuropathy last seen 03/2024 coming in for follow up on her diabetes. Presenting with hyperlipidemia. Her LDL cholesterol was 102 mg/dL, slightly elevated from a previous reading of 101 mg/dL. Patient has Type 2 Diabetes Mellitus with A1c levels improving from 6.5% to 6.2%. Right shoulder pain started about 2-3 months ago, with patient describing pain mostly in her shoulder and occasionally extending down the arm. Urinary symptoms suggestive of a urinary tract infection have been ongoing, with treatment initiated with Macrobid by Dr. Mcginnis yesterday. Complaints of itchy, dry ear skin, possibly due to xerosis or allergies. [facility] Medical History Iron deficiency anemia Anemia Age-related osteoporosis without current pathological fracture Cataract Hypercholesterolemia Vitamin D deficiency Knee osteoarthritis Vitamin B12 deficiency Type 2 diabetes mellitus with hyperglycemia Osteoporosis Patient speaks only a foreign language Arthritis HTN (hypertension) Surgical History History of bilateral cataract extraction H/O colonoscopy History of total knee arthroplasty History of hemorrhoidectomy History of tubal ligation History of appendectomy Family History Father No problems noted. Mother No problems noted. Brother No problems noted. Son No problems noted. Son No problems noted. Daughter No problems noted. Sister No problems noted. Sister No problems noted. Sister No problems noted. 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 Review of Systems Const Denies body aches, Denies chills, Denies fever(s), Denies headache(s) and Denies poor appetite Eyes Reports no additional complaints ENT Denies dysphagia, Denies dizziness, Denies headache(s) and Denies odynophagia Card Denies chest pain, Denies lightheadedness and Denies dyspnea Resp Denies cough and Denies dyspnea GI Denies abdominal pain, Denies constipation, Denies dysphagia, Denies diarrhea, Denies nausea, Denies odynophagia and Denies vomiting Reports no additional complaints Musc Reports no additional complaints and Denies abnormal gait Skin/Breast Reports system reviewed and no additional complaints, except as documented Neuro Denies abnormal gait, Denies dizziness and Denies headache(s) Psych Reports no additional complaints Physical exam (Primary Care) Vital Signs: Last Vital Signs Temp 97.1 F 08/08/24 14:37 Pulse 83 08/08/24 14:37 BP 120/60 08/08/24 14:37 Pulse Ox 98 08/08/24 14:37 Oxygen Delivery Method Room Air 08/08/24 14:37 BMI result Body Mass Index 25.5 Tobacco/Smoking Status: Tobacco use Status Tobacco use date assessed 08/08/24 08/08/24 14:34 Patient Tobacco Use Status Never used Tobacco 08/08/24 14:34 Tobacco use type Cigarette 08/08/24 14:34 e-Cigarette/Vaping Use Never Used 08/08/24 14:34 Thrive Assessment: Date of Thrive Assessment Date Thrive assessed 04/06/24 08/08/24 14:34 Const General: cooperative, healthy appearing, comfortable and no acute distress Orientation/consciousness: patient oriented x3 HENMT Head: Yes normocephalic Ears: hearing grossly normal bilaterally General nose exam: Normal external nose present Eyes General: appearance normal, both eyes and all related structures Conjunctivae: conjunctivae normal Neck Neck: Yes full ROM and Yes no lymphadenopathy Resp Effort & Inspection: normal respiratory effort Auscultation: clear to auscultation bilaterally, crackles bilateral at the base, no rales, no rhonchi and no wheezes Cardio Rate: regular rate Rhythm: regular rhythm Skin General skin exam: no rashes or lesions noted Neuro General: patient oriented x3 Gait exam (Neuro): Normal gait present Extrem Other: tenderness to palpation of the right shoulder. pain with internal rotation. intact strength, sensation and pulses in geraldo UE General: Yes normal to inspection, Yes full ROM and No edema Psych Affect: normal affect Attitude: cooperative Insight: Good insight present (Psych) Judgement: Good judgement present (Psych) Coding Level of Care Code Est Pt Level 3 (92146) Diagnoses Type 2 diabetes mellitus with hyperglycemia, without long-term current use of insulin E11.65 Diabetes mellitus vermin exterminator insulin use: without vermin exterminator use Essential hypertension I10 Hypertension type: essential hypertension Diabetic neuropathy E11.40 Hypercholesterolemia E78.00 Right shoulder pain M25.511 Lung crackles R09.89 Excessive cerumen in ear canal H61.20 Assessment & Plan Assessment & Plan (1) Type 2 diabetes mellitus with hyperglycemia: Comment: Dr. Trejo Code(s): E11.65 - Type 2 diabetes mellitus with hyperglycemia Category: Medical Qualifiers: Diabetes mellitus fpc insulin use: without fpc use Qualified Code(s): E11.65 - Type 2 diabetes mellitus with hyperglycemia Plan: Decrease the amount of carbohydrates such as pasta, bread, rice, and potatoes and limit the amount of sweets. Although fruits are generally healthy they should be eaten in moderation as they are still high in sugar. Hemoglobin A1c goal of less than 7%. A1c improved to 6.2% continue on current regimen. (2) HTN (hypertension): Code(s): I10 - Essential (primary) hypertension Category: Medical Qualifiers: Hypertension type: essential hypertension Qualified Code(s): I10 - Essential (primary) hypertension Plan: Continue on current blood pressure medication. Avoid salt intake and encourage healthy diet and regular exercise. (3) Diabetic neuropathy: Code(s): E11.40 - Type 2 diabetes mellitus with diabetic neuropathy, unspecified Category: Medical Plan: Advised good control of the blood sugars. Patient currently on gabapentin 100 mg at bedtime (4) Hypercholesterolemia: Code(s): E78.00 - Pure hypercholesterolemia, unspecified Category: Medical Plan: Avoid foods that are high in cholesterol such as red meat, fried foods, eggs and baked goods. Triglyceride goal of less than 150 and LDL goal of less than 100. Discussed the mildly elevated labs and gave patient the option to increase dose or work on lifestyle modification. Patient would like to increase dose at this time. PLan to increase Pravastatin to 20 mg. (5) Right shoulder pain: Code(s): M25.511 - Pain in right shoulder Category: Medical Plan: Patient having new onset right shoulder pain and limited ROM. PLan to obtain right shoulder XR for further evaluation. May use tylenol and heating pad prn for pain. Lidocaine patch also sent to pharmacy. (6) Lung crackles: Code(s): R09.89 - Other specified symptoms and signs involving the circulatory and respiratory systems Category: Medical Plan: new onset lung crackles in bilateral lung bases plan to obtain CXR and BNP for further evaluation. PAtient denying any symptoms of fluid overload today. (7) Excessive cerumen in ear canal: Code(s): H61.20 - Impacted cerumen, unspecified ear Category: Medical Plan: debrox prn , rx sent Plan We have decided to increase the patient's pravastatin dose to manage her LDL cholesterol levels. The risk of muscle aches was discussed, and the patient will report any issues experienced on the adjusted medication. An x-ray will assess the patient's right shoulder pain, thought possibly arthritic in nature, with diclofenac gel and lidocaine patches provided for relief. A chest x-ray is also advised to check for any underlying concerns related to the crackling noted in the lungs. Confirmation of the ongoing urinary tract infection will continue, pending additional culture results; treatment is currently underway. Dry ear skin and cerumen will be addressed using Debrox drops. Continued follow-up for chronic conditions and regular monitoring of blood glucose and cholesterol levels has been planned. This note was constructed using voice recognition software. While every effort has been made to ensure accuracy and american sign language interpreter, still areas may have been included sometimes these areas may affect the content or meeting of the given symptoms. Total time spent caring for the patient today was 20 minutes. This includes time spent before the visit reviewing the chart, time spent during the visit, and time spent after the visit and documentation. Patient was informed and verbally consented to the use of an ambient scribe for clinic note documentation during this visit. Orders: Orders XR shoulder RT min 2V Today M25.511 - Pain in right shoulder B Type Natriuretic Peptide Today R09.89 - Other specified symptoms and signs involving the circulatory and respiratory systems XR chest 2V Today R09.89 - Other specified symptoms and signs involving the circulatory and respiratory systems Medications: New pravastatin 20 mg PO DAILY 90 tabs 1RF diclofenac sodium 1% (Voltaren Arthritis Pain) apply to single elbow, wrist or hand; for hand includes palm/fingers/back of hand 2 grams topical QID 50 grams 0RF lidocaine 5% leave on most painful area for up to 12 hrs 1 patch topical DAILY 15 ea 1RF carbamide peroxide 6.5% (Debrox) 5 drps otic (ear) left DAILY 4 days 15 mL 0RF Refilled blood sugar diagnostic (OneTouch Ultra Test strips) As directed check the blood sugar twice a day 200 ea 3RF E11.65 - Type 2 diabetes mellitus with hyperglycemia
[2024-08-08 14:37] VITALS: BP 120/60; PULSE 83; TEMP 36.2; O2SAT 98; BMI 25.5
--- OUTSIDE RECORDS SUMMARY | 2024-08-08 14:43 | XMS_ITS | Patient Health Record ---
[facility] Address [address] [place] [address] Care Team Providers Care Barrel Plater Name Role Phone Johnathan Mcginnis Primary Care Provider Boubacar Black Unavailable [phone] Allergies Allergen (clinical drug ingredient) Drug/Non Drug [...] Problem Status W/U Status Risk Notes Problem Polyneuropathy due to type 2 diabetes mellitus ([id number]) Type 2 diabetes mellitus with diabetic polyneuropathy (E11.42) Active confirmed Encounters Encounter Location Date Provider Diagnosis [facility] [place] [address] [place] [phone] 07/16/2024 Boubacar Allred Plan Of Treatment Pending Test Test Name Order Date X ray : Foot, right 3V 12/23/2020 [id number] SKIN LESIONS, 2 TO 4 12/24/19 21 Next Appt Details Provider Name:Boubacar Allred , 10/15/2024 09:00:00 AM, [address] [facility], [place] [address], [place], [address], Insurance Providers Payer Name Payer Address Payer Phone Subscriber Number Group Number Insured Name Patient Relationship to Insured Coverage Start Date Coverage End Date [facility] [address] [place] [phone] [id number] Edgar [place] Self - patient is the insured Medical (General) History Medical History History ICD Code Diabetic Hypertension Hypercholesterolemia Cataracts Osteoporosis Arthritis Anemia Back,Hip,and Knee pain Joint implants/screws Surgical History Surgery Date(Month/Year) appendectomy hemorrhoidectomy total knee arthroplasty 2018 tubal ligation
--- OUTSIDE RECORDS SUMMARY | 2024-08-08 14:43 | XMS_ITS ---
Author Organization [facility] Address [address] [place] [phone] Care Team Providers Care Director Of Parks And Recreation Name Role Phone Johnathan Mcginnis Primary Care Provider Boubacar Black Unavailable [phone] Encounters Encounter Location Date Provider Diagnosis [address] [address] 07/26/2024 Boubacar Allred Plan Of Treatment Next Appt Details Provider Name:Boubacar Allred , 10/15/2024 09:00:00 AM, [address] [place] [address], [phone], Progress Notes * Kymberly MALONEnDOB: (79 yo F)Acc No.[id number]:07/26/2024 Progress Notes Patient:?Edgar [place] Provider:?Boubacar Allred DPM :1945???Age:79 Y???Sex:Female D ate:07/26/2024 Address:[address] [place] [address] shamika Olivia [id number] Pcp:Johnathan Mcginnis Subjective: * Chief Complaints: * ??? * Medical History:? Objective: * Vitals:? Assessment: Plan: * Treatment: * Images: * The named appointment provid er may or may not be the originator of this progress note, and it is not deemed complete until electronically signed by the appointment provider. Sign off status: Pending * Provider:?Boubacar Allred DPM Date:?2024 Generated for Erik moyer/Radha/Los on:?08/08/2024 02:43 PM EDT
--- OUTSIDE RECORDS SUMMARY | 2024-08-08 14:43 | XMS_ITS ---
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 Generated for Florentinoi comfort/Radha/eTransmitting on:?08/08/2024 02:42 PM EDT
== END 2024-08-08 15:18 | disposition home or self-care (01) ==
LOC: HO.HMCH 14:30
PROVIDERS: PCP Internal Medicine
DX: E11.65 Type 2 diabetes mellitus with hyperglycemia (principal); E11.40 Type 2 diabetes mellitus with diabetic neuropathy, unspecified; I10 Essential (primary) hypertension; E78.00 Pure hypercholesterolemia, unspecified; M25.511 Pain in right shoulder; R09.89 Other specified symptoms and signs involving the circulatory and respiratory systems; H61.23 Impacted cerumen, bilateral

== ENCOUNTER → 2024-08-08 14:30 | Outpatient (BNVA) | payer OTHER, SELFPAY | PROVIDERS: PCP Internal Medicine | DX: E11.65 Type 2 diabetes mellitus with hyperglycemia (principal); E11.40 Type 2 diabetes mellitus with diabetic neuropathy, unspecified; E78.00 Pure hypercholesterolemia, unspecified; I10 Essential (primary) hypertension; M25.511 Pain in right shoulder; R09.89 Other specified symptoms and signs involving the circulatory and respiratory systems; H61.20 Impacted cerumen, unspecified ear | CPT/HCPCS: 99212 ==

== ENCOUNTER 2024-09-14 13:14 | Outpatient (REF) | payer OTHER, SELFPAY ==
--- NOTE | ~2024-09-14 | XR_ITS ---
EXAMINATION: XR SHOULDER, RIGHT CLINICAL INFORMATION: M25.511 - Pain in right shoulder COMPARISON: None available. TECHNIQUE: AP external rotation, Grashey, scapular Y, and axillary views of the right shoulder. FINDINGS: Degenerative changes in the common clavicular joint and the inferior glenohumeral joint. No acute cortical disruption or malalignment. No lytic or blastic lesions. Focal calcifications along the bicipital groove of the humerus. XR/XR shoulder RT min 2V IMPRESSION: Degenerative changes more pronounced in the acromion clavicular joint without acute fracture or dislocation. Calcific tendinosis/tendinopathy bicipital long head tendon. Electronically signed by: Jeremias Funk MD 09/14/2024 02:00 PM EDT
--- NOTE | ~2024-09-14 | XR_ITS ---
EXAMINATION: XR CHEST CLINICAL INFORMATION: R09.89 - Other specified symptoms and signs involving the circulatory an... COMPARISON: August 31, 2021. TECHNIQUE: 2 views of the chest were obtained. FINDINGS: Pulmonary reticular pattern. No consolidation, pleural fissure pneumothorax. No hyperinflation. Cardiomediastinal silhouette size is normal. Calcified plaque thoracic aorta with tortuosity. S-shaped curvature of the thoracolumbar spine with multilevel spondylosis. Osteopenia versus the process. Degenerative changes in the shoulders. XR/XR chest 2V IMPRESSION: Chronic interstitial lung disease without acute airspace disease. Stable chest. Electronically signed by: Jeremias Funk MD 09/14/2024 01:58 PM EDT
--- OUTSIDE RECORDS SUMMARY | 2024-09-14 13:45 | XMS_ITS | Clinical Summary ---
Author Organization [facility] Address [address] [facility] [address] [place] [address] Care Team Providers Care Drencher Name Role Phone Unavailable Primary Care Provider [...] - 2023-2 5 season) 2023 Influenza Vaccine (Season Ended) 2024 HIB Vaccines Aged Out No longer eligi [...]
== END 2024-09-14 13:15 | disposition home or self-care (01) ==
LOC: HO.XRAY 13:14
PROVIDERS: PCP Internal Medicine
DX: M25.511 Pain in right shoulder (principal); R09.89 Other specified symptoms and signs involving the circulatory and respiratory systems
CPT/HCPCS: 71046; 73030

== ENCOUNTER → 2024-09-14 13:21 | Outpatient (BNV) | payer OTHER, SELFPAY | PROVIDERS: PCP Internal Medicine; Visit Provider Radiology Diagnostic Radiology | DX: J84.9 Interstitial pulmonary disease, unspecified (principal); M25.811 Other specified joint disorders, right shoulder | CPT/HCPCS: 71046; 73030 ==

== ENCOUNTER 2024-11-14 11:28 | Outpatient (AMB) | payer OTHER, SELFPAY ==
--- OUTSIDE RECORDS SUMMARY | 2024-07-26 06:00 | XMS_ITS ---
Author Organization [facility] Address [address] [place] [address] Care Team Providers Care Hospice Fellow Name Role Phone Johnathan Mcginnis Primary Care Provider UnavailBoubacar Orta Unavailable [phone] Encounters Encounter Location Date Provider Diagnosis [address] [address] 07/26/2024 Boubacar Allred Plan Of Treatment Next Appt Details Provider Name:Boubacar Allred , 01/30/2025 01:30:00 PM, [address] [place] [address], [phone], Progress Notes * MALONEKymberly VAZQUEZArnoldOB: 4 (79 yo F)Acc No.[id number]:07/26/2024 Progress Notes Patient: Edgar ESPANA Provider: Karthik Allred DPM :1945 A ge:79 Y S ex:Female Date:07/26/2024 Address:[address] [place], [place] [id number] Pcp:Johnathan Mcginnis Subjective: * Chief Complaints: * [...] 0 07/26/2024 Generated for Erik moyer/Radha/Los on: 0 11/14/2024 12:31 PM EDT
--- OUTSIDE RECORDS SUMMARY | 2024-10-15 10:00 | XMS_ITS ---
[facility] Address [address] [place] [address] Care Team Providers Care Posting Machine Operator Name Role Phone Johnathan Mcginnis Primary Care Provider Unavailabl Boubacar Addison Unavailable [phone] Encounters Encounter Location Date Provider Diagnosis [address] [address] 10/15/2024 Boubacar Allred Plan Of Treatment Next Appt Details Provider Name:Boubacar Allred , 01/30/2025 01:30:00 PM, [address] [place] [address], [phone], Progress Notes * MALONEGloria VAZQUEZVenusOB: 4 (79 yo F)Acc No.[id number]:10/15/2024 Progress Notes Patient: Edgar ESPANA Provider: Karthik Allred DPM :1945 A ge:79 Y S ex:Female Date:10/15/2024 Address:[address] [place], [place] [phone] Pcp:Johnathan Mcginnis Subjective: * Chief Complaints: * [...] 0 10/15/2024 Generated for Erik moyer/Radha/Los on: 0 11/14/2024 12:31 PM EDT
--- NOTE | 2024-11-14 11:34 | MHC.OFFVIS ---
Vital Signs 11/14/24 11:43 Height 4 ft 11 in Weight 126 lb BMI 25.4 Intake Visit Reasons: New Prob - right shoulder pain Intake Note: Edgar is an 79 year old right hand dominant female who presents today as an established patient, new problem visit to evaluate her right shoulder pain. Patient was referred by her PCP. Patient reports her pain has been present for years. No injury. States her pain is located in her whole shoulder and down her arm to her elbow. No numbness or tingling. She feels a heaviness in her shoulder and is limited on ROM. No previous treatment. She would like to discuss cortisone injections. Allergies beet (BEET) Allergy (Severe, Verified 11/14/24 14:24) THROAT SWELLING carrot (CARROT) Allergy (Severe, Verified 11/14/24 14:24) THROAT SWELLING plantain (PLANTAIN) Allergy (Severe, Verified 11/14/24 14:24) THROAT SWELLING RAI Inhibitors (ARI INHIBITORS) Adverse Reaction (Intermediate, Verified 11/14/24 14:24) Cough simvastatin (SIMVASTATIN) Adverse Reaction (Intermediate, Verified 11/14/24 14:24) Muscle Pain ZULMA FRUIT Allergy (Severe, Uncoded 11/14/24 14:24) THROAT SWELLING SEASONAL ALLERGIES Allergy (Intermediate, Uncoded 11/14/24 14:24) ITCHY EYES, RUNNY NOSE Medication List - Last Reconciled 11/14/24 by Ruthann Carter PA-C amlodipine 5 mg PO DAILY 90 days ascorbate calcium (vitamin C) 500 mg PO DAILY [Bedside commode [facility] 5feet weight 132lbs] blood sugar diagnostic test 3 times a day after surgery blood sugar diagnostic (iProcureTouch Ultra Test strips) As directed check the blood sugar twice a day carbamide peroxide 6.5% (Debrox) 5 drps otic (ear) left DAILY 4 days cyanocobalamin (vitamin B-12) 1,000 mcg PO DAILY cyclobenzaprine 5 mg PO BEDTIME PRN diclofenac sodium 1% (Voltaren Arthritis Pain) 2 grams topical QID epinephrine (EpiPen 2-El) 0.3 mg (0.3 mL) IM Q10M PRN ferrous sulfate 325 mg PO DAILY fexofenadine (Angeline Allergy) 180 mg PO DAILY gabapentin 100 mg PO BEDTIME glimepiride 2 mg PO QAM lancets 3x's per day after surgery lancets As directed check the blood sugar twice .day lidocaine 5% 1 patch topical DAILY losartan 50 mg PO DAILY metformin 1,000 mg PO BID 90 days nitrofurantoin monohyd/m-cryst 100 mg (Macrobid) 100 mg PO Q12H 7 days olopatadine 0.1% 1 drp ophthalmic (eye) BID pravastatin 20 mg PO DAILY HPI HPI New Prob - right shoulder pain: Details: 79 year Old female comes to the office today accompanied by her daughter for ongoing right shoulder pain. She denies injury. She complains of pain with overhead reaching and daily activities like cleaning. She also has pain when she is sleeping at night. She also feels weakness when carrying heavy objects. [facility] Medical History Iron deficiency anemia Anemia Age-related osteoporosis without current pathological fracture Cataract Hypercholesterolemia Vitamin D deficiency Knee osteoarthritis Vitamin B12 deficiency Type 2 diabetes mellitus with hyperglycemia Osteoporosis Patient speaks only a foreign language Arthritis HTN (hypertension) Surgical History History of bilateral cataract extraction H/O colonoscopy History of total knee arthroplasty History of hemorrhoidectomy History of tubal ligation History of appendectomy Family History Father No problems noted. Mother No problems noted. Brother No problems noted. Son No problems noted. Son No problems noted. Daughter No problems noted. Sister No problems noted. Sister No problems noted. Sister No problems noted. 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 Tenderness over the bicipital groove and along deltoid region of the shoulder. FF to 175, ER to 90, IR to S1. 5/5 RTC strength, negative sears, cross body abduction. NVI. Office Procedures AMB Joint Injection/Aspiration Joint Injection/Aspiration Primary Site: right shoulder Prep: site was prepped using aseptic technique, ethochloride spray was applied and injection warnings given Injected: 40 mg of, with 3 mL of, 1% plain lidocaine, 0.25% bupivacaine and in the subcromial space Approach Used: posterolateral Coding 28694 - Glenohumeral/Tronchanteric Bursa/Intraarticular Procedure code (CPT) selection complete Results Reviewed Results Reviewed: XR shoulder RT min 2V IMPRESSION: Degenerative changes more pronounced in the acromion clavicular joint without acute fracture or dislocation. Calcific tendinosis/tendinopathy bicipital long head tendon. Assessment & Plan Assessment & Plan (1) Osteoarthritis of right acromioclavicular joint: Code(s): M19.011 - Primary osteoarthritis, right shoulder Category: Medical Plan: We discussed options today, which include steroid injection. The patient did consent to move forward with the injection, which was tolerated well.? I recommended rest, ice and elevation and OTC antiinflammatories prn for discomfort. If symptoms persist over the next 6-8 weeks, they will contact our office, otherwise, prn We also discussed their diabetes and the effect the steroid can have on thier blood glucose levels; therefore, they will continue to monitor these very closely over the next 72 hours Orders: Orders PT Evaluation and Treatment Today M19.011 - Primary osteoarthritis, right shoulder Medications: New diclofenac sodium 1% apply to single knee, ankle, foot; for foot includes sole/toes/top of foot 4 grams topical QID 100 grams 0RF 30 days Coding Level of Care Code Est Pt Level 3 (91146) Complex EM visit Add On G2211 Diagnoses Osteoarthritis of right acromioclavicular joint M19.011 CPT Codes Coding - Joint 7: 93406 - Glenohumeral/Tronchanteric Bursa/Intraarticular ([id number])
[2024-11-14 11:43] VITALS: BMI 25.4
--- OUTSIDE RECORDS SUMMARY | 2024-11-14 12:31 | XMS_ITS | Encounter Summary ---
Author Organization [employer] Address [address] [facility] 7 [place] [address] Care Team Providers Care Cataloging Assistant Name Role Phone Unavailable Primary Care Provider Unavailabl e Reason for Visit * Reason Comments Med Refill Encounter Details Date Type Department Care Team (Late st Contact Info) Description 03/23/2023 Refill C [facility] [address] [place], [place] [phone] Salud Marley B[facility] [address] [place], [place] [phone] Tooth pain Social History Tobacco Use Types [...]
--- OUTSIDE RECORDS SUMMARY | 2024-11-14 12:31 | XMS_ITS | Clinical Summary ---
Author Organization [email or web address] Address [address] [facility] [address]t [place] [address] Care Team Providers Care Supervisor [employer] Boat Assembly Name Role Phone Unavailable Primary Care Provider [...] 2023-2 5 season) 2023 Influenza Vaccine (#1) 2024 HIB Vaccines Aged Out No longer [...]
--- OUTSIDE RECORDS SUMMARY | 2024-11-14 12:31 | XMS_ITS | Encounter Summary ---
Author Organization [facility] Address [address] [place] [address] [place] [address] Phone Care Team Providers Care Jewelry Sales Associate Name Role Phone Johnathan Mcginnis MD Primary Care Provider [phone] Reason for Referral * Physical Therapy (Routine) - Closed Specialty Diagnoses / Procedures Referred By Radha haider Referred To Contact Physical Therapy Diagnoses Encounter for rehabilitation System, Provider Not In, [facility] [id number] [place] [address] Phone: tel: Referral ID Status Reason Start Date Expiration Date Visits Re quested Visits Authorized [id number] Closed 02/24/2018 02/24/2019 20 20 Encounter Details Date Type Department Care Team (Latest Contact Info) Description 02/24/2018 Transcribe Orders [facility] [address] [place] [address] Harman Rivas PA [address] [place] [id number] Encounter for rehabilitation (Primary Dx) Social History Tobacco Use Types Packs/Day Years Used Date Smoking Tobacco: Never Assessed Comments Unknown Sex and Gender Information Value Date Recorded Sex Assigned at Not on file Legal Sex Female 10:37 AM EST Gender Identity Not on file Sexual Orientation Not on file documented as of this encounter Plan of Treatment Not on file documented as of this encounter Procedures Procedure Name Priority Date/Time Associated Diagnosis Comments AMB REFERRAL TO [facility] PHYSICAL THERAPY Routine 03/27/2018 12:59 PM EST Encounter for rehabilitation documented in this encounter Results * Ambulatory referral to [facility] Physical Therapy (03/27/2018 12:59 PM EST) us Provider Not In System PhD [facility]B [facility] REFERRALS Fin al Result documented in this encounter Visit Diagnoses Diagnosis Encounter for rehabilitation- Primary documented in this encounter Care Teams Jewelry Sales Associate Relationship Specialty Start Date End Date Johnathan Mcginnis MD [address] [place] [phone] PCP - General Internal Medicine 02/24/18 documented as of this encounter Additional Source Comments The information contained in this document represents components of the legal health record. It is not the complete legal health record.[facility]
--- OUTSIDE RECORDS SUMMARY | 2024-11-14 12:31 | XMS_ITS | Clinical Summary ---
Author Organization [facility] Address [address] [facility] [address] [place] [address] Phone Care Team Providers Care Thoracic Surgeon Name Role Phone Johnathan Mcginnis MD Primary Care Provider [phone] Social History Tobacco Use Types Packs/Day Years Used Date Smoking Tobacco: Never Assessed Education Answer Date Recorded Are you interested in more education? Not on melquiades e 07/16/2022 Are you concerned about learning? Not on file 07/16/2022 No 07/16/2022 No 07/16/2022 Digital Access Answer Date Recorded No 08/10/2022 No 08/10/2022 No 08/10/2022 Reliable internet access at home? Not on file 08/10/2022 Device with a working camera? Not on file Comments Unknown Sex and Gender Information Value Date Recorded Sex Assigned at Not on file Legal Sex Female 10:37 AM EST Gender Identity Not on file Sexual Orientation Not on file Plan of Treatment Health Maintenance Due Date Last Done Comments Adult Td,Tdap Booster 1945 LIPID PANEL 1944 DEPRESSION SCREENING 1956 SMOKING Hx and SMOKELESS TOBACCO SCREENING 01/17/1957 OSTEOPOROSIS SCREENING INITI AL (ONE-TIME) 01/17/2009 PNEUMOCOCCAL VACCINES (50+ years) (2 of 2 - PCV) 01/26/2017 01/27/2016 RSV VACCINE (1 - 1-dose 75+ series) 01/17/2019 COVID-19 VACCINE (3 - 2023-2 5 season) 2023 05/05/2020, 04/14/2020 ZOSTER VACCINES Completed 02/07/2020, 11/22/2019 HEPATITIS A VACCINES Aged Out No long er eligible based on patient's age to complete this topic HIB VACCINES Aged Out No longer eligi ble based on patient's age to complete this topic MENINGOCOCCAL VACCINES (ACWY) Aged Out No longer eligible based on patient's age to complete this topic MENINGOCOCCAL VACCINES (B) Aged Out N o longer eligible based on patient's age to complete this topic Medical Devices Not on file Insurance MEDICARE REPLACEMENT MEDICARE REPLACEMENT MEDICARE REPLACEMENT MEDICARE REPLACEMENT MEDICARE REPLACEMENT MEDICARE REPLACEMENT Care Teams Thoracic Surgeon Relationship Specialty Start Date End Date Johnathan Mcginnis MD [address] [place] [address] PCP - General Internal Medicine 02/24/18 Additional Source Comments The information contained in this document represents components of the legal health record. It is not the complete legal health record.[facility]
--- OUTSIDE RECORDS SUMMARY | 2024-11-14 12:32 | XMS_ITS | Patient Health Record ---
Author Organization [facility] Alexandra Camaraley Address [address] [place] [address] Care Team Providers Care Tobacco Classer Name Role Phone Johnathan Mcginnis Primary Care Provider Boubacar Black Unavailable [phone] Allergies Allergen (clinical drug ingredient) Drug/Non Drug Allergy documented on EMR Reaction Allergy Type Onset Date Status beet (uncoded) Throat swelling Allergy Active solitario fruit (uncoded) Throat swelling Allergy Active Plantain plantain (uncoded) Throat Swelling Allergy Active Carrot Flavor Throat swelling Drug Allergy Active Seasonal IC Itchy eyes, runny nose Drug Allergy Active angiotensin-convert ing enzyme inhibitor (FN) ARI Inhibitors Coughing Drug Allergy Active simvastatin Simvastatin Muscle Pain Drug Allergy A ctive Results Component Value Reference Range Notes HEMOGLOBIN A1C (GLYCOHEMOGLO BIN) Reviewed date:10/12/2024 11:13:04 AM Interpretation: Performing Lab: Notes/Report: HEMOGLOBIN A1C % (HH) 6.2 Reason For Referral Diagnosis 1 Type 2 diabetes cheryl itus with hyperglycemia, unspecified whether termite renewal inspector insulin use (E11.65) Referring Provider First Name Johnathan Referring Provider Last Name [facility] Referred Provider Boubacar Allred Referred Address [address] [place], [place],[address], Referred Provider Specialty Podiatry Referral Priority Routine Medications Medication SIG (Take, Route, Frequency, Duration) Notes Start Date End Date Status Gabapentin 100 MG 1 capsule at bedtime Orally Once a day Active Fexofenadine HCl Act eugene Zoledronic Acid Not- Taking Ferrous Sulfate 325 (65 Fe) MG 1 tablet Orally Once a day; Duration: 30 day(s) Active Sennosides Not-Takin g amLODIPine Besylate 10 MG 1 tablet Orall y Once a day Active Cyanocobalamin Not-T aking Extra Depth Orthopedic Shoes (1 Pair) with Customized Heat Molded Multidensity Innersoles (3 Pair) Dx: NIDDM/Polyneuropathy (E11.42), Hammertoe Foot Deformity (M20.41,M20.42), Preulcerative Skin Lesion(s) (L85.1); Duration: 365 days 10/15/2024 Active metFORMIN HCl 1000 MG 1 tablet with a me al Orally Once a day; Duration: 30 days Active Vitamin C Active Vitamin B12 Active Extra Depth Diabetic Shoes with 3 Pair Custom heat-molded multi-density innersoles for 1 year Dx: 12/23/2020 Active Pravastatin Sodium 20 MG 1 tablet Orally Once a day; Duration: 30 days Active Nitrofurantoin Activ e Losartan Potassium 50 MG 1 tablet Orally Once a day; Duration: 30 day(s) Active Glimepiride 2 MG 1 tablet with breakf ast or the first main meal of the day Orally Once a day; Duration: 30 day(s) Active Aspirin 81 MG 1 tablet Orally Once a day; Duration: 30 day(s) Not-Taking Loratadine Not-Takin g Immunizations Vaccine Route Administration Date Status Comme nts Influenza Unknown 11/21/2023 Administered Social History Tobacco Use: Social History Observation Description Date Details (start date - stop date) Never Smoker NA - NA Tobacco use other than smoking: Question Answer Notes Are you an other tobacco user? No Tobacco Control (Standard) Question Answer Notes Tobacco use: Nonsmoker Additional Findings: Tobacco non-user Current no nsmoker AUDIT-C (Standard) Question Answer Notes Did you have a drink containing alcohol in the p ast year? No Points 0 Interpretation Negative Problems Problem Type SNOMED Code ICD Code Onset Dates Problem Status W/U Status Risk Notes Problem Acquired hammer toe of right foot (7759839264277472 ) Other hammer toe(s) (acquired), right foot (M20.41) Active confirmed Problem Acquired hammer toe of left foot ([id number] ) Other hammer toe(s) (acquired), left foot (M20.42) Active confirmed Problem Polyneuropathy due to type 2 diabetes mellitus (881709772) Type 2 diabetes mellitus with diabetic polyneuropathy (E11.42) Active confirmed Vital Signs Height 4 ft 10 in in 10/15/2024 Weight 130 lbs 10/15/2024 BMI 27.17 kg/m2 10/15/2024 Procedures Procedure Date Ordered Date Performed Result Body Sit e 97502-HFLYWFY NAIL, 6 OR MORE 10/15/2024 N/A 58543-[id number] SKIN LESIONS, OVER 4 10/15/2024 N/A Encounters Encounter [facility] Date [facility] [address] 10/15/2024 Boubacar Allred Type 2 diabetes mellitus with diabetic polyneuropathy E11.42 ; Tinea unguium B35.1 ; Other hammer toe(s) (acquired), right foot M20.41 and Other hammer toe(s) (acquired), left foot M20.[address] [address] 07/16/2024 Boubacarananya Alonzoier Assessments Encounter Date Diagnosis (ICD Code) Assessment Notes Treatment Notes Treatment Clinical Notes Section Notes 10/15/2024 Type 2 diabetes mellitus with diabetic polyneuropathy (ICD-10 - E11.42) 10/15/2024 Tinea unguium (ICD-10 - B35.1) 10/15/2024 Other hammer toe(s) (acquired), right foot (ICD-10 - M20.41) Patient Educated with: DIABETIC FOOT CARE INSTRUCTIONS. pdf (DIABETIC FOOT CARE INSTRUCTIONS. pdf) 10/15/2024 Other hammer toe(s) (acquired), left foot (ICD-10 - M20.42) Plan Of Treatment Pending Test Test Name Order Date X ray : Foot, right 3V 12/23/2020 [id number] NAIL, 6 OR MORE 10/15/2024 [id number] SKIN LESIONS, OVER 4 10/16/19 25 [id number] SKIN LESIONS, 2 TO 4 12/24/19 21 Next Appt Details Provider Name:Boubacar Allred , 01/30/2025 01:30:00 PM, [address] [place] [address], [place], [address], Insurance Providers Payer Name Payer Address Payer Phone Subscriber Number Group Number Insured Name Patient Relationship to Insured Coverage Start Date Coverage End Date [facility] [address] [place] [phone] [id number] Edgar Malone Self - patient is the insured Medical (General) History Medical History History ICD Code Diabetic type 2 Hypertension Hypercholesterolemia Cataracts Osteoporosis Arthritis Anemia Back,Hip,and Knee pain Joint implants/screws Shoulder pain Iron Deficiency Anemia (GLADYS) Vitamin D deficiency osteoarthritis knee Vitamin B12 deficiency Surgical History Surgery Date(Month/Year) appendectomy hemorrhoidectomy total knee arthroplasty 2018 tubal ligation cataract surgery Hospitalization History Reason Date(Month/Year) Chest Xray 2V 08/08/24 XRay right shoulder 08/08/24
== END 2024-11-14 13:10 | disposition home or self-care (01) ==
LOC: HO.HOS 11:29
PROVIDERS: PCP Internal Medicine; Visit Provider Physician Assistant
DX: M19.011 Primary osteoarthritis, right shoulder (principal)
CPT/HCPCS: 20610; 99213

== ENCOUNTER → 2024-11-14 11:28 | Outpatient (BNVA) | payer OTHER, SELFPAY | PROVIDERS: PCP Internal Medicine; Visit Provider Physician Assistant | DX: M19.011 Primary osteoarthritis, right shoulder (principal); I10 Essential (primary) hypertension; E78.00 Pure hypercholesterolemia, unspecified; E11.65 Type 2 diabetes mellitus with hyperglycemia; F45.8 Other somatoform disorders; J84.9 Interstitial pulmonary disease, unspecified; L30.8 Other specified dermatitis; T23.071A Burn of unspecified degree of right wrist, initial encounter; Z79.899 Other long term (current) drug therapy | CPT/HCPCS: 20610; 96127; 99212; J0665; J1100; J2003 ==

== ENCOUNTER 2024-11-14 14:01 | Outpatient (AMB) | payer OTHER, SELFPAY ==
--- NOTE | 2024-11-14 14:03 | MHC.PC.OV ---
Vital Signs 11/14/24 14:05 Height 4 ft 11 in Weight 127 lb 4 oz BMI 25.7 BP 100/48 L Blood Pressure Location Lt brachial Position Sitting Pulse 81 Pulse Source Pulse Oximeter Temp 97 F Pulse Oximetry (%) 96 Oxygen Delivery Method Room Air Intake Visit Reasons: f/u DM Watch Train Inspector Required: Yes Watch Train Inspector Name: daugther in law Accompanied by: Self / Same As Patient Allergies beet (BEET) Allergy (Severe, Verified 11/14/24 14:24) THROAT SWELLING carrot (CARROT) Allergy (Severe, Verified 11/14/24 14:24) THROAT SWELLING plantain (PLANTAIN) Allergy (Severe, Verified 11/14/24 14:24) THROAT SWELLING ARI Inhibitors (ARI INHIBITORS) Adverse Reaction (Intermediate, Verified 11/14/24 14:24) Cough simvastatin (SIMVASTATIN) Adverse Reaction (Intermediate, Verified 11/14/24 14:24) Muscle Pain ZULMA FRUIT Allergy (Severe, Uncoded 11/14/24 14:24) THROAT SWELLING SEASONAL ALLERGIES Allergy (Intermediate, Uncoded 11/14/24 14:24) ITCHY EYES, RUNNY NOSE Medication List - Last Reconciled 11/14/24 by Birgit Burciaga PA-C amlodipine 5 mg PO DAILY 90 days ascorbate calcium (vitamin C) 500 mg PO DAILY [Bedside commode [facility] 5feet weight 132lbs] blood sugar diagnostic test 3 times a day after surgery blood sugar diagnostic ([employer] Ultra Test strips) As directed check the blood sugar twice a day carbamide peroxide 6.5% (Debrox) 5 drps otic (ear) left DAILY 4 days diclofenac sodium 1% 4 grams topical QID 30 days epinephrine (EpiPen 2-El) 0.3 mg (0.3 mL) IM Q10M PRN ferrous sulfate 325 mg PO DAILY fexofenadine (Angeline Allergy) 180 mg PO DAILY fluticasone propionate 50 mcg/actuation 1 spray intranasal BID gabapentin 100 mg PO BEDTIME glimepiride 2 mg PO QAM lancets 3x's per day after surgery lancets As directed check the blood sugar twice .day lidocaine 5% 1 patch topical DAILY losartan 50 mg PO DAILY metformin 1,000 mg PO BID 90 days pravastatin 20 mg PO DAILY Tobacco use date assessed: 11/14/24 Fall risk assessment: No Falls in past year Last assessed Fall Risk: 11/14/24 Dental Screening Dental Screen Date: 11/14/24 Did you have a dental visit in the last 12 months?: Yes Did you have a dental problem in the last 6 months where you did not have access to dental care?: No Was dental information given to patient?: Patient has dentist HPI f/u DM HPI Details 79-year-old female with past medical history of hypercholesterolemia, diabetes mellitus, hypertension and diabetic neuropathy last seen 07/2024 coming in for follow up. Presenting with complaints of left ear pain. The ear pain has been present for the last few days, with no relief after wax has been removed Examination revealed no cerumen impaction, and the eardrum appeared normal. The reported pain is more localized over the TMJ suggesting possible bruxism and nocturnal teeth clenching. A recent x-ray showed chronic interstitial lung disease that was not present in 2021 recommending pulmonology referral which has been placed today. She does not experience any symptoms at this time. She does also report diffuse itchiness of the skin that comes and goes. No recent change in detergents perfumes or lotions. [facility] Medical History Iron deficiency anemia Anemia Age-related osteoporosis without current pathological fracture Cataract Hypercholesterolemia Vitamin D deficiency Knee osteoarthritis Vitamin B12 deficiency Type 2 diabetes mellitus with hyperglycemia Osteoporosis Patient speaks only a foreign language Arthritis HTN (hypertension) Surgical History History of bilateral cataract extraction H/O colonoscopy History of total knee arthroplasty History of hemorrhoidectomy History of tubal ligation History of appendectomy Family History Father No problems noted. Mother No problems noted. Brother No problems noted. Son No problems noted. Son No problems noted. Daughter No problems noted. Sister No problems noted. Sister No problems noted. Sister No problems noted. 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 1. Little interest or pleasure in doing things: several days 2. Feeling down, depressed, or hopeless: not at all 3. Trouble falling or staying asleep, or sleeping too much: several days 4. Feeling tired or having little energy: several days 5. Poor appetite or overeating: not at all 6. Feeling bad about yourself - or that you are a failure or have let yourself or your family down: not at all 7. Trouble concentrating on things, such as reading the newspaper or watching television: not at all 8. Moving or speaking so slowly that other people could have noticed. Or the opposite - being so fidgety or restless that you have been moving around a lot more than usual: several days 9. Thoughts that you would be better off or of hurting yourself in some way: not at all Total score: 4 Depression Screening Interpretation: Negative Depression Screening Done: Yes 54452 - PHQ-9 Billing: Yes Source: Developed by Drs. Stevo Felix, Yaneth Maldonado, Santy Mcintosh and colleagues, with an educational roxana from [employer]. Thrive Questionnaire Date Thrive assessed: 04/06/24 I am a: Parent/Caregiver What is your living situation today?: I choose not to answer this question Within the past 12 months, did the food you bought not last and you didn't have the money to get more?: I choose not to answer this question Within the past 12 months, did you worry whether your food would run out before you got money to buy more?: I choose not to answer this question Do you have trouble paying for medicines?: I choose not to answer this question Do you have trouble getting transportation to medical appointments?: I choose not to answer this question Do you have trouble paying your heating and electricity bill?: I choose not to answer this question Do you have trouble taking care of your child, family member or friend?: I choose not to answer this question Do you have trouble with day-to-day activities such as bathing, preparing meals, shopping, managing finances, etc.?: I choose not to answer this question Are you currently unemployed and looking for a job?: I choose not to answer this question Are you interested in more education?: I choose not to answer this question Please select the resources that you would like help with: None Currently or been in a relationship where the following occur: I choose not to answer THRIVE Score: 0 AUDIT C Alcohol Use Questionnaire (AUDIT-C) 1. How often do you have a drink containing alcohol?: Never Total Score: 0 JENNY-7 AMB Questionnaire JENNY-7 Date JENNY - 7 assessed: 04/06/24 Feeling nervous, anxious, or on edge: 1 = Several days Not being able to stop or control worryin = Several days Worrying too much about different things: 1 = Several days Trouble relaxin = More than half the days Being so restless that it is hard to sit still: 2 = More than half the days Becoming easily annoyed or irritable: 0 = Not at all Feeling afraid as if something awful might happen: 0 = Not at all Total JENNY-7 score (0-4 normal; 5-9 mild; 10-14 moderate; 15-21 severe): 7 Source: Developed by Drs. Stevo Felix, Yaneth Maldonado, Santy Mcintosh and colleagues, with an educational roxana from [employer]. JENNY-7 Assessment Billing JENNY-7 Assessment Tool: JENNY-7 Assessment 77059 Review of Systems Const Denies body aches, Denies chills, Denies fever(s), Denies headache(s) and Denies poor appetite Eyes Reports no additional complaints ENT Denies dysphagia, Denies dizziness, Denies headache(s) and Denies odynophagia Card Denies chest pain, Denies syncope, Denies edema, Denies irregular heart rhythm, Denies lightheadedness and Denies dyspnea Resp Denies cough and Denies dyspnea GI Denies abdominal pain, Denies constipation, Denies dysphagia, Denies diarrhea, Denies nausea, Denies odynophagia and Denies vomiting Reports no additional complaints Musc Reports no additional complaints and Denies abnormal gait Skin/Breast Reports system reviewed and no additional complaints, except as documented Neuro Denies abnormal gait, Denies dizziness, Denies syncope and Denies headache(s) Psych Reports no additional complaints Physical exam (Primary Care) Vital Signs: Last Vital Signs Temp 97 F 11/14/24 14:05 Pulse 81 11/14/24 14:05 BP 100/48 L 11/14/24 14:05 Pulse Ox 96 11/14/24 14:05 Oxygen Delivery Method Room Air 11/14/24 14:05 BMI result Body Mass Index 25.7 Tobacco/Smoking Status: Tobacco use Status Tobacco use date assessed 11/14/24 11/14/24 14:20 Patient Tobacco Use Status Never used Tobacco 11/14/24 14:20 Tobacco use type Cigarette 11/14/24 14:20 e-Cigarette/Vaping Use Never Used 11/14/24 14:20 PHQ-9: PHQ-9 Score PHQ-9: Total score 4 11/14/24 14:28 Depression Screening Interpretation: Negative Thrive Assessment: Date of Thrive Assessment Date Thrive assessed 04/06/24 11/14/24 14:20 Currently or been in a relationship where the following occur: I choose not to answer Const General: cooperative, healthy appearing, comfortable and no acute distress Orientation/consciousness: patient oriented x3 HENMT Head: Yes normocephalic Ears: hearing grossly normal bilaterally, TM's normal bilaterally and EAC's normal General nose exam: Normal external nose present Eyes General: appearance normal, both eyes and all related structures Conjunctivae: conjunctivae normal Neck Neck: Yes full ROM and Yes no lymphadenopathy Resp Effort & Inspection: normal respiratory effort Auscultation: clear to auscultation bilaterally, no crackles, no rales, no rhonchi and no wheezes Cardio Rate: regular rate Rhythm: regular rhythm Skin Other: Superficial burn of the dorsal aspect of the right wrist with routine healing without open skin or evidence of infection or drainage General skin exam: no rashes or lesions noted Neuro General: patient oriented x3 Gait exam (Neuro): Normal gait present Extrem General: Yes normal to inspection, Yes full ROM and No edema Psych Affect: normal affect Attitude: cooperative Insight: Good insight present (Psych) Judgement: Good judgement present (Psych) Coding Level of Care Code Est Pt Level 3 (27473) Diagnoses Essential hypertension I10 Hypertension type: essential hypertension Hypercholesterolemia E78.00 Type 2 diabetes mellitus with hyperglycemia, without long-term current use of insulin E11.65 Diabetes mellitus meterman insulin use: without nursing home use Bruxism F45.8 Interstitial lung disease J84.9 Pruritic dermatitis L30.8 Superficial burn T30.0 Additional Codes JENNY-7 Assessment Billing - JENNY-7 Assessment Tool: JENNY-7 Assessment 65086 ([id number]) PHQ-9 - 11410 - PHQ-9 Billing: Yes ([id number]) Assessment & Plan Assessment & Plan (1) HTN (hypertension): Code(s): I10 - Essential (primary) hypertension Category: Medical Qualifiers: Hypertension type: essential hypertension Qualified Code(s): I10 - Essential (primary) hypertension Plan: Continue on current blood pressure medication. Avoid salt intake and encourage healthy diet and regular exercise. (2) Hypercholesterolemia: Code(s): E78.00 - Pure hypercholesterolemia, unspecified Category: Medical Plan: Avoid foods that are high in cholesterol such as red meat, fried foods, eggs and baked goods. Triglyceride goal of less than 150 and LDL goal of less than 100. Continue on Pravastatin 20. (3) Type 2 diabetes mellitus with hyperglycemia: Comment: Dr. Trejo Code(s): E11.65 - Type 2 diabetes mellitus with hyperglycemia Category: Medical Qualifiers: Diabetes mellitus nursing home insulin use: without nursing home use Qualified Code(s): E11.65 - Type 2 diabetes mellitus with hyperglycemia Plan: Decrease the amount of carbohydrates such as pasta, bread, rice, and potatoes and limit the amount of sweets. Although fruits are generally healthy they should be eaten in moderation as they are still high in sugar. Hemoglobin A1c goal of less than 7%. A1c at goal today continue on current medication (4) Bruxism: Code(s): F45.8 - Other somatoform disorders Category: Medical Plan: For TMJ pain and possible teeth clenching recommend night mouth guard. Patient to follow up if symptoms worsen or do not improve (5) Interstitial lung disease: Code(s): J84.9 - Interstitial pulmonary disease, unspecified Category: Medical Plan: For x-ray finding of interstitial lung disease recommend pulmonology referral which has been placed today (6) Pruritic dermatitis: Code(s): L30.8 - Other specified dermatitis Category: Medical Plan: For skin itching recommended use of Amlactin and avoiding heavily stented perfumes, lotions, detergents, body wash. Patient to switch to free and Clear detergents and continue with antihistamine. Referral was also placed to precision dyer today (7) Superficial burn: Code(s): T30.0 - Burn of unspecified body region, unspecified degree Category: Medical Plan: Patient has a superficial burn of the right wrist from cooking and is requesting cream and prescription has been sent for Neosporin burn cream. No areas of open skin and no concern for infection at this time Plan During the visit, we discussed the management of the patient's left ear pain, which may be related to temporomandibular joint disorder. A prison guard was recommended to alleviate symptoms. We also reviewed the patient's chronic interstitial lung disease, and a referral to pulmonology was planned for further evaluation. The patient was advised to continue using allergy medication for pruritus, and amlactin lotion was recommended for dry skin. A referral to an precision dyer was also discussed. The patient's diabetes mellitus is well-controlled with an A1c of 6.2, and continued monitoring was advised. This note was constructed using voice recognition software. While every effort has been made to ensure accuracy and supervisor water softener service, still areas may have been included sometimes these areas may affect the content or meeting of the given symptoms. Total time spent caring for the patient today was 20 minutes. This includes time spent before the visit reviewing the chart, time spent during the visit, and time spent after the visit and documentation. Patient was informed and verbally consented to the use of an ambient scribe for clinic note documentation during this visit. Orders: Orders Vitamin D 25-OH Total Today E11.65 - Type 2 diabetes mellitus with hyperglycemia, Z13.21 - Encounter for screening for nutritional disorder Complete Blood Count Auto Diff Today E11.65 - Type 2 diabetes mellitus with hyperglycemia, Z00.00 - Encounter for general adult medical examination without abnormal findings Comprehensive Met. Panel Today E11.65 - Type 2 diabetes mellitus with hyperglycemia, Z00.00 - Encounter for general adult medical examination without abnormal findings Lipid Panel Today E78.00 - Pure hypercholesterolemia, unspecified TSH reflex Free T4 Today E11.65 - Type 2 diabetes mellitus with hyperglycemia, Z13.29 - Encounter for screening for other suspected endocrine disorder Vitamin B12 and Folate Today E11.65 - Type 2 diabetes mellitus with hyperglycemia, Z13.21 - Encounter for screening for nutritional disorder Microalbumin, Random (w Creat) Today E11.65 - Type 2 diabetes mellitus with hyperglycemia, E11.9 - Type 2 diabetes mellitus without complications Referrals Pulmonology Referral J84.9 - Interstitial pulmonary disease, unspecified Allergy & Immunology Referral L30.8 - Other specified dermatitis Medications: New ptcbf-tqsed-iygsrtr-pramoxine 3.5-500-10,000 ly-cusz-szxr/g (Neosporin Plus Burn Relief) 1 appl topical BID 14.2 grams 0RF [mouthguard] As directed 1 ea 0RF F45.8 - Other somatoform disorders ammonium lactate 12% (AmLactin) 1 appl topical DAILY 225 grams 1RF Refilled lidocaine 5% leave on most painful area for up to 12 hrs 1 patch topical DAILY 15 ea 1RF
[2024-11-14 14:05] VITALS: BP 100/48; PULSE 81; TEMP 36.1; O2SAT 96; BMI 25.7
== END 2024-11-14 14:53 | disposition home or self-care (01) ==
LOC: HO.HMCH 14:02
PROVIDERS: PCP Internal Medicine
DX: I10 Essential (primary) hypertension (principal); E11.65 Type 2 diabetes mellitus with hyperglycemia; J84.9 Interstitial pulmonary disease, unspecified; E78.00 Pure hypercholesterolemia, unspecified; F45.8 Other somatoform disorders; L30.8 Other specified dermatitis; T23.071A Burn of unspecified degree of right wrist, initial encounter

== ENCOUNTER 2024-12-20 15:12 | Outpatient (AMB) | payer OTHER, SELFPAY ==
--- OUTSIDE RECORDS SUMMARY | 2024-07-26 06:00 | XMS_ITS ---
Author Organization [facility] Address [address] [place] [address] Care Team Providers Care Heeler Machine Name Role Phone Johnathan Mcginnis Primary Care Provider UnavailBoubacar Orta Unavailable [phone] Encounters Encounter Location Date Provider Diagnosis [address] [address] 07/26/2024 Boubacar Allred Plan Of Treatment Next Appt Details Provider Name:Boubacar Allred , 01/30/2025 01:30:00 PM, [address] [place] [address], [phone], Progress Notes * Kymberly MALONEArnoldOB: 4 (79 yo F)Acc No.[id number]:07/26/2024 Progress Notes Patient: Edgar ESPANA Provider: Karthik Allred DPM :1945 A ge:79 Y S ex:Female Date:07/26/2024 Address:[address] [place], [place] [id number] Pcp:Johnathan Mcginnis Subjective: * Chief Complaints: * [...] 07/26/2024 Generated for Erik moyer/Radha/Los on: 1 04:35 PM EDT
--- OUTSIDE RECORDS SUMMARY | 2024-10-15 10:00 | XMS_ITS ---
Author [facility] Address [address] [place] [address] Care Team Providers Care Synthetic Gem Press Operator Name Role Phone Johnathan Mcginnis Primary Care Provider Unavailabl Boubacar Addison Unavailable [phone] Encounters Encounter Location Date Provider Diagnosis [address] [address] 10/15/2024 Boubacar Allred Plan Of Treatment Next Appt Details Provider Name:Boubacar Allred , 01/30/2025 01:30:00 PM, [address] [place] [address], [phone], Progress Notes * MALONEGlorai VAZQUEZVenusOB: 4 (79 yo F)Acc No.[id number]:10/15/2024 Progress Notes Patient: Edgar ESPANA Provider: Karthik Allred DPM :1945 A ge:79 Y S ex:Female Date:10/15/2024 Address:[address] [place], [place] [id number] Pcp:Johnathan Mcginnis Subjective: * Chief Complaints: * * Medical History: Objective: * Vitals: Assessment: Plan: * Treatment: * Images: * The named appointment provid er may or may not be the originator of this progress note, and it is not deemed complete until electronically signed by the appointment provider. Sign off status: Pending * Provider: Karthki Allred DPM Date: 0 10/15/2024 Generated for Erik moyer/Radha/Los on: 1 04:35 PM EDT
--- NOTE | 2024-12-20 15:32 | A.OFFVIS_ITS ---
Vital Signs 12/20/24 15:34 Height 4 ft 11 in Weight 128 lb 15.527 oz BMI 26.0 BP 118/58 L Blood Pressure Location Lt brachial Position Sitting Pulse 75 Pulse Source Pulse Oximeter Pulse Oximetry (%) 97 Oxygen Delivery Method Room Air Intake Visit Reasons: Interstitial pulmonary disease Intake Note: pt is here as a new patient and states she does have a wheeze on and off also a cough on/off congested no phlegm. Acute Dialysis Registered Nurse Required: No Acute Dialysis Registered Nurse Services: Acute Dialysis Registered Nurse Offered & Declined Proposal Manager: Proposal Manager offered & declined Allergies beet (BEET) Allergy (Severe, Verified 12/20/24 16:03) THROAT SWELLING carrot (CARROT) Allergy (Severe, Verified 12/20/24 16:03) THROAT SWELLING plantain (PLANTAIN) Allergy (Severe, Verified 12/20/24 16:03) THROAT SWELLING ARI Inhibitors (ARI INHIBITORS) Adverse Reaction (Intermediate, Verified 12/20/24 16:03) Cough simvastatin (SIMVASTATIN) Adverse Reaction (Intermediate, Verified 12/20/24 16:03) Muscle Pain ZULMA FRUIT Allergy (Severe, Uncoded 12/20/24 16:03) THROAT SWELLING SEASONAL ALLERGIES Allergy (Intermediate, Uncoded 12/20/24 16:03) ITCHY EYES, RUNNY NOSE Medication List - Last Reconciled 12/20/24 by Eloina Knox MD amlodipine 5 mg PO DAILY 90 days ammonium lactate 12% (AmLactin) 1 appl topical DAILY ascorbate calcium (vitamin C) 500 mg PO DAILY [Bedside commode [facility] 5feet weight 132lbs] blood sugar diagnostic test 3 times a day after surgery blood sugar diagnostic (Scion GlobalTouch Ultra Test strips) As directed check the blood sugar twice a day carbamide peroxide 6.5% (Debrox) 5 drps otic (ear) left DAILY 4 days diclofenac sodium 1% 4 grams topical QID 30 days epinephrine (EpiPen 2-El) 0.3 mg (0.3 mL) IM Q10M PRN ferrous sulfate 325 mg PO DAILY fexofenadine (Angeline Allergy) 180 mg PO DAILY PRN fluticasone propionate 50 mcg/actuation 1 spray intranasal BID gabapentin 100 mg PO BEDTIME glimepiride 2 mg PO QAM lancets 3x's per day after surgery lancets As directed check the blood sugar twice .day lidocaine 5% 1 patch topical DAILY losartan 50 mg PO DAILY metformin 1,000 mg PO BID 90 days [mouthguard As directed] ldjdx-qmttc-bdzcyfi-pramoxine 3.5-500-10,000 yr-jder-ctbn/g (Neosporin Plus Burn Relief) 1 appl topical BID pravastatin 20 mg PO DAILY Do you need a note to return to daycare/school/sports/work: No HPI HPI Interstitial pulmonary disease: Details: THIS PATIENT IS 79 YEARS OLD FEMALE ORIGINALLY FROM [facility], LIVES HERE WITH HER SON AND RIRCVHAH-PI-ZIA , WHO MANAGE A MOTEL . SHE HAS PREVIOUS DIAGNOSIS OF DIABETES MELLITUS, MILD PERIPHERAL NEUROPATHY, MILD HYPERTENSION, AND SEASONAL NASAL ALLERGIES. SHE IS NONSMOKER . AT ONE TIME SHE HAD MENTIONED ABOUT MILD INTERMITTENT COUGH, AND WAS REFERRED FOR CHEST X-RAY. CHEST X-RAY PERFORMED ON 09/14/2024. WAS READ SHOWING CHRONIC INTERSTITIAL LUNG DISEASE. THE PATIENT DENIES ANY ONGOING COUGH AT PRESENT AND SHE ALSO DENIES SHORTNESS OF BREATH . SHE COMPLAINS OF OCCASIONAL NASAL CONGESTION AND AT THAT TIME SHE HAS SOME COUGH WITH LITTLE WHEEZE. . [facility] Medical History Iron deficiency anemia Anemia Age-related osteoporosis without current pathological fracture Cataract Hypercholesterolemia Vitamin D deficiency Knee osteoarthritis Vitamin B12 deficiency Type 2 diabetes mellitus with hyperglycemia Osteoporosis Patient speaks only a foreign language Arthritis HTN (hypertension) Surgical History History of bilateral cataract extraction H/O colonoscopy History of total knee arthroplasty History of hemorrhoidectomy History of tubal ligation History of appendectomy Family History Father No problems noted. Mother No problems noted. Brother No problems noted. Son No problems noted. Son No problems noted. Daughter No problems noted. Sister No problems noted. Sister No problems noted. Sister No problems noted. 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 Cognitive needs: No Hearing needs: No Vision needs: No Review of Systems Const All systems reviewed & are unremarkable except as noted in HPI and below Eyes Reports no additional complaints ENT Reports nasal congestion (SHE HAS MILD CHRONIC NASAL CONGESTION WHICH FLARES UP DURING ALLERGY SEASON) Card Denies irregular heart rhythm and Denies leg edema Resp Reports as per HPI GI Reports no additional complaints Reports no additional complaints Musc Reports no additional complaints Skin/Breast Reports system reviewed and no additional complaints, except as documented Neuro Reports paresthesias (MILD IN LEGS / MILD PERIPHERAL NEUROPATHY) Psych Reports no additional complaints Endo Reports other (DIABETES MELLITUS) Douglas/Lymph Reports no additional complaints Aller/Immun Reports no additional complaints Physical Exam Vital Signs: Last Vital Signs Pulse 75 12/20/24 15:34 BP 118/58 L 12/20/24 15:34 Pulse Ox 97 12/20/24 15:34 Oxygen Delivery Method Room Air 12/20/24 15:34 BMI result Body Mass Index 26.0 Const General: healthy appearing, comfortable, no acute distress, alert and awake Orientation/consciousness: patient oriented x3 HEENT Head: Yes normal to inspection General nose exam: No nasal polyps present and No nasal discharge present Face and sinus: Yes sinuses nontender Mouth: oropharynx normal Throat: Yes posterior oropharynx normal Eyes General: appearance normal, both eyes and all related structures Neck Neck: Yes normal visual inspection, Yes no lymphadenopathy, Yes trachea midline and Yes no JVD Thyroid: Thyroid normal Chest Chest palpation & inspection: normal inspection of the chest, normal palpation of entire chest wall and no tenderness Resp Other: CHEST IS SYMMETRICAL. PERCUSSION NOTE RESONANT ON BOTH SIDES. SHE HAS GOOD BREATH SOUNDS ON BOTH SIDES, NO WHEEZES RHONCHI OR CREPITATIONS ARE HEARD. Cardio Palpation: normal PMI Rate: regular rate Rhythm: regular rhythm Heart sounds: no gallops and no murmurs Peripheral pulses: Peripheral pulses 2+ throughout GI Palpation (GI): Soft to palpation, nontender, No hepatosplenomegaly present and no masses Auscultation: normal bowel sounds Back/Spine/Pelvis Thoracic/Lumbar Spine: thoracic and lumbar spine normal to inspection Skin General skin exam: no rashes or lesions noted Neuro General: patient oriented x3 and no focal motor deficits Cranial nerves: Yes CN's II-XII intact bilaterally Extrem General: Yes normal to inspection, Yes no clubbing, cyanosis or edema and Yes no calf tenderness Psych Appearance: grossly normal and well kempt Speech and movement: Normal speech and movement present Results Reviewed Results Reviewed: CHEST XRAY 09/14 IMPRESSION: Chronic interstitial lung disease without acute airspace disease. Stable chest. Assessment & Plan Assessment & Plan (1) Cough: Comment: PATIENT HAS PERIODIC BOUTS OF COUGH, NOT ON A STEADY ARE CONTINUOUS BASIS. USUALLY RELATED TO ALLERGIC RHINITIS. Code(s): R05.9 - Cough, unspecified Category: Medical Plan: CHEST X-RAY , QUESTION OF INTERSTITIAL LUNG DISEASE, NEEDS TO BE CONFIRMED OR RULED OUT. (2) Interstitial lung disease: Comment: IT IS JUST RADIOLOGIC FINDING, CLINICALLY I DO NOT THINK SHE HAS ANY SIGNIFICANT INTERSTITIAL LUNG DISEASE OR PULMONARY FIBROSIS. Code(s): J84.9 - Interstitial pulmonary disease, unspecified Category: Medical Plan: TO CONFIRM OR RULE OUT SHE NEEDS A CT SCAN OF THE CHEST WHICH IS BEING ORDERED IN THE MEANTIME I HAVE REASSURED THE PATIENT AND HER DAUGHTER IN-LAW THAT I DO NOT THINK HE HAS AN ACTIVE LUNG DISEASE. (3) Allergic rhinitis: Comment: CHRONIC NONSPECIFIC ALLERGIC RHINITIS USUALLY FLARES UP WITH THE CHANGE IN THE SEASON, OR IF SHE HAS A VIRAL ILLNESS. Code(s): J30.9 - Allergic rhinitis, unspecified Category: Medical Plan: CONTINUE TO USE FEXOFENADINE 180 MG ONCE A DAY P.R.N. AND ALSO FLONASE SPRAY 1 SPRAY EACH NOSTRIL B.I.D. PRN. Orders: Orders CT chest wo IV con Today Eloina Knox MD J84.9 - Interstitial pulmonary disease, unspecified, R05.9 - Cough, unspecified Medications: Changed From fexofenadine (Angeline Allergy) 180 mg PO DAILY 90 tabs 0RF J30.9 - Allergic rhinitis, unspecified To fexofenadine (Angeline Allergy) 180 mg PO DAILY PRN J30.9 - Allergic rhinitis, unspecified Johnathan Mcginnis MD Coding Level of Care Code New Pt Level 3 (45056) Diagnoses Cough R05.9 Interstitial lung disease J84.9 Allergic rhinitis J30.9
[2024-12-20 15:34] VITALS: BP 118/58; PULSE 75; O2SAT 97; BMI 26.0
--- OUTSIDE RECORDS SUMMARY | 2024-12-20 16:35 | XMS_ITS | Encounter Summary ---
Author Organization [facility] Address [address] [place] [address] [place] [address] Phone Care Team Providers Care Tub Chucker Name Role Phone Johnathan Mcginnis MD Primary Care Provider [phone] Reason for Referral * Physical Therapy (Routine) - Closed Specialty Diagnoses / Procedures Referred By Radha haider Referred To Contact Physical Therapy Diagnoses Encounter for rehabilitation System, Provider Not In, [facility] [id number] [place] [address] Phone: tel: Referral ID Status Reason Start Date Expiration Date Visits Re quested Visits Authorized [id number] Closed 02/24/2018 02/24/2019 20 20 Encounter Details Date Type Department Care Team (Latest Contact Info) Description 02/24/2018 Transcribe Orders [facility] [address] [place] [address] Harman Rivas PA [address] [place] [address] Encounter for rehabilitation (Primary Dx) Social History [...] Date/Time Associated Diagnosis Comments AMB REFERRAL TO [facility] PHYSICAL THERAPY Routine 03/27/2018 12:59 PM EST Encounter for rehabilitation documented in this encounter Results * Ambulatory referral to [facility] Physical Therapy (03/27/2018 12:59 PM EST) us Provider Not In System PhD [facility]B [facility] REFERRALS Fin al Result documented in this encounter Visit Diagnoses Diagnosis Encounter for rehabilitation- Primary documented in this encounter Care Teams Tub Chucker Relationship Specialty Start Date End Date Johnathan Mcginnis MD [address] [place] [phone] PCP - General Internal Medicine 02/24/18 documented as of this encounter Additional Source Comments The information contained in this document represents components of the legal health record. It is not the complete legal health record.[facility]
--- OUTSIDE RECORDS SUMMARY | 2024-12-20 16:35 | XMS_ITS | Clinical Summary ---
Author Organization [employer] Address [address] [facility] 7t [place] [address] Care Team Providers Care Funeral Home Manager Name Role Phone Unavailable Primary Care Provider [...] COVID-19 Vaccine ( - 2023-2 5 season) 2024 Influenza Vaccine (#1) 2024 HIB Vaccines Aged [...]
--- OUTSIDE RECORDS SUMMARY | 2024-12-20 16:35 | XMS_ITS | Encounter Summary ---
Author Organization [employer] Address [address] [place] [address] 7 [place] [address] Care Team Providers Care Regional Psychiatric Director Name Role Phone Unavailable Primary Care Provider Unavailabl e Reason for Visit * Reason Comments Med Refill Encounter Details Date Type Department Care Team (Late st Contact Info) Description 03/23/2023 Refill C [facility] [address] [place], [place] [phone] Salud Marley BDS [address] [place], [place] [phone] Tooth pain Social History Tobacco Use Types [...]
--- OUTSIDE RECORDS SUMMARY | 2024-12-20 16:35 | XMS_ITS | Clinical Summary ---
Author Organization [facility] Address [address] [place] [address] [place] [address] Phone Care Team Providers Care Elder Counselor Name Role Phone Johnathan Mcginnis MD Primary Care Provider [phone] Social History Tobacco Use Types Packs/Day Years [...] and SMOKELESS TOBACCO SCREENING 01/17/1957 OSTEOPOROSIS SCREENING INITIAL (ONE-TIME) 01/17/2009 PNEUMOCOCCAL VACCINES (50+ years) (2 of 2 - PCV) 01/26/2017 01/27/2016 RSV VACCINE (1 - 1-dose 75+ series) 01/17/2019 INFLUENZA VACCINE (#1) 2024 , 01/23/2019, 01/03/2018, Additional history exists COVID-19 VACCINE ( - season) 2024 05/05/2020, 04/14/2020 ZOSTER VACCINES Completed 02/07/2020, 11/22/2019 [...] Devices Not on file Insurance MEDICARE [place] [address] [place] [address] MEDICARE REPLACEMENT [employer] MEDICARE REPLACEMENT [place] [facility] [place] MEDICARE REPLACEMENT [place] [facility] SNP MEDICARE REPLACEMENT [facility] SNP MEDICARE REPLACEMENT Care Teams Elder Counselor Relationship Specialty Start Date End Date Johnathan Mcginnis MD [address] [place] [phone] PCP - General Internal Medicine 02/24/18 Additional Source Comments The information contained in this document represents components of the legal health record. It is not the complete legal health record.[facility]
--- OUTSIDE RECORDS SUMMARY | 2024-12-20 16:35 | XMS_ITS | Patient Health Record ---
Author Organization [facility]andra [facility] Address [address] [place] [address] Care Team Providers Care Manager Resort Name Role Phone Johnathan Mcginnis Primary Care Provider Boubacar Black Unavailable [phone] Allergies Allergen (clinical drug ingredient) Drug/Non Drug [...] diabetes cheryl itus with hyperglycemia, unspecified whether precision grinder external insulin use (E11.65) Referring Provider First Name Johnathan Referring Provider Last Name [facility] Referred Provider Boubacar Allred Referred Address [address] [place], [place],[address], Referred Provider Specialty Podiatry Referral Priority Routine [...] Problem Acquired hammer toe of right foot ([id number] ) Other hammer toe(s) (acquired), right foot (M20.41) Active confirmed Problem Acquired hammer toe of left foot (1712087723259471 ) Other hammer toe(s) (acquired), left foot (M20.42) Active confirmed Problem Polyneuropathy due to type 2 diabetes mellitus (364683652) Type 2 diabetes mellitus with diabetic polyneuropathy (E11.42) Active confirmed Vital Signs Height 4 ft 10 in in 10/15/2024 Weight 130 lbs 10/15/2024 BMI 27.17 kg/m2 10/15/2024 Procedures Procedure Date Ordered Date Performed Result Body Sit e 41527-LBFJABU NAIL, 6 OR MORE 10/15/2024 N/A 85303-GWFQ SKIN LESIONS, OVER 4 10/15/2024 N/A Encounters Encounter Location Date [facility] [address] 10/15/2024 Boubacar Allred Type 2 diabetes mellitus with diabetic polyneuropathy E11.42 ; Tinea unguium B35.1 ; Other hammer toe(s) (acquired), right foot M20.41 and Other hammer toe(s) (acquired), left foot M20.[address] [address] 07/16/2024 Boubacarananya Alonzoier Assessments Encounter Date Diagnosis [...] X ray : Foot, right 3V 12/23/2020 74628-PUTQCIR NAIL, 6 OR MORE 10/15/2024 07093-NYGR SKIN LESIONS, OVER 4 10/16/19 25 98282-EFVK SKIN LESIONS, 2 TO 4 12/24/19 21 Next Appt Details Provider Name:Boubacar Allred , 01/30/2025 01:30:00 PM, [address] [place] [address], [place], [address], Insurance Providers Payer Name Payer Address Payer Phone Subscriber Number Group Number Insured Name Patient Relationship to Insured Coverage Start Date Coverage End Date [facility] [address] [place] [phone] [id number] Edgar Malone Self - patient is the [...]
== END 2024-12-20 15:29 | disposition home or self-care (01) ==
LOC: HO.HPS 15:13
PROVIDERS: PCP Internal Medicine; Visit Provider Internal Medicine
DX: R05.9 Cough, unspecified (principal); J84.9 Interstitial pulmonary disease, unspecified; J30.9 Allergic rhinitis, unspecified
CPT/HCPCS: 99203

== ENCOUNTER → 2024-12-20 15:12 | Outpatient (BNVA) | payer OTHER, SELFPAY | PROVIDERS: PCP Internal Medicine; Visit Provider Internal Medicine | DX: J30.9 Allergic rhinitis, unspecified (principal); J84.9 Interstitial pulmonary disease, unspecified; R05.1 Acute cough | CPT/HCPCS: 99202 ==

== ENCOUNTER 2024-12-25 08:19 | Outpatient (REF) | payer OTHER, SELFPAY ==
--- OUTSIDE RECORDS SUMMARY | 2024-07-26 06:00 | XMS_ITS ---
Author Organization [facility] Address [address] [place] [phone] Care Team Providers Care Regional Economist Name Role Phone Johnathan Mcginnis Primary Care Provider UnavailBoubacar Orta Unavailable [phone] Encounters Encounter Location Date Provider Diagnosis [address] [address] 07/26/2024 Boubacar Allred Plan Of Treatment Next Appt Details Provider Name:Boubacar Allred , 01/30/2025 01:30:00 PM, [address] [place] [address], [phone], Progress Notes * Kymberly MALONEArnoldOB: 4 (79 yo F)Acc No.[id number]:07/26/2024 Progress Notes Patient: Edgar ESPANA Provider: Karthik Allred DPM :1945 A ge:79 Y S ex:Female Date:07/26/2024 Address:[address] [place], [place] [id number] Pcp:Johnathan Mcginnis Subjective: * Chief Complaints: * [...] 07/26/2024 Generated for Erik moyer/Radha/Los on: 1 08:42 AM EDT
--- OUTSIDE RECORDS SUMMARY | 2024-10-15 10:00 | XMS_ITS ---
Author Organization [facility] Address [address] [place] [address] Care Team Providers Care Supervisor Wet Pour Name Role Phone Johnathan Mcginnis Primary Care Provider Unavailabl Boubacar Addison Unavailable [phone] Encounters Encounter Location Date Provider Diagnosis [address] [address] 10/15/2024 Boubacar Allred Plan Of Treatment Next Appt Details Provider Name:Boubacar Allred , 01/30/2025 01:30:00 PM, [address] [place] [address], [phone], Progress Notes * MALONEKymberly VAZQUEZArnoldOB: 4 (79 yo F)Acc No.[id number]:10/15/2024 Progress Notes Patient: Edgar ESPANA Provider: Karthik Allred DPM :1945 A ge:79 Y S ex:Female Date:10/15/2024 Address:[address] [place], [place] [phone] Pcp:Johnathan Mcginnis Subjective: * Chief Complaints: * [...] 10/15/2024 Generated for Erik moyer/Radha/Los on: 1 08:42 AM EDT
[2024-12-25 08:37] LABS: MANUAL DIFF FLAG NO
--- OUTSIDE RECORDS SUMMARY | 2024-12-25 08:42 | XMS_ITS | Clinical Summary ---
Author Organization [facility] Address [address] [place] [address] [place] [address] Phone Care Team Providers Care Editing Intern Name Role Phone Johnathan Mcginnis MD Primary Care Provider [phone] Social History Tobacco Use Types Packs/Day Years [...] Devices Not on file Insurance MEDICARE REPLAC[place] [address] MEDICARE REPLACEMENT D[employer] SNP MEDICARE REPLACEMENT [place] [facility] [place] MEDICARE REPLACEMENT [place] [facility] SNP MEDICARE REPLACEMENT [facility] SNP MEDICARE REPLACEMENT Care Teams Editing Intern Relationship Specialty Start Date End Date Johnathan Mcginnis MD [address] [place] [address] PCP - General Internal Medicine 02/24/18 Additional Source Comments The information contained in this document represents components of the legal health record. It is not the complete legal health record.[facility]
--- OUTSIDE RECORDS SUMMARY | 2024-12-25 08:42 | XMS_ITS | Encounter Summary ---
Author Organization [facility] Address [address] [place] [address] [place] [address] Phone Care Team Providers Care Head Of Measurement & Insights Name Role Phone Johnathan Mcginnis MD Primary Care Provider [phone] Reason for Referral * Physical Therapy (Routine) - Closed Specialty Diagnoses / Procedures Referred By Radha haider Referred To Contact Physical Therapy Diagnoses Encounter for rehabilitation System, Provider Not In, [facility] [id number] [place] [address] Phone: tel: Referral ID Status Reason Start Date Expiration Date Visits Re quested Visits Authorized [id number] Closed 02/24/2018 02/24/2019 20 20 Encounter Details Date Type Department Care Team (Latest Contact Info) Description 02/24/2018 Transcribe Orders [facility] [address] [place] [address] Harman Rivas PA [address] [place] [address] Encounter for rehabilitation (Primary Dx) Social History [...] Date/Time Associated Diagnosis Comments AMB REFERRAL TO [facility] PHYSICAL THERAPY Routine 03/27/2018 12:59 PM EST Encounter for rehabilitation documented in this encounter Results * Ambulatory referral to [facility] Physical Therapy (03/27/2018 12:59 PM EST) us Provider Not In System PhD [facility]B [facility] REFERRALS Fin al Result documented in this encounter Visit Diagnoses Diagnosis Encounter for rehabilitation- Primary documented in this encounter Care Teams Head Of Measurement & Insights Relationship Specialty Start Date End Date Johnathan Mcginnis MD [address] [place] [phone] PCP - General Internal Medicine 02/24/18 documented as of this encounter Additional Source Comments The information contained in this document represents components of the legal health record. It is not the complete legal health record.[facility]
--- OUTSIDE RECORDS SUMMARY | 2024-12-25 08:43 | XMS_ITS | Encounter Summary ---
Author Organization [employer] Address [address] [place] [address] 7 [place] [address] Care Team Providers Care Compressor Station Operator Name Role Phone Unavailable Primary Care Provider Unavailabl e Reason for Visit * Reason Comments Med Refill Encounter Details Date Type Department Care Team (Late st Contact Info) Description 03/23/2023 Refill C [facility] [address] [place], [place] [phone] Salud Marley BDS [address] [place], [place] [phone] Tooth pain Social History Tobacco Use Types [...]
--- OUTSIDE RECORDS SUMMARY | 2024-12-25 08:43 | XMS_ITS | Clinical Summary ---
Author Organization [employer] Address [address] [facility] 7t [place] [address] Care Team Providers Care Lead Database Administrator Name Role Phone Unavailable Primary Care Provider [...]
--- OUTSIDE RECORDS SUMMARY | 2024-12-25 08:43 | XMS_ITS | Patient Health Record ---
Author Organization [facility] Alexandra Camaraley Address [address] [place] [address] Care Team Providers Care Director Of Restaurants Name Role Phone Johnathan Mcginnis Primary Care Provider Boubacar Black Unavailable [phone] Allergies Allergen (clinical drug ingredient) Drug/Non Drug [...] diabetes cheryl itus with hyperglycemia, unspecified whether equipment operator intermodal yard insulin use (E11.65) Referring Provider First Name Johnathan Referring Provider Last Name [facility] Referred Provider Boubacar Allred Referred Address [address] [place], [place],[address], Referred Provider Specialty Podiatry Referral Priority Routine [...] Problem Acquired hammer toe of right foot ([id number] ) Other hammer toe(s) (acquired), right foot (M20.41) Active confirmed Problem Acquired hammer toe of left foot (0859907387695489 ) Other hammer toe(s) (acquired), left foot (M20.42) Active confirmed Problem Polyneuropathy due to type 2 diabetes mellitus (358396430) Type 2 diabetes mellitus with diabetic polyneuropathy (E11.42) Active confirmed Vital Signs Height 4 ft 10 in in 10/15/2024 Weight 130 lbs 10/15/2024 BMI 27.17 kg/m2 10/15/2024 Procedures Procedure Date Ordered Date Performed Result Body Sit e 72496-DTOSPZK NAIL, 6 OR MORE 10/15/2024 N/A 05644-ECEJ SKIN LESIONS, OVER 4 10/15/2024 N/A Encounters Encounter Location Date [facility] [address] 10/15/2024 Boubacar Allred Type 2 diabetes mellitus with diabetic polyneuropathy E11.42 ; Tinea unguium B35.1 ; Other hammer toe(s) (acquired), right foot M20.41 and Other hammer toe(s) (acquired), left foot M20.[address] [address] 07/16/2024 Boubacarananya Alonzoier Assessments Encounter Date Diagnosis [...] X ray : Foot, right 3V 12/23/2020 01712-DMKIMCU NAIL, 6 OR MORE 10/15/2024 21735-EOHC SKIN LESIONS, OVER 4 10/16/19 25 80786-FHIW SKIN LESIONS, 2 TO 4 12/24/19 21 Next Appt Details Provider Name:Boubacar Allred , 01/30/2025 01:30:00 PM, [address] [place] [address], [place], [address], Insurance Providers Payer Name Payer Address Payer Phone Subscriber Number Group Number Insured Name Patient Relationship to Insured Coverage Start Date Coverage End Date [facility] [address] [place] [phone] [id number] Edgar Malone Self - patient is the [...]
[2024-12-25 09:35] LABS: Hematocrit 38.6 % (37.0-47.0); Hemoglobin 12.9 g/dl (12.0-16.0); Imm Gran Abs Auto 0.03 X10*3/uL (0.00-0.03); Imm Gran Pct Auto 0.4 % (0.0-0.4); Lymphocytes Absolute Auto 2.8 X10*3/uL (1.2-4.9); Mean Corpuscular HGB Conc 33.4 g/dl (31.0-35.0); Mean Corpuscular Hemoglobin 29.1 pg (27.0-33.0); Mean Corpuscular Volume 86.9 fL (80.0-98.0); NRBC Abs Auto 0.000 X10*3/uL (0.0-0.012); NRBC Pct Auto 0.0 /100WBC (0.0-0.2); Platelet Count 261 X10*3/uL (160-400); Red Blood Count 4.44 X10*6/uL (4.20-5.50); White Blood Count 6.9 X10*3/uL (4.8-10.8)
[2024-12-25 10:20] LABS: Alanine Aminotransferase 19 U/L (0-31); Albumin Level 4.5 g/dL (3.5-5.0); Alkaline Phosphatase 40 U/L (39-117); Anion Gap 13 (12-20); Aspartate Amino Transferase 26 U/L (5-31); Blood Urea Nitrogen 9 mg/dL (9-16); Calcium 10.1 mg/dL (8.4-10.2); Carbon Dioxide 31 mmol/L (22-29); Chloride 104 mmol/L (96-108); Cholesterol 168 mg/dL (<200); Estimated Glomerular Filt Rate > 60; HDL Cholesterol 40 mg/dL (>40); Potassium 4.8 mmol/L (3.3-5.1); Sodium 143 mmol/L (135-145); Total Protein 7.3 g/dL (6.5-8.0); Triglycerides 121 mg/dL (<150)
[2024-12-25 10:35] LABS: Folate 9.4 ng/mL (> or = 4.0); Vitamin B12 176 pg/mL (200-900)
== END 2024-12-25 08:20 | disposition home or self-care (01) ==
LOC: HO.LAB 08:19
PROVIDERS: PCP Internal Medicine
DX: Z00.00 Encounter for general adult medical examination without abnormal findings (principal); Z13.29 Encounter for screening for other suspected endocrine disorder; Z13.21 Encounter for screening for nutritional disorder; E11.65 Type 2 diabetes mellitus with hyperglycemia; E78.00 Pure hypercholesterolemia, unspecified
CPT/HCPCS: 36415; 80053; 80061; 82043; 82306; 82570; 82607; 82746; 84443; 85025

== ENCOUNTER 2024-12-26 09:13 | Outpatient (AMB) | payer OTHER, SELFPAY ==
--- NOTE | 2024-12-26 09:14 | MHC.PC.OV ---
Vital Signs 12/26/24 09:17 Height 4 ft 11 in Weight 129 lb 6 oz BMI 26.1 BP 126/60 Blood Pressure Location Lt brachial Position Sitting Pulse 79 Pulse Source Pulse Oximeter Temp 97.1 F Temp Source Temporal Artery Scan Pulse Oximetry (%) 95 Oxygen Delivery Method Room Air Intake Visit Reasons: Annual Exam Accompanied by: daughter in law Allergies beet (BEET) Allergy (Severe, Verified 12/26/24 09:22) THROAT SWELLING carrot (CARROT) Allergy (Severe, Verified 12/26/24 09:22) THROAT SWELLING plantain (PLANTAIN) Allergy (Severe, Verified 12/26/24 09:22) THROAT SWELLING ARI Inhibitors (ARI INHIBITORS) Adverse Reaction (Intermediate, Verified 12/26/24 09:22) Cough simvastatin (SIMVASTATIN) Adverse Reaction (Intermediate, Verified 12/26/24 09:22) Muscle Pain ZULMA FRUIT Allergy (Severe, Uncoded 12/26/24 09:22) THROAT SWELLING SEASONAL ALLERGIES Allergy (Intermediate, Uncoded 12/26/24 09:22) ITCHY EYES, RUNNY NOSE Medication List - Last Reconciled 12/26/24 by Johnathan Mcginnis MD amlodipine 5 mg PO DAILY 90 days ammonium lactate 12% (AmLactin) 1 appl topical DAILY ascorbate calcium (vitamin C) 500 mg PO DAILY [Bedside commode [facility] 5feet weight 132lbs] blood sugar diagnostic test 3 times a day after surgery blood sugar diagnostic ([facility] Ultra Test strips) As directed check the blood sugar twice a day carbamide peroxide 6.5% (Debrox) 5 drps otic (ear) left DAILY 4 days diclofenac sodium 1% 4 grams topical QID 30 days epinephrine (EpiPen 2-El) 0.3 mg (0.3 mL) IM Q10M PRN ferrous sulfate 325 mg PO DAILY fexofenadine (Angeline Allergy) 180 mg PO DAILY PRN fluticasone propionate 50 mcg/actuation 1 spray intranasal BID gabapentin 100 mg PO BEDTIME glimepiride 2 mg PO QAM lancets 3x's per day after surgery lancets As directed check the blood sugar twice .day lidocaine 5% 1 patch topical DAILY losartan 50 mg PO DAILY mecobalamin (vitamin B12) (B12 Active) 1,000 mcg PO DAILY metformin 1,000 mg PO BID 90 days [mouthguard As directed] acyla-yhect-ylwompi-pramoxine 3.5-500-10,000 da-ntua-cjej/g (Neosporin Plus Burn Relief) 1 appl topical BID pravastatin 20 mg PO DAILY Tobacco use date assessed: 12/26/24 Fall risk assessment: No Falls in past year Last assessed Fall Risk: 12/26/24 Dental Screening Dental Screen Date: 12/26/24 Did you have a dental visit in the last 12 months?: Yes Did you have a dental problem in the last 6 months where you did not have access to dental care?: No Was dental information given to patient?: Patient has dentist [facility] Medical History Iron deficiency anemia Anemia Age-related osteoporosis without current pathological fracture Cataract Hypercholesterolemia Vitamin D deficiency Knee osteoarthritis Vitamin B12 deficiency Type 2 diabetes mellitus with hyperglycemia Osteoporosis Patient speaks only a foreign language Arthritis HTN (hypertension) Surgical History History of bilateral cataract extraction H/O colonoscopy History of total knee arthroplasty History of hemorrhoidectomy History of tubal ligation History of appendectomy Family History Father No problems noted. Mother No problems noted. Brother No problems noted. Son No problems noted. Son No problems noted. Daughter No problems noted. Sister No problems noted. Sister No problems noted. Sister No problems noted. 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 1. Little interest or pleasure in doing things: several days 2. Feeling down, depressed, or hopeless: not at all 3. Trouble falling or staying asleep, or sleeping too much: several days 4. Feeling tired or having little energy: several days 5. Poor appetite or overeating: not at all 6. Feeling bad about yourself - or that you are a failure or have let yourself or your family down: not at all 7. Trouble concentrating on things, such as reading the newspaper or watching television: not at all 8. Moving or speaking so slowly that other people could have noticed. Or the opposite - being so fidgety or restless that you have been moving around a lot more than usual: several days 9. Thoughts that you would be better off or of hurting yourself in some way: not at all Total score: 4 Depression Screening Interpretation: Negative Depression Screening Done: Yes Source: Developed by Drs. Stevo Felix, Yaneth Maldonado, Santy Mcintosh and colleagues, with an educational roxana from [employer]. Thrive Questionnaire Date Thrive assessed: 11/14/24 I am a: Parent/Caregiver What is your living situation today?: I choose not to answer this question Within the past 12 months, did the food you bought not last and you didn't have the money to get more?: I choose not to answer this question Within the past 12 months, did you worry whether your food would run out before you got money to buy more?: I choose not to answer this question Do you have trouble paying for medicines?: I choose not to answer this question Do you have trouble getting transportation to medical appointments?: I choose not to answer this question Do you have trouble paying your heating and electricity bill?: I choose not to answer this question Do you have trouble taking care of your child, family member or friend?: I choose not to answer this question Do you have trouble with day-to-day activities such as bathing, preparing meals, shopping, managing finances, etc.?: I choose not to answer this question Are you currently unemployed and looking for a job?: I choose not to answer this question Are you interested in more education?: I choose not to answer this question Please select the resources that you would like help with: None Currently or been in a relationship where the following occur: I choose not to answer THRIVE Score: 0 AUDIT C Alcohol Use Questionnaire (AUDIT-C) 1. How often do you have a drink containing alcohol?: Never 3. How often do you have six or more drinks on one occasion?: Never Total Score: 0 JENNY-7 AMB Questionnaire JENNY-7 Date JENNY - 7 assessed: 04/06/24 Feeling nervous, anxious, or on edge: 1 = Several days Not being able to stop or control worryin = Several days Worrying too much about different things: 1 = Several days Trouble relaxin = More than half the days Being so restless that it is hard to sit still: 2 = More than half the days Becoming easily annoyed or irritable: 0 = Not at all Feeling afraid as if something awful might happen: 0 = Not at all Total JENNY-7 score (0-4 normal; 5-9 mild; 10-14 moderate; 15-21 severe): 7 Source: Developed by Drs. Stevo Felix, Yaneth Maldonado, Santy Mcintosh and colleagues, with an educational roxana from [employer]. Review of Systems Const Denies poor appetite and Denies weakness Eyes Denies no additional complaints ENT Reports Normal hearing present, Denies dizziness, Denies nasal congestion, Denies tinnitus and Denies sore throat Card Denies chest pain, Denies syncope, Denies rapid heart rate and Denies dyspnea Resp Denies cough and Denies dyspnea GI Denies change in stool character, Reports constipation, Denies diarrhea, Denies nausea and Denies vomiting Denies urinary frequency, Denies difficulty voiding and Denies dysuria Neuro Reports Normal hearing present, Denies confusion, Denies dizziness, Denies syncope and Denies weakness Psych Denies confusion Physical exam (Primary Care) Vital Signs: Last Vital Signs Temp 97.1 F 12/26/24 09:17 Pulse 79 12/26/24 09:17 BP 126/60 12/26/24 09:17 Pulse Ox 95 12/26/24 09:17 Oxygen Delivery Method Room Air 12/26/24 09:17 Next steps: pedal pulse and pin prick good BMI result Body Mass Index 26.1 Tobacco/Smoking Status: Tobacco use Status Tobacco use date assessed 12/26/24 12/26/24 09:24 Patient Tobacco Use Status Never used Tobacco 12/26/24 09:16 Tobacco use type Cigarette 12/26/24 09:16 e-Cigarette/Vaping Use Never Used 12/26/24 09:16 PHQ-9: PHQ-9 Score PHQ-9: Total score 4 12/26/24 09:49 Depression Screening Interpretation: Negative Thrive Assessment: Date of Thrive Assessment Date Thrive assessed 11/14/24 12/26/24 09:16 Currently or been in a relationship where the following occur: I choose not to answer Const General: No confusion Orientation/consciousness: No confusion HENMT Head: Yes normocephalic Ears: external ears normal and TM's normal bilaterally Face and sinus: Yes normal facial exam Mouth: moist mucous membranes Throat: Yes tonsils normal Eyes Conjunctivae: conjunctivae normal Pupils: Equal, round and reactive pupils present and Pupil accommodation reflex normal Direct Ophthalmoscopy: normal light reflex Neck Neck: No lymphadenopathy Thyroid: Thyroid normal Chest Chest palpation & inspection: normal inspection of the chest Resp Effort & Inspection: normal respiratory effort and no audible wheezes Auscultation: clear to auscultation bilaterally, no crackles, no wheezes and lung sounds not diminished Cardio Rate: regular rate Rhythm: regular rhythm Peripheral pulses: radial pulses present and dorsalis pedis present GI Other: guaiac neg Palpation (GI): no masses Auscultation: normal bowel sounds and normoactive bowel sounds Rectal Exam - Female: deferred Skin General skin exam: no rashes or lesions noted Rashes: no rashes Neuro General: No confusion Cranial nerves: Yes Equal, round and reactive pupils present and Yes Normal hearing present Cognition (Neuro): normal cognition Gait exam (Neuro): Normal gait present Motor exam (neuro): 5/5 motor strength present throughout Deep tendon reflexes (DTR's): Right brachioradialis reflex intensity grade: 2+, Left brachioradialis reflex intensity grade: 2+, Right patellar reflex intensity grade: 2+ and Left patellar reflex intensity grade: 2+ Extrem General: No edema Office Procedures Flu Questionnaire Does the patient have a severe egg allergy?: No Does the patient have severe life threatening allergies?: No Does the patient have a fever or illness today?: No Has the patient ever had Guillain-Kinsale Syndrome?: No Has the patient ever had any past reaction to a flu shot?: No Results AMB Hemoglobin A1c AMB Hemoglobin A1c 6.1 % Last Edit by Beryl Lion CMA on 12/26/24 09:26 Immunizations Fluarix [id number] (PF) 45 mcg (15 mcg x 3)/0.5 mL IM syringe Performing Provider: Johnathan Mcginnis MD Performing Location: [facility] [place] [facility] Administered by: Beryl Lion CMA on 12/26/24 09:32 Dose Route Admin Location Dispensed Lot Number Expiration Date NDC [employer] Operator 0.5 mL IM Left Deltoid 0.5 mL [id number] 09/17/25 [id number] [employer] VIS Given Date VIS Provided VIS Publication Date 12/26/24 Single Vaccine 24 Eligibility Eligibility Date Funding Source Not [facility] Eligible 12/26/24 Private Results Reviewed Results Reviewed: Laboratory Last Values Hgb A1c (Clinic) 6.1 % (4.0-6.0) H 12/26/24 09:25 Coding Level of Care Code Est Pt Prev Care >65y(03823) Diagnoses Annual physical exam Z00.00 Type 2 diabetes mellitus with hyperglycemia, without long-term current use of insulin E11.65 Diabetes mellitus long-term insulin use: without babbitter use Essential hypertension I10 Hypertension type: essential hypertension Hypercholesterolemia E78.00 Osteopenia M85.80 Vitamin B12 deficiency E53.8 Osteoarthritis of right acromioclavicular joint M19.011 Interstitial lung disease J84.9 Hearing difficulty H91.90 Assessment & Plan Assessment & Plan (1) Annual physical exam: Code(s): Z00.00 - Encounter for general adult medical examination without abnormal findings Category: Medical Plan: Patient is advised to eat healthy, keep well hydrated, keep active and have adequate sleep. (2) Type 2 diabetes mellitus with hyperglycemia: Comment: Dr. Trejo Code(s): E11.65 - Type 2 diabetes mellitus with hyperglycemia Category: Medical Qualifiers: Diabetes mellitus babbitter insulin use: without babbitter use Qualified Code(s): E11.65 - Type 2 diabetes mellitus with hyperglycemia Plan: Decrease the amount of carbohydrate intake, pasta, bread, rice and potatoes are all sugar and that is aside from all the sweet stuff, remember that fruits are good but they are Sweet also. Hemoglobin A1c goal of less than 7.0. Patient is on glimepiride 2 mg once a day metformin a 1000 mg twice a day (3) HTN (hypertension): Code(s): I10 - Essential (primary) hypertension Category: Medical Qualifiers: Hypertension type: essential hypertension Qualified Code(s): I10 - Essential (primary) hypertension Plan: Continue with blood pressure medication. Decrease salt intake and exercise continue with losartan 50 mg once a day amlodipine 5 mg once a day (4) Hypercholesterolemia: Code(s): E78.00 - Pure hypercholesterolemia, unspecified Category: Medical Plan: Avoid fried foods, chicken skin, eggs, butter margarine, pastries and meat. Be it pork or beef they have a lot of cholesterol LDL goal of less than 100 and triglyceride of less than 150 patient is only on pravastatin 20 mg once a day (5) Osteopenia: Comment: August 2021 Code(s): M85.80 - Other specified disorders of bone density and structure, unspecified site Category: Medical Plan: Reminded about bone density (6) Vitamin B12 deficiency: Comment: Advised to take dzot-[id number] vitamin B12 1000 mcg once a day Code(s): E53.8 - Deficiency of other specified B group vitamins Category: Medical Plan: Reminded about B12 1000 mcg once a day (7) Osteoarthritis of right acromioclavicular joint: Code(s): M19.011 - Primary osteoarthritis, right shoulder Category: Medical Plan: Patient has seen Orthopedics and advised physical therapy (8) Interstitial lung disease: Comment: IT IS JUST RADIOLOGIC FINDING, CLINICALLY I DO NOT THINK SHE HAS ANY SIGNIFICANT INTERSTITIAL LUNG DISEASE OR PULMONARY FIBROSIS. Code(s): J84.9 - Interstitial pulmonary disease, unspecified Category: Medical Plan: Breathing good continues just monitor (9) Hearing difficulty: Code(s): H91.90 - Unspecified hearing loss, unspecified ear Category: Medical Plan History of Present Illness The patient is an 79-year-old female presenting for an annual wellness visit. She has a history of hypercholesterolemia, with LDL cholesterol elevated to 104 mg/dL, and is currently on pravastatin 20 mg daily, which is planned to be increased to 40 mg due to persistent elevation. Her diabetes mellitus is managed with glimepiride 2 mg once daily and metformin 1000 mg twice daily, with a recent hemoglobin A1c of 6.1%. The patient has osteopenia, with the last bone density test conducted in August 2021. She also has osteoarthritis of the left knee, status post knee replacement in June 2022, and right shoulder osteoarthritis, for which physical therapy has been advised. Her hypertension is controlled with losartan 50 mg and amlodipine 5 mg daily. She has interstitial lung disease, primarily a radiologic finding, with no significant symptoms, and is advised to continue monitoring with CT scans. The patient reports hearing loss and memory loss, which are being monitored. She also experiences dysphagia, particularly when talking while eating, and has been advised to be cautious to prevent aspiration. Vitamin B12 deficiency is noted, with a level of 176, and supplementation has been recommended. She has been advised to take B12 supplements regularly to prevent nerve damage. Health Maintenance - Vaccinations: Flu shot, shingles, tetanus, and pneumonia vaccines are up to date. - Bone density: Last test in August 2021, advised to consider repeat testing. - Vitamin B12 supplementation: Recommended due to deficiency. Social History - Family: Lives with family, daughter works in a hospital. - Travel: Visits family in [place], noted changes in health during travel. Review of Systems - General: Denies fever, nausea, or vomiting. - HEENT: Reports hearing loss and memory loss. - Respiratory: Denies dyspnea or chest pain. - Gastrointestinal: Reports dysphagia, denies abdominal pain. - Musculoskeletal: Reports right shoulder pain, denies other joint pain. Physical Exam General: Cooperative, healthy appearing, comfortable, no acute distress and well developed Orientation: Patient oriented x3 Limitations: No limitations Head: Normal to inspection Ears: Hearing loss noted, requires further evaluation Nose: Normal external nose present Face and sinus: Normal facial exam Eyes: Appearance normal, both eyes and all related structures Neck: Normal visual inspection and Yes full ROM Respiratory: Normal respiratory effort and able to speak in complete sentences. Clear to auscultation bilaterally Cardiovascular: Regular rate and rhythm. Normal S1 and S2 GI: Normal to inspection. Soft to palpation and nontender Skin: No rashes or lesions noted Neuro: Patient oriented x3, noted memory loss Extremities: Normal to inspection, noted falls during walking Results - Labs: Normal blood count, normal electrolytes, renal function normal, blood sugar 105 mg/dL, hemoglobin A1c 6.1%, LDL cholesterol 104 mg/dL, vitamin B12 level 176. Plan Patient was informed and verbally consented to the use of an ambient scribe for clinic note documentation during this visit. 1. Hypercholesterolemia The patient's LDL cholesterol is elevated at 104 mg/dL, and the current pravastatin dose of 20 mg is planned to be increased to 40 mg to achieve better control. 2. Diabetes Mellitus Diabetes is managed with glimepiride 2 mg once daily and metformin 1000 mg twice daily, with a target hemoglobin A1c of less than 7.0%. 3. Osteopenia The patient has osteopenia, with the last bone density test conducted in August 2021, and is advised to consider repeat testing. 4. Osteoarthritis Of The Left Knee The patient underwent left knee replacement in June 2022 for osteoarthritis and is advised to continue monitoring and management as needed. 5. Hypertension Hypertension is controlled with losartan 50 mg and amlodipine 5 mg daily. 6. Interstitial Lung Disease The patient has interstitial lung disease, primarily a radiologic finding, with no significant symptoms, and is advised to continue monitoring with CT scans. 7. Right Shoulder Osteoarthritis The patient has right shoulder osteoarthritis and has been advised to undergo physical therapy. 8. Vitamin B12 Deficiency Vitamin B12 deficiency is noted, with a level of 176, and supplementation has been recommended to prevent nerve damage. 9. Hearing Loss The patient reports hearing loss, which is being monitored. 10. Memory Loss The patient reports memory loss, which is being monitored. 11. Dysphagia The patient experiences dysphagia, particularly when talking while eating, and has been advised to be cautious to prevent aspiration. 12. Temporomandibular Joint Disorder The patient has temporomandibular joint disorder, and management includes monitoring and addressing any associated symptoms. Discussion Notes During the visit, we discussed the management of hypercholesterolemia, including increasing the pravastatin dose to 40 mg to better control LDL levels. We also reviewed the diabetes management plan, emphasizing the importance of maintaining a hemoglobin A1c below 7.0%. The patient was advised on the need for regular B12 supplementation due to deficiency and the potential for nerve damage if not addressed. Patient Instructions - Take pravastatin 40 mg at night to manage cholesterol levels. - Continue diabetes medications as prescribed and monitor blood sugar levels regularly. - Take vitamin B12 supplements daily to prevent deficiency-related complications. - Be cautious while eating to prevent choking and aspiration. - Follow up with physical therapy for right shoulder osteoarthritis. Orders: Orders AMB Hemoglobin A1c Today Z13.9 - Encounter for screening, unspecified Comprehensive Met. Panel 3 Months E78.00 - Pure hypercholesterolemia, unspecified Influenza [id number] Immunization Today Z23 - Encounter for immunization Lipid Panel 3 Months E78.00 - Pure hypercholesterolemia, unspecified Hemoglobin A1c 3 Months E78.00 - Pure hypercholesterolemia, unspecified XR DEXA axial skeleton Today M81.0 - Age-related osteoporosis without current pathological fracture, M85.80 - Other specified disorders of bone density and structure, unspecified site Referrals Speech and Hearing Referral H91.90 - Unspecified hearing loss, unspecified ear Medications: Changed From pravastatin 20 mg PO DAILY 90 tabs 1RF E78.00 - Pure hypercholesterolemia, unspecified To pravastatin 40 mg PO DAILY 30 tabs 3RF E78.00 - Pure hypercholesterolemia, unspecified Refilled mecobalamin (vitamin B12) (B12 Active) 1,000 mcg PO DAILY 90 tabs 3RF E78.00 - Pure hypercholesterolemia, unspecified
[2024-12-26 09:17] VITALS: BP 126/60; PULSE 79; TEMP 36.2; O2SAT 95; BMI 26.1
== END 2024-12-26 10:21 | disposition home or self-care (01) ==
LOC: HO.HMCH 09:14
PROVIDERS: PCP Internal Medicine; Visit Provider Internal Medicine
DX: Z00.00 Encounter for general adult medical examination without abnormal findings (principal); E11.65 Type 2 diabetes mellitus with hyperglycemia; J84.9 Interstitial pulmonary disease, unspecified; I10 Essential (primary) hypertension; E78.00 Pure hypercholesterolemia, unspecified; M85.80 Other specified disorders of bone density and structure, unspecified site; E53.8 Deficiency of other specified B group vitamins; M19.011 Primary osteoarthritis, right shoulder; H91.90 Unspecified hearing loss, unspecified ear; Z23 Encounter for immunization

== ENCOUNTER → 2024-12-26 09:13 | Outpatient (BNVA) | payer OTHER, SELFPAY | PROVIDERS: PCP Internal Medicine; Visit Provider Internal Medicine | DX: Z00.00 Encounter for general adult medical examination without abnormal findings (principal); Z23 Encounter for immunization; E11.65 Type 2 diabetes mellitus with hyperglycemia; I10 Essential (primary) hypertension; E78.00 Pure hypercholesterolemia, unspecified; M85.80 Other specified disorders of bone density and structure, unspecified site; E53.8 Deficiency of other specified B group vitamins; M19.011 Primary osteoarthritis, right shoulder; J84.9 Interstitial pulmonary disease, unspecified; H91.90 Unspecified hearing loss, unspecified ear; M17.12 Unilateral primary osteoarthritis, left knee; R13.10 Dysphagia, unspecified; M26.609 Unspecified temporomandibular joint disorder, unspecified side; R41.3 Other amnesia; Z79.84 Long term (current) use of oral hypoglycemic drugs; Z79.899 Other long term (current) drug therapy; Z13.31 Encounter for screening for depression | CPT/HCPCS: 83036; 90471; 90656; 96127; 99397 ==

== ENCOUNTER 2025-01-25 09:15 | Outpatient (REF) | payer OTHER, SELFPAY ==
--- OUTSIDE RECORDS SUMMARY | 2024-07-26 05:00 | XMS_ITS ---
Author Organization [facility] Address [address] [place] [phone] Care Team Providers Care Hydro Pneumatic Tester Name Role Phone Johnathan Mcginnis Primary Care Provider UnavailBoubacar Orta Unavailable [phone] Encounters Encounter Location Date Provider Diagnosis [address] [address] 07/26/2024 Boubacar Allred Plan Of Treatment Next Appt Details Provider Name:Boubacar Allred , 01/30/2025 01:30:00 PM, [address] [place] [address], [phone], Progress Notes * MALONEKymberly VAZQUEZArnoldOB: 4 (80 yo F)Acc No.[id number]:07/26/2024 Progress Notes Patient: Edgar ESPANA Provider: Karthik Allred DPM :1945 A ge:79 Y S ex:Female Date:07/26/2024 Address:[address] [place], [place] [id number] Pcp:Johnathan Mcginnis Subjective: * Chief Complaints: * * Medical History: Objective: * Vitals: Assessment: Plan: * Treatment: * Images: * The named appointment provid er may or may not be the originator of this progress note, and it is not deemed complete until electronically signed by the appointment provider. Sign off status: Pending * Provider: Karthik Allred DPM Date: 0 07/26/2024 Generated for Erik moyer/Radha/Los on: 1 03/27/2024 10:25 AM EST
--- OUTSIDE RECORDS SUMMARY | 2024-10-15 09:00 | XMS_ITS ---
Author Organization [facility] Address [address] [place] [address] Care Team Providers Care Merchandise Flow Team Member Name Role Phone Johnathan Mcginnis Primary Care Provider Unavailabl Boubacar Addison Unavailable [phone] Encounters Encounter Location Date Provider Diagnosis [address] [address] 10/15/2024 Boubacar Allred Plan Of Treatment Next Appt Details Provider Name:Boubacar Allred , 01/30/2025 01:30:00 PM, [address] [place] [address], [phone], Progress Notes * MALONEGloria VAZQUEZVenusOB: 4 (80 yo F)Acc No.[id number]:10/15/2024 Progress Notes Patient: Edgar ESPANA Provider: Karthik Allred DPM :1945 A ge:79 Y S ex:Female Date:10/15/2024 Address:[address] [place], [place] [id number] Pcp:Johnathan Mcginnis Subjective: * Chief Complaints: * * Medical History: Objective: * Vitals: Assessment: Plan: * Treatment: * Images: * The named appointment provid er may or may not be the originator of this progress note, and it is not deemed complete until electronically signed by the appointment provider. Sign off status: Pending * Provider: Karthik Allred DPM Date: 0 10/15/2024 Generated for Erik moyer/Radha/Los on: 1 03/27/2024 10:24 AM EST
--- NOTE | ~2025-01-25 | CT_ITS ---
EXAMINATION: CT CHEST WITHOUT CONTRAST CLINICAL INFORMATION: Abnormal chest radiograph. Rule out interstitial lung disease. COMPARISON: No prior CT. Chest radiograph 09/14/2024. TECHNIQUE: Multidetector volumetric CT imaging of the chest was done. Axial MIP volume rendering provided. Sagittal and coronal reformatted images were obtained. This CT examination was performed using dose optimization techniques as appropriate, variously including the following: *Automated exposure control *Adjustment of mA and/or kV according to patient size (this includes techniques or standardized protocols for targeted exams where dose is matched to indication/reason for exam; i.e. extremities or head) *Use of iterative reconstruction technique FINDINGS: LUNGS: The lungs are well inspired bilaterally. There is very mild centrilobular emphysema. There are no focal consolidations or abnormal groundglass opacities. Minimal mosaic attenuation present, most likely air trapping. There is no convincing evidence of interstitial lung disease. No inter or intra-lobular septal thickening, reticular abnormality, or evidence of peribronchovascular interstitial thickening. There is mild subpleural scarring with mild cylindrical bronchiectasis within the lower lobes, without significant bronchial thickening. This is likely postinflammatory versus related to senescent lung changes. There is no pleural effusion or evidence of pneumothorax. The central airways are widely patent. There is a 4 mm pleural-based nodule in the posterior left upper lobe abutting the major fissure medially, most likely an intrapulmonary lymph node (series 9, image 65). There are no suspicious pulmonary nodules are evident. MEDIASTINUM: There are several right-sided pulmonary nodules present, the largest inferoposteriorly on the right measuring approximately 2.6 x 1.5 cm in axial plane. There is no mediastinal lymphadenopathy or mass. The main pulmonary artery is normal in caliber. The aorta is mild to moderately calcified, without evidence of aneurysm. There is a 2 vessel branching pattern. There is mild cardiac enlargement. There is no pericardial effusion. There is no focal esophageal abnormality. CORONARY ARTERY CALCIFICATION: Heavy. AXILLA/CHEST WALL: There is no mass or abnormal lymph nodes. UPPER ABDOMEN: The imaged contents of the upper abdomen are grossly normal allowing for noncontrast technique. OSSEOUS STRUCTURES: There is no suspicious lytic or blastic bone lesion. There are mild to moderate degenerative spinal changes.. CT/CT chest wo IV con IMPRESSION: 1. There is mild COPD. There is no convincing evidence of interstitial lung disease. There is no acute lung disease identified. 2. There is mild subpleural scarring and associated cylindrical bronchiectasis in the bilateral lower lobes, most likely postinflammatory versus senescent lung changes. 3. There is mild cardiac enlargement with heavy coronary calcifications. 4. There is multinodular goiter. 5. Additional ancillary findings as discussed in the body of the report. Electronically signed by: Adriel Martinez MD 01/25/2025 10:38 AM JG
--- OUTSIDE RECORDS SUMMARY | 2025-01-25 10:24 | XMS_ITS | Clinical Summary ---
Author Organization [facility] Address [address] [facility] [address] [place] [address] Care Team Providers Care Data Collection Interviewer Name Role Phone Unavailable Primary Care Provider [...]
--- OUTSIDE RECORDS SUMMARY | 2025-01-25 10:25 | XMS_ITS | Encounter Summary ---
Author Organization [employer] Address [address] [place] [address] [address] [place] [address] Care Team Providers Care Product Safety Professional Name Role Phone Unavailable Primary Care Provider Unavailabl e Reason for Visit * Reason Comments Med Refill Encounter Details Date Type Department Care Team (Late st Contact Info) Description 03/23/2023 Refill [facility] [address] [place], [place] [id number] Salud Marley [facility] [address] [place], [place] [id number] Tooth pain Social History Tobacco Use Types [...]
--- OUTSIDE RECORDS SUMMARY | 2025-01-25 10:25 | XMS_ITS | Patient Health Record ---
Author Organization [facility] Alexandra Camaraley Address [address] [place] [address] Care Team Providers Care Edm Operator Name Role Phone Johnathan Mcginnis Primary Care Provider Boubacar Black Unavailable [phone] Allergies Allergen (clinical drug ingredient) Drug/Non Drug [...] diabetes cheryl itus with hyperglycemia, unspecified whether fdc insulin use (E11.65) Referring Provider First Name Johnathan Referring Provider Last Name [facility] Referred Provider Boubacar Allred Referred Address [address] [place], [place],[address], Referred Provider Specialty Podiatry Referral Priority Routine [...] Problem Acquired hammer toe of right foot (0799474034777739 ) Other hammer toe(s) (acquired), right foot (M20.41) Active confirmed Problem Acquired hammer toe of left foot (8710434019122500 ) Other hammer toe(s) (acquired), left foot (M20.42) Active confirmed Problem Polyneuropathy due to type 2 diabetes mellitus (050016271) Type 2 diabetes mellitus with diabetic polyneuropathy (E11.42) Active confirmed Vital Signs Height 4 ft 10 in in 10/15/2024 Weight 130 lbs 10/15/2024 BMI 27.17 kg/m2 10/15/2024 Procedures Procedure Date Ordered Date Performed Result Body Sit e 15046-LZQPEVZ NAIL, 6 OR MORE 10/15/2024 N/A 51770-YWJN SKIN LESIONS, OVER 4 10/15/2024 N/A Encounters Encounter [facility] Date [facility] [address] 10/15/2024 Boubacar Allred Type 2 diabetes mellitus with diabetic polyneuropathy E11.42 ; Tinea unguium B35.1 ; Other hammer toe(s) (acquired), right foot M20.41 and Other hammer toe(s) (acquired), left foot M20.[address] [address] 07/16/2024 Boubacarananya Alonzoier Assessments Encounter Date Diagnosis [...] X ray : Foot, right 3V 12/23/2020 10151-[id number] NAIL, 6 OR MORE 10/15/2024 52357-TTEG SKIN LESIONS, OVER 4 10/16/19 25 93371-UJWW SKIN LESIONS, 2 TO 4 12/24/19 21 Next Appt Details Provider Name:Boubacar Allred , 01/30/2025 01:30:00 PM, [address] [place] [address], [place], [address], Insurance Providers Payer Name Payer Address Payer Phone Subscriber Number Group Number Insured Name Patient Relationship to Insured Coverage Start Date Coverage End Date [facility] [address] [id number] [phone] [id number] Edgar Malone Self - patient is the [...]
== END 2025-01-25 09:16 | disposition home or self-care (01) ==
LOC: HO.CT 09:15
PROVIDERS: PCP Internal Medicine; Visit Provider Internal Medicine
DX: J84.9 Interstitial pulmonary disease, unspecified (principal); R05.9 Cough, unspecified
CPT/HCPCS: 71250

== ENCOUNTER → 2025-01-25 09:17 | Outpatient (BNV) | payer OTHER, SELFPAY | PROVIDERS: PCP Internal Medicine; Visit Provider Radiology Diagnostic Radiology | DX: J84.9 Interstitial pulmonary disease, unspecified (principal) | CPT/HCPCS: 71250 ==